=== PATIENT | female | born 1945 | race Caucasian/White ===

== ENCOUNTER 2016-08-24 10:34 | Emergency (ER) | payer OTHER, MEDICAID ==
[2016-08-24] MEDS ORDERED: NITROGLYCERIN 0.4 MG 25 EA TAB SL ONE (10:53)
[2016-08-24] MEDS: NITROGLYCERIN 0.4 MG 25 EA TAB SL PRN ×2 (10:55→11:15)
[2016-08-24] MEDS ORDERED: ASPIRIN (CHEWABLE) 81 MG TAB PO ONE (10:57)
[2016-08-24 11:07] VITALS: TEMP 97
--- NOTE | 2016-08-24 11:25 | RAD ---
EXAM DESCRIPTION: XR CHEST 1 VIEW 08/24/2016 11:17 AM CLINICAL HISTORY: 70 y/o , F, sob COMPARISON: PA and lateral views the chest April 20, 2012 FINDINGS: There is moderate peribronchial thickening throughout the lungs bilaterally. There is patchy right basilar airspace disease. The heart is mildly enlarged. The mediastinal contours are normal in appearance. The thoracic spine is age appropriate. The shoulders are unremarkable. Limited evaluation of the upper abdomen demonstrates no gross abnormalities. IMPRESSION: 1. Cardiomegaly with mild interstitial pulmonary edema. 2. Right basilar airspace disease, likely atelectasis of secondary to edema. Electronically signed by: Maryan Medley MD 08/24/2016 11:23
[2016-08-24] MEDS ORDERED: NITROGLYCERIN/D5W IV 250 ML IVS SCH (11:30)
[2016-08-24] MEDS ORDERED: METOPROLOL TARTRATE INJ 5 MG/5 ML VIAL IV ONE (11:52)
[2016-08-24] MEDS ORDERED: ENOXAPARIN SODIUM 100 MG/ML SYG SUBCU ONE (11:55)
[2016-08-24] MEDS ORDERED: CLOPIDOGREL 75 MG TAB PO ONE (11:55)
[2016-08-24] MEDS ORDERED: ENOXAPARIN SODIUM 30 MG/0.3 ML SYG SUBCU ONE (12:15)
[2016-08-24] MEDS ORDERED: TENECTEPLASE 50 MG VIAL IV ONE (12:18)
--- NOTE | 2016-08-24 12:24 | ED.PDOC ---
History of Present Illness - General Chief Complaint: Respiratory Problem Stated Complaint: shortness of breath Time Seen by Provider: 08/24/16 10:48 Source: patient Exam Limitations: no limitations - History of Present Illness Initial Comments: the patientit is a 70-year-old female presenting to the emergency room secondary to fairly abrupt onset shortness of breath at around 8:30 this morning. Mild chest discomfort to the right upper chest. She reports having had a small cardiac event 4-[address] Braswell at that time. She is only taking a baby aspirin and a blood pressure medication currently. She reports having developed the flu a few days ago. No syncope or near syncope. Just shortness of breath primarily. Systolic blood pressure upon arrival was in the 250s. This was confirmed. The patient was also in atrial fibrillation with a right bundle branch block which was new. We do not have previous EKGs to compare to. There is also some concern for possible ST segment elevation in 2, 3 and aVF. Timing/Duration: 1-3 hours Severity: moderate Improving Factors: nothing Worsening Factors: nothing Allergies/Adverse Reactions: Allergies NO KNOWN ALLERGY Allergy (Verified 08/24/16 11:07) Review of Systems - Review of Systems Constitutional: States: malaise EENTM: States: no symptoms reported Respiratory: States: orthopnea, short of breath Cardiology: States: chest pain - sydnee mild and in the right upper side Gastrointestinal/Abdominal: States: no symptoms reported Genitourinary: States: no symptoms reported Musculoskeletal: States: no symptoms reported Skin: States: no symptoms reported Neurological: States: no symptoms reported All other Systems: No Change from Baseline Past Medical History (General) - Patient Medical History Hx Cardiac Disorders: Yes - PR Hx Congestive Heart Failure: No Hx Hypertension: Yes Surgical History: no surgical history - Vaccination History Hx Influenza Vaccination: No Hx Pneumococcal Vaccination: No - Social History Hx Tobacco Use: No Family Medical History - Family History Mother Family History: Unknown Living Status: Unknown Physical Exam - Physical Exam General Appearance: Alert, Obvious distress, Ill Appearing Eye Exam: bilateral normal Ears, Nose, Throat: normal ENT inspection, normal pharynx Neck: full range of motion, supple, normal inspection Respiratory: other - mild bibasilar rales. Mild increased work of breathing. No significant accessory muscle use. Cardiovascular/Chest: normal peripheral pulses, no edema, other - irregular rhythm Peripheral Pulses: radial,right: 2+, radial,left: 2+ Gastrointestinal/Abdominal: non tender, soft Rectal Exam: deferred Back Exam: normal inspection, no CVA tenderness Extremity: normal range of motion, non-tender, normal inspection, no pedal edema , normal capillary refill Neurologic: alert, normal mood/affect, oriented x 3 Skin Exam: normal color Comments: Vital Signs - 24 hr 08/24/16 08/24/16 08/24/16 11:04 11:13 11:16 Temperature 97 F L Pulse Rate [ 89 89 Left Brachial] Respiratory 24 24 Rate Blood Pressure 200/122 173/117 [Left Arm] O2 Sat by Pulse 96 97 97 Oximetry 08/24/16 08/24/16 08/24/16 11:25 11:40 11:49 Temperature Pulse Rate [ 98 H 98 H 84 Left Brachial] Respiratory 22 26 H 24 Rate Blood Pressure 160/112 173/94 [Left Arm] O2 Sat by Pulse 97 98 Oximetry Progress - Progress Progress: 08/24/16 12:26 the patient is a 70-year-old female presenting with shortness of breath and pulmonary edema related to what appears to be an inferior myocardial infarction. This does appear to be a ST elevation myocardial infarction. I have discussed this patient with cardiology on-call and they do agree that lytics appear warranted based on the EKG and the patient presentation. The patient is being given Lovenox, Plavix, IV nitroglycerin, IV Lopressor, and TNKase along with a dose of aspirin. She is also receiving oxygen. She has not received morphine at this time. Blood pressures have improved significantly with the nitroglycerin and Lopressor. The patient will be continued on the nitroglycerin drip and titrated to an improved systolic blood pressure. Systolic blood pressure was under 180 prior to dosage of the TNKase. Check list was performed prior. Consent was performed prior. The patient will be transferred for higher level of care and likely catheterization. shortness of breath has improved significantly with reduction in blood pressure and the nitroglycerin. 50 minutes of critical care time used in treatment and medical decision making excluding other potentially billable procedures and services. - Results/Orders Results/Orders: Laboratory Tests 08/24/16 10:56 WBC 11.1 H RBC 4.53 Hgb 14.1 Hct 42.4 MCV 93.5 MCH 31.2 H MCHC 33.4 RDW 13.5 Plt Count 272 MPV 9.1 Absolute Neuts (auto) 9.20 H Absolute Lymphs (auto) 1.20 Absolute Monos (auto) 0.50 Absolute Eos (auto) 0.10 Absolute Basos (auto) 0.10 Neutrophils % 82.9 H Lymphocytes % 10.9 L Monocytes % 4.4 Eosinophils % 0.7 L Basophils % 1.1 PT 11.4 INR 1.010 PTT (SP) 29.0 D-Dimer, Quantitative 332 H* Sodium 138 Potassium 3.3 L Chloride 100 L Carbon Dioxide 25 Anion Gap 16.3 BUN 20 H Creatinine 0.90 BUN/Creatinine Ratio 22.2 H Random Glucose 195 H Serum Osmolality 283.7 Calcium 10.0 Magnesium 1.6 L Total Bilirubin 0.5 AST 38 ALT 22 Alkaline Phosphatase 65 Creatine Kinase 151 H CK-MB (CK-2) 21.5 H* CK-MB (CK-2) % 14.24 H Troponin I 2.51 H* B-Natriuretic Peptide 357.0 H* Serum Total Protein 9.1 H Albumin 3.7 Globulin 5.4 H Albumin/Globulin Ratio 0.7 L chest x-ray shows cardiomegaly and some pulmonary edema. Multiple repeat EKG repeat EKGs show atrial fibrillation with good rate control with frequent PVCs. One EKG appears to be a sinus rhythm. The patient does have [address] segment elevation in 2, 3 and aVF consistently. She also has a right bundle branch block. There are T-wave inversions in anterior leads but these are less specific. 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
[2016-08-24 12:52] VITALS: BP 172/126; O2SAT 96
== END 2016-08-24 12:52 | disposition short-term general hospital (02) ==
LOC: ER 10:34
DX: I21.3 ST elevation (STEMI) myocardial infarction of unspecified site (principal); I45.10 Unspecified right bundle-branch block; Z79.82 Long term (current) use of aspirin; Z79.899 Other long term (current) drug therapy; I48.91 Unspecified atrial fibrillation; I25.2 Old myocardial infarction; I10 Essential (primary) hypertension

== ENCOUNTER 2016-09-05 13:25 | Observation (INO) | payer OTHER, MEDICAID ==
--- NOTE | 2016-09-05 13:58 | RAD ---
Study: Single Frontal View of the Chest. Indication:SOB Comparison: August 24, 2016. Impression: Cardiomegaly with slightly improved minimal interstitial edema. Improved aeration right lung base with minimal opacity versus atelectasis persisting. There is however slightly progressed small left pleural effusion. Short-term followup recommended. No pneumothorax. Electronically signed by: Alexander Carrillo MD 09/05/2016 13:56
--- NOTE | 2016-09-05 14:06 | ED.PDOC ---
History of Present Illness - General Chief Complaint: Respiratory Problem Stated Complaint: shortness of breath Time Seen by Provider: 09/05/16 13:39 Source: patient, RN notes reviewed, Vital Signs reviewed, family, old records Exam Limitations: no limitations - History of Present Illness Initial Comments: Patient is a 70 y/o female who recently suffered an MD on 08/24/2016. She was sent to [facility] and underwent a catheterization which showed a completely occluded LAD. This was stented. Patient reports minor SOB over the past week, with increasing SOB the past two days. Today she called her daughter to bring her to the ED because she couldln't breathe. She denies any chest pain. Timing/Duration: getting worse, other - 1 week, increased past 2 days Severity: severe Improving Factors: nothing Worsening Factors: nothing Associated Symptoms: shortness of breath Allergies/Adverse Reactions: Allergies NO KNOWN ALLERGY Allergy (Verified 09/05/16 13:36) Home Medications: Ambulatory Orders Apixaban [Eliquis] 5 mg PO BID 09/05/16 Aspirin [Aspirin Adult Low Dose] 81 mg PO DAILY 09/05/16 Atorvastatin Calcium [Lipitor] 40 mg PO BEDTIME 09/05/16 Calcium Carbonate 600 mg PO BID 09/05/16 Lisinopril 20 mg PO DAILY 09/05/16 Metoprolol Succinate [Metoprolol Succinate ER] 50 mg PO DAILY 09/05/16 Nitroglycerin 0.4 mg SL PRN 09/05/16 Review of Systems - Review of Systems Constitutional: States: no symptoms reported EENTM: States: no symptoms reported Respiratory: States: short of breath Cardiology: States: no symptoms reported. Denies: chest pain, edema, palpitations Gastrointestinal/Abdominal: States: no symptoms reported Genitourinary: States: no symptoms reported Musculoskeletal: States: no symptoms reported Skin: States: no symptoms reported Neurological: States: no symptoms reported Endocrine: States: no symptoms reported Hematologic/Lymphatic: States: no symptoms reported All other Systems: Reviewed and Negative Past Medical History (General) - Patient Medical History Hx Cardiac Disorders: Yes - MD, stent Hx Congestive Heart Failure: No Hx Hypertension: Yes - Vaccination History Hx Influenza Vaccination: No Hx Pneumococcal Vaccination: No - Social History Hx Tobacco Use: No - Activities of Daily Living Hospice Agency (if applicable):: None - Female History Patient is a Female of Child Bearing Age (10 -59 yrs old): No Patient : No Family Medical History - Family History Mother Family History: Unknown Living Status: Unknown Physical Exam - Physical Exam General Appearance: Alert, Anxious, Obvious distress Eye Exam: bilateral normal Ears, Nose, Throat: hearing grossly normal, normal ENT inspection Respiratory: lungs clear, respiratory distress, decreased breath sounds, accessory muscle use, other Cardiovascular/Chest: normal peripheral pulses, no JVD, no murmur, irregularly irregular Gastrointestinal/Abdominal: normal bowel sounds, non tender, soft, no organomegaly Extremity: non-tender, swelling - trace LE edema Neurologic: alert, normal mood/affect, oriented x 3 Skin Exam: normal color, warm/dry Progress - Progress Progress: 09/05/16 15:05 This 70 y/o female had an STEMI on 08/24/2016 which was stented. According to Dr. Braswell, she has diagnonal and side branch LAD, circumflex, and RCA partial to total occlusions. On Echo, she has severe Mitral Valve regurgitation and lower apical akenesis. Since he will be here tomorrow, and because this is clearly a CHF exacerbation, he recommends admitting her here and he will come to see her. - Results/Orders Results/Orders: 09/05/16 09/05/16 09/05/16 13:25 13:42 13:47 Temperature 98.4 F Pulse Rate [ 97 H 79 pulse ox] Respiratory 30 H 32 H 28 H Rate Blood Pressure 157/122 156/76 [Right Arm] O2 Sat by Pulse 94 L 93 L Oximetry 09/05/16 14:24 Temperature Pulse Rate [ 86 pulse ox] Respiratory 24 Rate Blood Pressure 145/98 [Right Arm] O2 Sat by Pulse 95 Oximetry 09/05/16 14:00 EKG STAT Laboratory Results WBC 12.1 K/mm3 (4.8-10.8) H 09/05/16 13:40 RBC 3.52 M/mm3 (4.20-5.40) L 09/05/16 13:40 Hgb 11.33 gm/dL (12.0-16.0) L 09/05/16 13:40 Hct 33.2 % (36.0-47.0) L 09/05/16 13:40 MCV 94.2 fl (81.0-99.0) 09/05/16 13:40 MCH 32.1 pg (27.0-31.0) H 09/05/16 13:40 MCHC 34.0 g/dL (33.0-37.0) 09/05/16 13:40 RDW 13.4 % (11.5-14.5) 09/05/16 13:40 Plt Count 276 K/mm3 (130-400) 09/05/16 13:40 MPV 8.3 fl (7.40-10.4) 09/05/16 13:40 Absolute Neuts (auto) 11.70 K/uL (1.8-6.8) H 09/05/16 13:40 Absolute Lymphs (auto) 1.80 K/uL (1.0-3.4) 09/05/16 13:40 Absolute Monos (auto) 0.90 K/uL (0.2-0.8) H 09/05/16 13:40 Absolute Eos (auto) 0.20 K/uL (0.0-0.4) 09/05/16 13:40 Absolute Basos (auto) 0.10 K/uL (0.0-0.1) 09/05/16 13:40 Neutrophils % 79.5 % (42.0-78.0) H 09/05/16 13:40 Lymphocytes % 12.2 % (20.0-50.0) L 09/05/16 13:40 Monocytes % 5.9 % (2.0-9.0) 09/05/16 13:40 Eosinophils % 1.4 % (1.0-5.0) 09/05/16 13:40 Basophils % 1.4 % (0.0-2.0) 09/05/16 13:40 PT 26.9 SECONDS (9.4-12.5) H* 09/05/16 13:40 INR 2.460 09/05/16 13:40 PTT (SP) 36.9 SECONDS (25.1-36.5) H 09/05/16 13:40 D-Dimer, Quantitative 995 ng/mL (0-230) H* 09/05/16 13:40 Sodium 138 mmol/L (135-145) 09/05/16 13:40 Potassium 3.9 mmol/L (3.6-5.0) 09/05/16 13:40 Chloride 105 mmol/L (101-111) 09/05/16 13:40 Carbon Dioxide 26 mmol/L (21-31) 09/05/16 13:40 Anion Gap 10.9 (12-18) L 09/05/16 13:40 BUN 20 mg/dL (7-18) H 09/05/16 13:40 Creatinine 0.83 mg/dL (0.6-1.3) 09/05/16 13:40 BUN/Creatinine Ratio 24.1 (10-20) H 09/05/16 13:40 Random Glucose 157 mg/dL (70-105) H 09/05/16 13:40 Serum Osmolality 281.5 mOsm/L (275-295) 09/05/16 13:40 Calcium 9.1 mg/dL (8.4-10.2) 09/05/16 13:40 Magnesium 2.0 mg/dL (1.8-2.5) 09/05/16 13:40 Creatine Kinase 33 IU/L (26-140) 09/05/16 13:40 CK-MB (CK-2) 2.5 ng/mL (0.0-4.4) 09/05/16 13:40 CK-MB (CK-2) % Not Reportable 09/05/16 13:40 Troponin I 0.45 ng/mL (0.01-0.05) H* 09/05/16 13:40 B-Natriuretic Peptide 2140.0 pg/ml (0-100) H* 09/05/16 13:40 - EKG/XRAY/CT EKG: RBBB, nonspecific ST T wave Chg - T-wave inversion II, III, aVF, V1, V3, Changed from - No ST elevation - EKGs from 08/24/2016 reviewed Comments: Undetermined rhythm, 86 BPM, INT: RBBB, Lateral infarct (Hx) XRAY: chest Xray Comments: small left pleural effusion, cardiomegaly - Consult/PCP Time Called: 14:30 Consult/PCP: Dr. Braswell Consult Reason/Comments: CHF - admit, diurese and he will see tomorrow. - Additional EKG/XRAY/Consults EKG #2: Atrial, Fibrillation - 88 BPM, RBBB, nonspecific ST T wave Chg - T-wave inversion III, aVF, V3, V4, V5 and V6 Comments: Right-sided, No comparison, Interpretation: Inferior ischemia Departure - Departure Clinical Impression: Acute exacerbation of congestive heart failure Time of Disposition: 15:25 Disposition: Admit Patient Condition: Poor Departure Forms: ED Discharge - Pt. Copy, Patient Portal Self Enrollment Home Medications: Ambulatory Orders Apixaban [Eliquis] 5 mg PO BID 09/05/16 Aspirin [Aspirin Adult Low Dose] 81 mg PO DAILY 09/05/16 Atorvastatin Calcium [Lipitor] 40 mg PO BEDTIME 09/05/16 Calcium Carbonate 600 mg PO BID 09/05/16 Lisinopril 20 mg PO DAILY 09/05/16 Metoprolol Succinate [Metoprolol Succinate ER] 50 mg PO DAILY 09/05/16 Nitroglycerin 0.4 mg SL PRN 09/05/16 Decision To Admit - Decistion To Admit Decision to Admit Reason: Admit from ER Decision to Admit Date: 09/05/16 Decision to Admit Time: 14:58 - Elkin Williamson., accepted
[2016-09-05] MEDS ORDERED: FUROSEMIDE INJ 100 MG/10 ML VIAL IV ONE (14:17)
--- NOTE | 2016-09-05 15:41 | HP ---
SUPERVISING PHYSICIAN: Reynold Groves MD CHIEF COMPLAINT: Shortness of breath. HISTORY OF PRESENT ILLNESS: This is a 70 year-old female patient who presented to the Emergency Room this afternoon having shortness of breath. She is a patient of Siomara Lozano at [facility]. On August 24, she was in the Emergency Room and was transferred to [facility] due to an acute myocardial infarction. She underwent a catheterization at the time of admission at [facility] and which showed a completely occluded left anterior descending that was stented. Dr. Braswell was the rd lab technician. An echocardiogram was done. She was discharged on the . She was to have a followup appointment with Dr. Braswell today and her daughters were taking her to [place]. When she was trying to get her into the car she became very short of breath and stated she could not breathe. The patient states this has been going on for the last 2 to 3 days and progressively worsened so much today that she had difficulty even getting into the car. She presented to the Emergency Room and her oxygen saturations were fairly stable in the low 90s but she was extremely tachypneic with a respiratory rate of 38 breaths per minute. In the Emergency Room, her WBC was 12.1, RBC 3.52, hemoglobin 11.3, hematocrit 33.2. She had a left shift. Her sodium was 138, potassium 3.9, BUN 20, creatinine 0.83. Troponin was slightly elevated at 0.45 and her BNP was 2,140. The Emergency Room physician called Dr. Braswell and he recommended she be admitted to the hospital for congestive heart failure and diuresis and he would see her tomorrow when he came to [place] for his clinic day. I was called for hospital admission. She was given 80 mg of Lasix in the Emergency Room. PAST MEDICAL HISTORY: 1. Coronary artery disease. 2. Hyperlipidemia. 3. Elevated fasting glucose. 4. Hypertension. 5. Gastroesophageal reflux disease. 6. Acute [place] in August 2016. PAST SURGICAL HISTORY: 1. Coronary artery stent placement in 2008. 2. Stent placement in August 2016. CURRENT MEDICATIONS: Per the EMR awaiting verification. ALLERGIES: NO KNOWN DRUG ALLERGIES. SOCIAL HISTORY: She is retired. She has 3 children. She denies any tobacco, ETOH or illicit drug use. REVIEW OF SYSTEMS: GENERAL: She complains of a slight weight gain but she does not know the exact weight increase. She also complains of fatigue. Denies any chills or fever. HEENT: Denies sinus symptoms, vision changes, ear pain or sore throat. RESPIRATORY: As per the history of present illness. CARDIAC: Denies chest pain, palpitations or tachycardia. GI: Denies nausea, vomiting, diarrhea or constipation. NEUROLOGICAL: Denies headaches, dizziness or seizures. EXTREMITIES: Denies any edema to the lower extremities. PHYSICAL EXAMINATION: VITAL SIGNS: She is afebrile. Heart rate 78, blood pressure 154/95, respiratory rate has varied from 38 on admission to the low 30s and down to the low 20s, most of the time is around 28 breaths per minute. 02 saturation is 94 % on 2 liters nasal cannula. GENERAL: This is a 70 year-old obese female who is lying in her hospital bed. She is in mild respiratory distress. HEENT: Normocephalic and atraumatic. Pupils are equal and reactive. Oropharynx is clear. NECK: Supple without masses. There is a slightly discernible jugular venous distention. CHEST: There are a few fine scattered crackles throughout the apices, otherwise , somewhat diminished breath sounds. CARDIOVASCULAR: Regular rate and rhythm. ABDOMEN: Rounded, obese, nondistended, non-tender. Bowel sounds are positive. EXTREMITIES: There is a +1 pedal edema to bilateral lower extremities. Her pedal pulses are +1 bilaterally. NEUROLOGIC: She is awake, alert, and oriented x3. LABORATORY: As per history of present illness. RADIOLOGY: Chest x-ray shows cardiomegaly with slightly improved minimal interstitial edema with a minimal opacity versus atelectasis in the right lung base. There is a small left pleural effusion. All other labs and films have been reviewed via the EMR. ASSESSMENT: 1. Congestive heart failure of unknown etiology, new onset with BNP of greater than 2000. 2. Recent acute [place] with stent placement at [facility] on 08/24/16. 3. Coronary artery disease. 4. Hyperlipidemia. 5. Elevated glucose without diagnosis of diabetes mellitus. 6. Hyperlipidemia. 7. Acid reflux. PLAN: We will admit the patient under the congestive heart failure guidelines. Dr. Braswell will see the patient tomorrow when he is in [place]. I have ordered some Lasix. I will recheck her potassium and magnesium later this evening. I will also put her on Accu-Cheks as her blood sugars are slightly elevated. We will order Protonix for ulcer prophylaxis as well as Lovenox for DVT prophylaxis. I will restart her home medications. Will do routine labs and chest x-ray in the morning. She will need close followup with Siomara Rosado at [facility] as well as Dr. Braswell. We will continue to monitor the patient closely and followup as needed. Dr. Groves is the collaborating physician available for consultation. #[id number] [facility]
[2016-09-05] MEDS ORDERED: NITROGLYCERIN 0.4 MG 25 EA TAB SL PRN ×2 (18:10→18:11)
[2016-09-05] MEDS ORDERED: SODIUM CHLORIDE 0.9% (FLUSH) 10 ML SYG IV PRN (18:11)
[2016-09-05] MEDS ORDERED: IV SET AND CAP CHANGE INJ INJ SCH ×2 (18:30)
[2016-09-05] MEDS ORDERED: FUROSEMIDE INJ 40 MG/4 ML VIAL IV ONE (20:00)
[2016-09-05] MEDS: SODIUM CHLORIDE 0.9% (FLUSH) 10 ML SYG IV PRN (20:21)
[2016-09-05] MEDS ORDERED: HYDROcodone 10MG/APAP 325MG 1 EA TAB ONE (22:31)
[2016-09-05] MEDS ORDERED: ENOXAPARIN SODIUM 40 MG/0.4 ML SYG SUBCU SCH (23:45)
[2016-09-05] MEDS ORDERED: GLUCAGON INJ 1 MG VIAL SUBCU PRN (23:56)
[2016-09-05] MEDS ORDERED: DEXTROSE 50% 25 GM/50 ML SYG IV PRN (23:56)
--- NOTE | 2016-09-06 00:14 | PCM.CORE ---
Physician DVT/VTE - Prophylaxis Currently: Patient already on anticoagulation therapy - Nurse DVT Assessment & Total Each Risk Factor Represents 3 Points: Medical PT with Hx of VT, CHF, Severe infection/sepsis Each Risk Factor is 1 Point: Obesity (BMI >25) DVT Assessment Score: 4 - 3-4 High Risk Treatments: Early Ambulation *, Sequential Compression Device
[2016-09-06] MEDS ORDERED: POTASSIUM CHLORIDE 20 MEQ TAB PO ONE (00:15)
[2016-09-06] MEDS: PANTOPRAZOLE SODIUM IV 40 MG VIAL IV SCH ×2 (00:15→23:32)
--- NOTE | 2016-09-06 06:59 | RAD ---
EXAM: Two view chest. INDICATION: Chest pain. COMPARISON: Chest x-ray: 09/05/2016. FINDINGS: There is pulmonary vascular congestion with interstitial edema. Small pleural effusions are present. The heart is enlarged. There is no pneumothorax. The bones are unchanged. IMPRESSION: CHF exacerbation Electronically signed by: Keagan Wong MD 09/06/2016 6:58 AM [employer]
[2016-09-06] MEDS: INSULIN LISPRO 100 UNITS/ML PEN SUBCU SCH ×4 (07:22→21:58)
[2016-09-06] MEDS: LISINOPRIL 10 MG TAB PO SCH (08:40)
[2016-09-06] MEDS: ASPIRIN EC 81 MG TAB PO SCH (08:40)
[2016-09-06] MEDS: SODIUM CHLORIDE 0.9% (FLUSH) 10 ML SYG IV SCH ×2 (08:42→20:34)
[2016-09-06] MEDS: APIXABAN 2.5 MG TAB PO SCH ×2 (08:48→20:33)
[2016-09-06] MEDS: METOPROLOL SUCCINATE XL 50 MG TAB PO SCH (08:48)
[2016-09-06] MEDS ORDERED: NITROGLYCERIN 0.2 MG/HR PATCH TD SCH (09:00)
[2016-09-06] MEDS ORDERED: FUROSEMIDE INJ 40 MG/4 ML VIAL IV SCH (09:00)
[2016-09-06] MEDS: ACETAMINOPHEN 325 MG TAB PO PRN (10:52)
[2016-09-06] MEDS: NITROGLYCERIN 0.4 MG/HR PATCH TOP SCH (12:35)
[2016-09-06] MEDS: HYDROcodone 5MG/APAP 325MG 1 EA TAB PO PRN ×2 (16:06→20:33)
[2016-09-06] MEDS ORDERED: FUROSEMIDE INJ 20 MG/2 ML VIAL IV ONE ×2 (17:00)
--- NOTE | 2016-09-06 19:11 | PN ---
DATE: 09/06/16 SUPERVISING PHYSICIAN: Donny Spears M.D. SUBJECTIVE: The patient feels much better today. He did diurese off a good deal of fluids and feels much better today as far as breathing and respiratory effort. She remains afebrile. OBJECTIVE: T max 97.6, pulse 82, blood pressure 147/94, respirations 20, O2 sat showing 98% on nasal cannula at 1 liter at rest. I's and O's show 480 in, 2850 out with a total negative balance of 2370. Weight 117.0 kg. CHEST: Lungs are much improved today. There is no obvious rales or rhonchi but lungs do continue to be diminished towards the bases. HEART: regular rate and rhythm. ABDOMEN: Obese but soft, non-tender. Positive bowel sounds. EXTREMITIES: There is only a trace of edema this morning bilaterally. NEUROLOGIC: She is alert and oriented times three. LABORATORY: White count 14.2, hemoglobin 11.7, hematocrit 35.2, platelet count 83,000. Differential does continue to show a left shift. Chemistries today show normal electrolytes with potassium 3.6, BUN 21, creatinine 1.0, glucose 101 to 120, hemoglobin A1c 6.6, calcium 8.8. Liver functions show to be within normal limits. RADIOLOGY: Chest x-ray this morning per radiology interpretation showed acute congestive heart failure exacerbation with pulmonary vascular congestion and interstitial edema with small pleural effusions noted. ASSESSMENT: 1. Congestive heart failure of unknown etiology with new onset of congestive heart failure with a BNP of greater than 2,000 on admission having recently had an acute myocardial infarction. 2. Recent acute myocardial infarction with angioplasty at [facility] on 08/24/16. 3. Coronary artery disease. 4. Hyperlipidemia. 5. Elevated glucose with no previous history of diabetes mellitus with a current hemoglobin of 6.6. 6. Gastroesophageal reflux disease. 7. Hypertension. 8. Thrombocytopenia, unknown etiology. Will continue to monitor. 9. Leukocytosis with unknown etiology. At this point, close monitoring continued as the patient is afebrile. PLAN: Will continue to monitor the patient closely. She did see Dr. Braswell today. He recommended that we do continue with diuresis tonight. I did start her on a Nitro patch at 0.2 mcg per hour for the hypertension. Dr. Braswell recommended that we increase the Nitro to 0.4 during the day and to take off the patch at night. Dr. Braswell also recommended that at discharge we continue the patient on Lasix 20 mg daily with p.o. potassium replacement of 10 mEq. Will continue to monitor the patient closely. She is on Eliquis and the Lovenox has been stopped. Will monitor platelet count tomorrow with repeat laboratory studies. Anticipate probable discharge tomorrow. Once the patient is discharged she will need close clinical followup with the [facility] as well as a repeat followup that has already been scheduled throughout Dr. Braswell' office. Until then, will continue to monitor the patient closely and treat appropriately. #[id number] [facility]
[2016-09-06] MEDS ORDERED: ATORVASTATIN 20 MG TAB PO ONE (19:42)
[2016-09-06] MEDS: ATORVASTATIN 20 MG TAB PO SCH (20:33)
[2016-09-06] MEDS: REMOVE OLD PATCH TOP SCH (21:59)
[2016-09-06] MEDS ORDERED: MAGNESIUM HYDROXIDE 30 ML UD PO PRN (22:07)
[2016-09-06] MEDS: SODIUM CHLORIDE 0.9% (FLUSH) 10 ML SYG IV PRN (23:32)
[2016-09-07] MEDS: ACETAMINOPHEN 325 MG TAB PO PRN ×2 (06:31→15:28)
[2016-09-07] MEDS: INSULIN LISPRO 100 UNITS/ML PEN SUBCU SCH ×4 (07:26→21:00)
[2016-09-07] MEDS ORDERED: POTASSIUM CHLORIDE 10 MEQ TAB PO ONE (07:52)
[2016-09-07] MEDS: POTASSIUM CHLORIDE 10 MEQ TAB PO SCH (07:53)
[2016-09-07] MEDS: LISINOPRIL 10 MG TAB PO SCH (08:47)
[2016-09-07] MEDS: ASPIRIN EC 81 MG TAB PO SCH (08:47)
[2016-09-07] MEDS: SODIUM CHLORIDE 0.9% (FLUSH) 10 ML SYG IV SCH ×2 (08:47→20:31)
[2016-09-07] MEDS: NITROGLYCERIN 0.4 MG/HR PATCH TOP SCH (08:47)
[2016-09-07] MEDS: METOPROLOL SUCCINATE XL 50 MG TAB PO SCH (08:47)
[2016-09-07] MEDS: FUROSEMIDE 40 MG TAB PO SCH (08:50)
[2016-09-07] MEDS ORDERED: FUROSEMIDE 40 MG TAB ONE (08:50)
[2016-09-07] MEDS: APIXABAN 2.5 MG TAB PO SCH (08:51)
--- NOTE | 2016-09-07 09:31 | RAD ---
NAME: SHY DUBOISPROCEDURE: XR CHEST 2 VIEWSORDER DATE: 09/07/2016 7:00 AM CSTACCESSION NUMBER: [id number] CLINICAL HISTORY: CHF INDICATION: Same as above COMPARISON: 09/06/2016 TECHNIQUE: PA and and lateral chest radiographs were obtained. FINDINGS: Tiny left-sided pleural effusion remains unchanged. There is mild bilateral vascular congestion, unchanged There are no superimposed airspace infiltrates or pleural effusions The cardiomediastinal silhouette is stable. IMPRESSION: Tiny left-sided pleural effusion remains unchanged. There is mild bilateral vascular congestion, unchanged . Stable cardiomegaly. Place of interpretation: [facility]. Electronically signed by: Gurvinder Dale MD 09/07/2016 9:30 AM [facility] [employer] [facility]
--- NOTE | 2016-09-07 19:52 | PN ---
DATE: 09/07/16 SUPERVISING PHYSICIAN: Donny Spears M.D. SUBJECTIVE: The patient is doing well today. It was reported that she had a very large bowel movement with approximately 70 mL of bright red blood this morning. She does remain afebrile. She has had no chest pains or shortness of breath. OBJECTIVE: VITAL SIGNS: Blood pressure 143/90, respirations 20, O2 sat showing 96%, pulse 70, T max 98.1. I's and O's show a negative balance of 1608 with 1017 in, 2065 out. GENERAL: The patient appears in no acute distress. Very pleasant. CHEST: Lungs are clear today bilaterally without any notable rhonchi , wheezing or rales. Aeration is much improved. HEART: Regular rate and rhythm. ABDOMEN: Obese but soft, non-tender. Positive bowel sounds. EXTREMITIES: No clubbing, cyanosis or edema today. NEUROLOGIC: She is alert and oriented times three. LABORATORY: White count 12.7, hemoglobin stable at 11.7, hematocrit 34.3, platelet count has decreased to 43,000 today. Differential does show to be within normal limits without a left shift. Chemistries show normal electrolytes with potassium 4.0, BUN 21, creatinine 0.86, glucoses have been 117 to 173, calcium 8.9. RADIOLOGY: Chest x-ray per radiology interpretation shows a tiny left sided pleural effusion unchanged with mild bilateral vascular congestion unchanged. Stable cardiomegaly. ASSESSMENT: 1. Congestive heart failure of unknown etiology with new onset of congestive heart failure with a BNP of greater than 2,000 on admission having recently had an acute myocardial infarction. 2. Recent acute myocardial infarction with balloon angioplasty without any stent placement at [facility] on 08/24/16. 3. Thrombocytopenia with some noted rectal bleeding with the patient having been recently started on Eliquis. 4. Coronary artery disease. 5. Hyperlipidemia. 6. Elevated glucose with no previous history of diabetes mellitus with a current hemoglobin of 6.6. 7. Gastroesophageal reflux disease. 8. Hypertension. 9. Leukocytosis unknown etiology with the patient showing improvement and the patient remaining afebrile. PLAN: We were planning to discharge the patient today, however her platelet count dropped significantly overnight as well as she was showing some rectal bleeding. Given those new findings, the patient will need to stay an additional 24 hours for close observation. Plan to repeat an H&H and a platelet count at 1800 today and stop her Eliquis. She is already on aspirin. Will continue with this and closely monitor. She has been started on p.o. Lasix 20 mg as well as potassium 10 mEq. Will hopefully be able to discharge tomorrow with the patient remaining on aspirin with close followup required at [facility] this week for repeat laboratory studies. Should her H&H show decline as well as platelet count, certainly considerations for further treatment at a higher level of care will be warranted. However, the patient is stable at this point. Until discharge, will continue to monitor the patient closely and treat appropriately. #[id number] [facility]
[2016-09-07] MEDS: ATORVASTATIN 20 MG TAB PO SCH (20:31)
[2016-09-07] MEDS: REMOVE OLD PATCH TOP SCH (21:52)
[2016-09-07] MEDS: SODIUM CHLORIDE 0.9% (FLUSH) 10 ML SYG IV PRN (23:30)
[2016-09-07] MEDS: PANTOPRAZOLE SODIUM IV 40 MG VIAL IV SCH (23:30)
[2016-09-08] MEDS: INSULIN LISPRO 100 UNITS/ML PEN SUBCU SCH ×2 (07:06→11:41)
[2016-09-08] MEDS: POTASSIUM CHLORIDE 10 MEQ TAB PO SCH (07:59)
[2016-09-08] MEDS: ASPIRIN EC 81 MG TAB PO SCH (08:58)
[2016-09-08] MEDS: FUROSEMIDE 40 MG TAB PO SCH (08:58)
[2016-09-08] MEDS: NITROGLYCERIN 0.4 MG/HR PATCH TOP SCH (08:59)
[2016-09-08] MEDS: SODIUM CHLORIDE 0.9% (FLUSH) 10 ML SYG IV SCH (08:59)
[2016-09-08] MEDS: METOPROLOL SUCCINATE XL 50 MG TAB PO SCH (08:59)
[2016-09-08] MEDS: LISINOPRIL 10 MG TAB PO SCH (08:59)
[2016-09-08] MEDS ORDERED: APIXABAN 2.5 MG TAB PO SCH (09:00)
[2016-09-08 10:23] VITALS: BP 126/84; TEMP 97.7; O2SAT 95
--- NOTE | 2016-09-09 11:10 | DS ---
SUPERVISING PHYSICIAN: Reynold Groves MD DISCHARGE DIAGNOSIS: 1. Congestive heart failure of unknown etiology, new onset with BNP of greater than 2000 on admission having recently had an acute myocardial infarction. 2. Recent acute myocardial infarction with balloon angioplasty without stent placement at [facility] on 08/24/16. 3. Thrombocytopenia with some noted rectal bleeding with the patient having recently been started on Eliquis, however, after repeat of platelet count using calcium citrate anticoagulation, platelet count was shown to be normal as the patient appears to have an EDTA antibody resulting in platelet clumping. 4. Coronary artery disease. 5. Hyperlipidemia. 6. Elevated glucose with no previous history of diabetes mellitus with current hemoglobin A1c of 6.6. 7. Gastroesophageal reflux disease. 8. Hypertension. 9. Leukocytosis on admission, unknown etiology, with the patient being afebrile , showing improvement. HISTORY OF PRESENT ILLNESS: Ms. Rivera is a 70 year-old female patient who presented to the Emergency department on the afternoon of admission with shortness of breath. She is a patient of Siomara Lozano at [facility]. On August 24, she was in the Emergency Room and was transferred to [facility] due to an acute myocardial infarction. She underwent a catheterization at the time of admission at [facility] and which showed some blockage that was ballooned as per Dr. Braswell' report, but apparently no stents were placed. An echocardiogram was done. She was discharged on August 28. She was to have a followup appointment with Dr. Braswell on date of admission and her daughters were taking her to [place]. When she was trying to get her into the car, she became very short of breath and stated she could not breathe. The patient states the shortness of breath had been going on for 2 to 3 days and progressively worsened to the point that she had difficulty even getting into the car and could not breathe, so she presented to the Emergency Room. Her oxygen saturations were fairly stable in the low 90s, but she was extremely tachypneic with a respiratory rate of 38 breaths per minute. In the Emergency Room, her white count was 12.1, hemoglobin 11.3, hematocrit 33.2. She had a left shift. Electrolytes were within normal limits. Troponin was only slightly elevated at 0.45 and her BNP was 2,140. The Emergency Room physician called Dr. Braswell and he recommended she be admitted to [facility] for congestive heart failure and diuresis and to be seen the day after admission in [place] in specialty clinic. She was admitted in stable condition after being given 80 mg of Lasix in the Emergency Department. LABORATORY: Initial white count on admission was 12.1, maxed out at 14.2, however, normalized by discharge to 10.7. Initial hemoglobin and hematocrit were 11.3 and 33.2 and remained stable. At time, were 11.7 and 35.3. Platelet count initially was 276. However, she showed a decrease on 09/06/16 to 83 and again on 09/07/16 down to 43,000, which was repeated later in the afternoon and was 101,000 and again on discharge shows 260,000. It was reported she had multiple platelet clumping secondary to a likely antibody to EDTA and after repeat platelet count on calcium citrate, there was no platelet clumping noted. Differential did show a left shift on admission, however, this normalized by discharge. Coagulations on admission showed PT 26.9 with an INR of 2.4 and PT- T 36.9 with D-dimer 995. Chemistries on admission showed normal electrolytes with potassium 3.9, BUN 20, creatinine 0.83. Glucose was 157 initially. Liver functions were within normal limits. Magnesium 2.0. Troponin was 0.45, but the patient had a recent myocardial infarction the first part of the month. BNP was elevated at 2140. Repeat laboratory studies throughout her stay showed stable electrolytes and at time of discharge, calcium 4.0, BUN 20, creatinine 0.89, glucose ranged from 101 to 173. Hemoglobin A1c was just above normal at 6.6%. She had one occult blood that was negative. MICROBIOLOGY: No specimens submitted for review. RADIOLOGY: She had three chest x-rays. Initial chest x-ray in the Emergency Department prior to admission showed no pneumothorax. Compared to 08/24/16, there was improved aeration of the right lung base and minimal opacity versus atelectasis persisting with a slightly progressed small left pleural effusion. Followup x-rays on 09/06/15 per radiology interpretation showed pulmonary vascular congestion with interstitial edema and small pleural effusions with heart enlarged consistent with congestive heart failure exacerbation. Final x- ray was performed on 09/07/16 the day prior to discharge and per radiology interpretation showed tiny left sided pleural effusion, unchanged with mild bilateral vascular congestion noted to be unchanged. HOSPITAL COURSE: Ms. Rivera was admitted from the Emergency Department as noted in the history of present illness for exacerbation of congestive heart failure and worsening shortness of breath. She was given Lasix 80 mg in the Emergency Department. Initial vital signs on admission showed her to be hypertensive with blood pressure 157/122. She was short of breath with 94% saturation with respirations being anywhere from 28 to 32. She was afebrile through the entire hospitalization. After diuresis throughout the hospitalization stay, her blood pressure showed improvement. She was started on a nitroglycerin patch and at time of discharge, her blood pressure was 126/ 84. Saturation 95% with normal respirations at 18. Heart rate ranged through hospitalization from 55 to 93. Echo report was reviewed and showed severe mitral valve regurgitation with some lower apical akinesis. EKG showed a right bundle branch block with nonspecific ST wave changes with T-wave inversions in II, III, AVF, V1, V3 change from non-ST elevation EKGs on 08/24/16 as reviewed. She does have a history of myocardial infarction on 08/24/16. Another EKG performed in the Emergency Department on review showed the patient had atrial fibrillation with a right bundle branch block. The patient was already on Eliquis started just prior to admission to the Floor. The patient was seen in followup clinic during hospitalization by Dr. Braswell. He did recommend that we continue with nitro patch 0.4 per hour to be changed out at night and continue with Lasix 20 mg at discharge along with potassium. She did show good diuresis through admission with well over 4.5 liters diuresed. Weight was fairly stable. On initial attempts to discharge on 09/07/16, it was noted the patient was having some mynor blood in her stools and along with a platelet count of 40, 000, it was felt the patient would benefit from at least stopping Eliquis and observation overnight to further evaluate for any rectal bleeding or complications secondary to Eliquis given her platelet count. During that time frame overnight, she had no more rectal bleeding and her platelet count showed to be normal, possibly secondary to EDTA antibody that caused clumping. Her hemoglobin and hematocrit remained stable and the patient was stable and felt well enough to be discharged to have clinical followup with [facility] as well as Dr. Braswell. PLAN: The patient was discharged on 09/08/16 to have close clinical followup with Dr. Braswell and [facility]. She was to followup with Dr. Braswell as previously scheduled and to call [facility] on Friday to set up an appointment. She was to resume her home medications as previously instructed and to start new medications as directed. Diet was to be cardiac , low soduim and fluid restrictions of less than 1800 mL per 24 hours.She was to wear the nitro patch, which is a new prescription, through the day, place in the morning and take off at night prior to bedtime. She was also instructed to watch her weight, weigh herself daily and should she have fluctuation greater than 3 pounds or shortness of breath, she was notify the clinic or come back to the hospital. She was to hold her Eliquis on discharge and resume the morning after discharge as well as have a repeat hemoglobin and hematocrit and a platelet count on 09/10/16, with results being sent to [facility] as well as to myself. She was to told to the Emergency Room should she have any worsening or failure of improvement of her symptoms or any recurrence rectal bleeding and any worsening shortness of breath. At time of discharge, she was stable. New prescriptions provided included: 1. Lasix 20 mg daily, #30. 2. Potassium chloride 10 mEq at breakfast, #30. 3. Nitroglycerin patch 0.4 mg per hour, place in the morning and remove at hour of sleep, #30. Other home medications included aspirin, lisinopril, metoprolol, calcium carbonate, Lipitor, and Eliquis. She was discharged in stable condition. #[id number] [facility]
--- NOTE | 2016-10-06 23:46 | RAD ---
NAME: SHY DUBOISPROCEDURE: XR CHEST 2 VIEWSORDER DATE: 09/07/2016 7:00 AM CSTACCESSION NUMBER: [id number] CLINICAL HISTORY: CHF INDICATION: Same as above COMPARISON: 09/06/2016 TECHNIQUE: PA and and lateral chest radiographs were obtained. FINDINGS: Tiny left-sided pleural effusion remains unchanged. There is mild bilateral vascular congestion, unchanged There are no superimposed airspace infiltrates or pleural effusions The cardiomediastinal silhouette is stable. IMPRESSION: Tiny left-sided pleural effusion remains unchanged. There is mild bilateral vascular congestion, unchanged . Stable cardiomegaly. Place of interpretation: Teleradiology. Electronically signed by: Gurvinder Dale MD 09/07/2016 9:30 AM RIVER GUIDE
--- NOTE | 2016-10-06 23:46 | RAD ---
EXAM: Two view chest. INDICATION: Chest pain. COMPARISON: Chest x-ray: 09/05/2016. FINDINGS: There is pulmonary vascular congestion with interstitial edema. Small pleural effusions are present. The heart is enlarged. There is no pneumothorax. The bones are unchanged. IMPRESSION: CHF exacerbation Electronically signed by: Keagan Wong MD 09/06/2016 6:58 AM BENDER MACHINE OPERATOR
--- NOTE | 2016-10-07 00:11 | RAD ---
EXAM: Two view chest. INDICATION: Chest pain. COMPARISON: Chest x-ray: 09/05/2016. FINDINGS: There is pulmonary vascular congestion with interstitial edema. Small pleural effusions are present. The heart is enlarged. There is no pneumothorax. The bones are unchanged. IMPRESSION: CHF exacerbation Electronically signed by: Keagan Wong MD 09/06/2016 6:58 AM JAVA MOBILE DEVELOPER
--- NOTE | 2016-10-07 00:18 | RAD ---
EXAM: Two view chest. INDICATION: Chest pain. COMPARISON: Chest x-ray: 09/05/2016. FINDINGS: There is pulmonary vascular congestion with interstitial edema. Small pleural effusions are present. The heart is enlarged. There is no pneumothorax. The bones are unchanged. IMPRESSION: CHF exacerbation Electronically signed by: Keagan Wong MD 09/06/2016 6:58 AM HOSPITAL MEDICINE DIRECTOR
--- NOTE | 2016-10-07 00:35 | RAD ---
EXAM: Two view chest. INDICATION: Chest pain. COMPARISON: Chest x-ray: 09/05/2016. FINDINGS: There is pulmonary vascular congestion with interstitial edema. Small pleural effusions are present. The heart is enlarged. There is no pneumothorax. The bones are unchanged. IMPRESSION: CHF exacerbation Electronically signed by: Keagan Wong MD 09/06/2016 6:58 AM HEAD WELL PULLER
--- NOTE | 2016-10-07 01:20 | RAD ---
NAME: SHY DUBOISPROCEDURE: XR CHEST 2 VIEWSORDER DATE: 09/07/2016 7:00 AM CSTACCESSION NUMBER: [id number] CLINICAL HISTORY: CHF INDICATION: Same as above COMPARISON: 09/06/2016 TECHNIQUE: PA and and lateral chest radiographs were obtained. FINDINGS: Tiny left-sided pleural effusion remains unchanged. There is mild bilateral vascular congestion, unchanged There are no superimposed airspace infiltrates or pleural effusions The cardiomediastinal silhouette is stable. IMPRESSION: Tiny left-sided pleural effusion remains unchanged. There is mild bilateral vascular congestion, unchanged . Stable cardiomegaly. Place of interpretation: Teleradiology. Electronically signed by: Gurvinder Dale MD 09/07/2016 9:30 AM TOOLING SUPERVISOR
--- NOTE | 2016-10-07 02:12 | RAD ---
NAME: SHY DUBOISPROCEDURE: XR CHEST 2 VIEWSORDER DATE: 09/07/2016 7:00 AM CSTACCESSION NUMBER: [id number] CLINICAL HISTORY: CHF INDICATION: Same as above COMPARISON: 09/06/2016 TECHNIQUE: PA and and lateral chest radiographs were obtained. FINDINGS: Tiny left-sided pleural effusion remains unchanged. There is mild bilateral vascular congestion, unchanged There are no superimposed airspace infiltrates or pleural effusions The cardiomediastinal silhouette is stable. IMPRESSION: Tiny left-sided pleural effusion remains unchanged. There is mild bilateral vascular congestion, unchanged . Stable cardiomegaly. Place of interpretation: Teleradiology. Electronically signed by: Gurvinder Dale MD 09/07/2016 9:30 AM CLOTHES DESIGNER
--- NOTE | 2016-10-07 04:24 | RAD ---
NAME: SHY DUBOISPROCEDURE: XR CHEST 2 VIEWSORDER DATE: 09/07/2016 7:00 AM CSTACCESSION NUMBER: [id number] CLINICAL HISTORY: CHF INDICATION: Same as above COMPARISON: 09/06/2016 TECHNIQUE: PA and and lateral chest radiographs were obtained. FINDINGS: Tiny left-sided pleural effusion remains unchanged. There is mild bilateral vascular congestion, unchanged There are no superimposed airspace infiltrates or pleural effusions The cardiomediastinal silhouette is stable. IMPRESSION: Tiny left-sided pleural effusion remains unchanged. There is mild bilateral vascular congestion, unchanged . Stable cardiomegaly. Place of interpretation: Teleradiology. Electronically signed by: Gurvinder Dale MD 09/07/2016 9:30 AM RESIDENT MEDICAL OFFICER
--- NOTE | 2016-10-07 05:34 | RAD ---
NAME: SHY DUBOISPROCEDURE: XR CHEST 2 VIEWSORDER DATE: 09/07/2016 7:00 AM CSTACCESSION NUMBER: [id number] CLINICAL HISTORY: CHF INDICATION: Same as above COMPARISON: 09/06/2016 TECHNIQUE: PA and and lateral chest radiographs were obtained. FINDINGS: Tiny left-sided pleural effusion remains unchanged. There is mild bilateral vascular congestion, unchanged There are no superimposed airspace infiltrates or pleural effusions The cardiomediastinal silhouette is stable. IMPRESSION: Tiny left-sided pleural effusion remains unchanged. There is mild bilateral vascular congestion, unchanged . Stable cardiomegaly. Place of interpretation: [facility]. Electronically signed by: Gurvinder Dale MD 09/07/2016 9:30 AM RESPIRATORY CARE PRACTITIONER
== END 2016-09-08 14:25 | disposition home health service (06) ==
LOC: ER 13:25 → INTOOBSV 15:41 → MS 15:41
PROVIDERS: ADMIT Family Medicine; ATTEND Nurse Practitioner Family
DX: I50.9 Heart failure, unspecified (principal); R06.02 Shortness of breath; I25.2 Old myocardial infarction; D69.6 Thrombocytopenia, unspecified; K62.5 Hemorrhage of anus and rectum; I25.10 Atherosclerotic heart disease of native coronary artery without angina pectoris; E78.5 Hyperlipidemia, unspecified; R73.09 Other abnormal glucose; K21.9 Gastro-esophageal reflux disease without esophagitis; I10 Essential (primary) hypertension; D72.829 Elevated white blood cell count, unspecified; I45.10 Unspecified right bundle-branch block; I48.91 Unspecified atrial fibrillation; J90 Pleural effusion, not elsewhere classified; Z79.01 Long term (current) use of anticoagulants; Z79.82 Long term (current) use of aspirin; Z79.899 Other long term (current) drug therapy; Z95.5 Presence of coronary angioplasty implant and graft

== ENCOUNTER 2016-09-10 08:22 | Inpatient (IN) | payer OTHER, MEDICAID ==
--- NOTE | 2016-09-10 10:53 | RAD ---
EXAM DESCRIPTION: XR CHEST 2 VIEWS CLINICAL HISTORY: sob COMPARISON: September 07, 2016 FINDINGS: The heart is enlarged, stable the prior study. Mediastinal contours are otherwise unremarkable. There is a probable small left-sided pleural effusion. Subsegmental atelectasis or scarring is noted in the lung bases, but no airspace consolidation or definite right-sided pleural effusion is identified. The central bronchovascular markings are indistinct. There is no pneumothorax or acute fracture. IMPRESSION: Mild CHF including a tiny left-sided pleural effusion. Overall, findings are stable from 3 days prior. Electronically signed by: Prem Ramos DO 09/10/2016 10:50
--- NOTE | 2016-09-10 13:21 | ED.PDOC ---
History of Present Illness - General Chief Complaint: Respiratory Problem Stated Complaint: shortness of breath Time Seen by Provider: 09/10/16 08:29 Source: patient Exam Limitations: no limitations - History of Present Illness Initial Comments: the patient is a 70-year-old female presenting to the emergency room secondary to episode of shortness of breath. The patient had a ST elevation myocardial infarction approximately 2 weeks ago and underwent catheterization. Since that time she has spent approximately 10 days in the hospital. The patient did have a significant CHF exacerbation related to the heart attack. The patient was largely immobilized during that time. She is severely deconditioned. The patient went home 2 days ago and has barely been active. She is very weak and having a hard time getting around. She came to the hospital this morning to have some blood drawn and with the ambulation of approximately 20 yards she developed severe shortness of breath. No chest pain. No palpitations. Just shortness of breath. She also developed anxiety with the development of shortness of breath. She is obviously severely deconditioned. She does have some mild edema. This is apparently significantly better than it was last week. No fevers. Timing/Duration: 4-6 hours Severity: moderate Improving Factors: rest Worsening Factors: movement Associated Symptoms: cough, loss of appetite, malaise, shortness of breath, weakness Allergies/Adverse Reactions: Allergies NO KNOWN ALLERGY Allergy (Verified 09/05/16 13:36) Home Medications: Ambulatory Orders Apixaban [Eliquis] 5 mg PO BID 09/05/16 Apixaban [Eliquis] 5 mg PO BID 09/05/16 Aspirin [Aspirin Adult Low Dose] 81 mg PO DAILY 09/05/16 Aspirin [Baby Aspirin] 81 mg PO DAILY 09/05/16 Atorvastatin Calcium [Lipitor] 40 mg PO BEDTIME 09/05/16 Atorvastatin Calcium [Lipitor] 40 mg PO BEDTIME 09/05/16 Calcium Carbonate 600 mg PO BID 09/05/16 Calcium Carbonate 600 mg PO BID 09/05/16 Lisinopril 09/05/16 Lisinopril 20 mg PO DAILY 09/05/16 Metoprolol Succinate ER 09/05/16 Metoprolol Succinate [Metoprolol Succinate ER] 50 mg PO DAILY 09/05/16 Metoprolol Succinate [Metoprolol Succinate ER] 50 mg PO DAILY 09/05/16 Nitroglycerin 0.4 mg SL PRN 09/05/16 Furosemide [Lasix Tab] 20 mg PO DAILY #30 tab 09/08/16 Nitroglycerin Patch 0.4 mg/Hr [Nitro-Dur PATCH 0.4 mg/hour] 0.4 mg TOP QD #30 patch 09/08/16 Potassium Chloride Tab [Micro-K] 10 meq PO DAILYBK #30 tab 09/08/16 Review of Systems - Review of Systems Constitutional: States: malaise, weakness EENTM: States: no symptoms reported Respiratory: States: cough, short of breath Cardiology: States: edema Gastrointestinal/Abdominal: States: no symptoms reported Genitourinary: States: no symptoms reported Musculoskeletal: States: no symptoms reported Skin: States: no symptoms reported Neurological: States: anxiety, weakness Endocrine: States: no symptoms reported All other Systems: No Change from Baseline Past Medical History (General) - Patient Medical History Hx Cardiac Disorders: Yes - recent ID,CAD Hx Congestive Heart Failure: Yes Hx Hypertension: Yes Hx Gastroesophageal Reflux: Yes Hx MRSA: No - Vaccination History Hx Influenza Vaccination: Yes - 2016 Hx Pneumococcal Vaccination: Yes - 2016 - Social History Hx Tobacco Use: No - Female History Patient : No Family Medical History - Family History Mother Family History: Unknown Living Status: Hx Family Cancer: Yes Physical Exam - Physical Exam General Appearance: Alert, Anxious, Obvious distress Eye Exam: bilateral normal Ears, Nose, Throat: normal ENT inspection, normal pharynx Neck: full range of motion, supple, normal inspection Respiratory: chest non-tender, lungs clear - with the exception of mild bibasilar rales, respiratory distress - mildmild, accessory muscle use Cardiovascular/Chest: normal peripheral pulses, no edema, other - atrial fibrillation Peripheral Pulses: radial,right: 2+, radial,left: 2+, dorsalis pedis,right: 2+, dorsalis pedis,left: 2+ Gastrointestinal/Abdominal: non tender, soft Rectal Exam: deferred Back Exam: normal inspection, no CVA tenderness, no vertebral tenderness Extremity: normal range of motion, non-tender, no calf tenderness, normal capillary refill, pedal edema Neurologic: alert, oriented x 3 Skin Exam: normal color Comments: Vital Signs - 24 hr 09/10/16 09/10/16 09/10/16 08:31 10:27 11:12 Temperature 97.9 F Pulse Rate [ 91 H 81 Left Ulnar] Respiratory 20 22 22 Rate Blood Pressure 154/76 157/106 [Left Arm] O2 Sat by Pulse 95 94 L Oximetry Progress - Progress Progress: 09/10/16 13:25 the patient is a 70-year-old female presenting to the emergency room secondary to shortness of breath. The patient is significantly deconditioned and does still have some congestive heart failure that needs to be dealt with. The patient needs to undergo cardiopulmonary rehabilitation due to her recent myocardial infarction and hospitalization. The patient has agreed to this. Low -flow oxygen may be recommended with activity even with a normal oxygen saturation to improve cardiac function in the short-term. The patient does additionally have some significant anxiety complicating the issue. This will need to be dealt with as well. We will plan on admitting the patient to swing bed for continued care of these problems. - Results/Orders Results/Orders: 09/10/16 08:45 Telemetry .CONTINUOUS 09/10/16 09:00 EKG STAT shows atrial fibrillation with good rate control. There is a right bundle branch block. There are T-wave inversions in leads 3, aVF and V3. This EKG is consistent with the EKG from September 05 of this year. It is significantly different from her EKG prior to the heart attack. Chest x-ray shows significant cardiomegaly with possible small pleural effusions. Laboratory Results - last 24 hr 09/10/16 09/10/16 09/10/16 09:10 10:06 12:05 WBC 8.1 RBC 3.80 L Hgb 11.8 L Hct 35.8 L MCV 94.3 MCH 31.0 MCHC 32.8 L RDW 13.8 Plt Count 159 MPV 9.2 Absolute Neuts (auto) 6.20 Absolute Lymphs (auto) 1.10 Absolute Monos (auto) 0.40 Absolute Eos (auto) 0.30 Absolute Basos (auto) 0.10 Neutrophils % 76.8 Lymphocytes % 13.6 L Monocytes % 4.8 Eosinophils % 3.5 Basophils % 1.3 PT 17.0 H INR 1.530 PTT (SP) 34.6 Sodium 138 Potassium 4.0 Chloride 107 Carbon Dioxide 27 Anion Gap 8.0 L BUN 14 Creatinine 0.86 BUN/Creatinine Ratio 16.3 Random Glucose 155 H D Serum Osmolality 279.3 Calcium 8.8 Magnesium 2.1 Total Bilirubin 0.5 AST 22 ALT 19 Alkaline Phosphatase 68 Creatine Kinase 51 51 CK-MB (CK-2) 2.5 2.2 CK-MB (CK-2) % Not Reportable Not Reportable Troponin I 0.16 H* 0.15 H* B-Natriuretic Peptide 618.0 H* Serum Total Protein 8.2 Albumin 3.2 Globulin 5.0 H Albumin/Globulin Ratio 0.6 L Urine Color Yellow Urine Appearance Sl cloudy Urine pH 7.0 Ur Specific White 1.010 Urine Protein Trace Urine Glucose (UA) Negative Urine Ketones Negative Urine Blood Large H Urine Nitrite Negative Urine Bilirubin Negative Urine Urobilinogen 0.2 Ur Leukocyte Esterase Negative Urine RBC 5-10 H Urine WBC 0 Ur Epithelial Cells 1-3 Urine Bacteria 0 Departure - Departure Clinical Impression: Physical deconditioning, Anxiety about health Congestive heart failure Qualifiers: Congestive heart failure chronicity: acute on chronic Disposition: Admit Patient Departure Forms: ED Discharge - Pt. Copy, Patient Portal Self Enrollment Home Medications: Ambulatory Orders Apixaban [Eliquis] 5 mg PO BID 09/05/16 Apixaban [Eliquis] 5 mg PO BID 09/05/16 Aspirin [Aspirin Adult Low Dose] 81 mg PO DAILY 09/05/16 Aspirin [Baby Aspirin] 81 mg PO DAILY 09/05/16 Atorvastatin Calcium [Lipitor] 40 mg PO BEDTIME 09/05/16 Atorvastatin Calcium [Lipitor] 40 mg PO BEDTIME 09/05/16 Calcium Carbonate 600 mg PO BID 09/05/16 Calcium Carbonate 600 mg PO BID 09/05/16 Lisinopril 09/05/16 Lisinopril 20 mg PO DAILY 09/05/16 Metoprolol Succinate ER 09/05/16 Metoprolol Succinate [Metoprolol Succinate ER] 50 mg PO DAILY 09/05/16 Metoprolol Succinate [Metoprolol Succinate ER] 50 mg PO DAILY 09/05/16 Nitroglycerin 0.4 mg SL PRN 09/05/16 Furosemide [Lasix Tab] 20 mg PO DAILY #30 tab 09/08/16 Nitroglycerin Patch 0.4 mg/Hr [Nitro-Dur PATCH 0.4 mg/hour] 0.4 mg TOP QD #30 patch 09/08/16 Potassium Chloride Tab [Micro-K] 10 meq PO DAILYBK #30 tab 09/08/16 Decision To Admit - Decistion To Admit Decision to Admit Reason: Medical Nature Decision to Admit Date: 09/10/16 Decision to Admit Time: 13:27
[2016-09-10] MEDS ORDERED: SODIUM PHOS/BIPHOS ENEMA ADULT 133 ML BTTL PR PRN (16:02)
[2016-09-10] MEDS ORDERED: MAGNESIUM HYDROXIDE 30 ML UD PO PRN (16:02)
[2016-09-10] MEDS ORDERED: NITROGLYCERIN 0.4 MG 25 EA TAB SL PRN (17:30)
--- NOTE | 2016-09-10 18:08 | PCM.CORE ---
Physician DVT/VTE - Prophylaxis Currently: Patient already on anticoagulation therapy - [facility] - Nurse DVT Assessment & Total Each Risk Factor Represents 3 Points: Medical PT with Hx of [place], CHF, Severe infection/sepsis Each Risk Factor Represents 2 Points: Age 60-74 Each Risk Factor is 1 Point: Obesity (BMI >25) DVT Assessment Score: 6 - 5 or more Very High Risk Treatments: Early Ambulation *, Sequential Compression Device
[2016-09-10] MEDS: LISINOPRIL 10 MG TAB PO SCH (18:38)
[2016-09-10] MEDS: FUROSEMIDE 40 MG TAB PO SCH (18:39)
[2016-09-10] MEDS: ASPIRIN EC 81 MG TAB PO SCH (18:39)
[2016-09-10] MEDS: METOPROLOL SUCCINATE XL 50 MG TAB PO SCH (18:40)
[2016-09-10] MEDS ORDERED: CALCIUM CARBONATE-VITAMIN D 500 MG TAB ONE (19:48)
[2016-09-10] MEDS ORDERED: APIXABAN 2.5 MG TAB PO ONE (19:48)
[2016-09-10] MEDS ORDERED: ATORVASTATIN 20 MG TAB PO ONE (19:48)
[2016-09-10] MEDS: NYSTATIN POWDER 15GM BTTL TOP SCH (21:29)
[2016-09-10] MEDS: APIXABAN 2.5 MG TAB PO SCH (21:29)
[2016-09-10] MEDS: CALCIUM CARBONATE-VITAMIN D 500 MG TAB PO SCH (21:29)
[2016-09-10] MEDS: ATORVASTATIN 20 MG TAB PO SCH (21:29)
[2016-09-10] MEDS: ACETAMINOPHEN 500 MG TAB PO PRN (23:39)
[2016-09-11] MEDS ORDERED: DOCUSATE SODIUM 100 MG CAP ONE (07:32)
[2016-09-11] MEDS: CALCIUM CARBONATE-VITAMIN D 500 MG TAB PO SCH ×2 (07:45→17:32)
[2016-09-11] MEDS: POTASSIUM CHLORIDE 10 MEQ TAB PO SCH (07:45)
--- NOTE | 2016-09-11 08:11 | HP ---
SUPERVISING PHYSICIAN: Aakash Spears MD CHIEF COMPLAINT: Shortness of breath. HISTORY OF PRESENT ILLNESS: Ms. Rivera is a 70-year-old, female patient who presented to the Emergency Department complaining of shortness of breath. The patient has a history of a recent ST elevation myocardial infarction within the last month at which time she underwent catheterization. She spent a lengthy time in the hospital and at discharge she had gone home after which time she had a significant congestive heart failure exacerbation that was related to the heart attack. She was admitted to [facility] on 09/05/16 for exacerbation of congestive heart failure. She was then discharged on 09/08/16. She was to have some followup laboratory studies today on date of admission when she started having severe shortness of breath trying to ambulate from her car to the laboratory to have her blood drawn. She denied any chest pains or palpitations, just worsening shortness of breath. It was also noted that she had some anxiety that was associated with the shortness of breath. Laboratory studies were completed in the Emergency Department and white count was noted to be normal at 8.1, hemoglobin and hematocrit were stable at 11.8 and 35.8 compared to past discharge as well as platelet count was normal at 159. BNP was 618, which was significantly decreased from when she was admitted previously on 09/05/16 when it was 2,140. Her other chemistries were within normal limits. Troponin was 0.015, which was much improved from initial on 09/05/16 of 0.45 prior to discharge from hospitalization on 09/05/16. Radiographic studies of the chest were completed as well and per radiology interpretation, there was note of mild congestive heart failure with a tiny left sided pleural effusion which was noted to be stable from previous three days comparison on 09/07/16. EKG showed that she was in atrial fibrillation with rate control and with no significant change from previous admission. The patient was significantly noted to be deconditioned with continued congestive heart failure, although improving, but secondary to lengthy hospitalization within the last 20 days, it was felt the patient would benefit from rehabilitation and reconditioning through Swing Bed admission. It was noted by the family members that the patient had gone home after the last discharge and basically did nothing in regards to increasing her activity. At this point, the patient will be admitted to Swing Bed for physical therapy to assist in reconditioning and increasing her strength to ensure that when she goes home, she will be able to function at a level as prior to previous admission. She was admitted to Swing Bed in stable condition. PAST MEDICAL HISTORY: 1. Coronary artery disease. 2. Hyperlipidemia. 3. Elevated fasting glucose. 4. Hypertension. 5. Gastroesophageal reflux disease. 6. Acute myocardial infarction in August 2016. 7. New onset congestive heart failure secondary to acute myocardial infarction with echocardiogram showing mitral valve regurgitation with the patient having recent hospitalization with an elevated BNP. PAST SURGICAL HISTORY: 1. Coronary artery stent placement in 2008. 2. Angioplasty in August 2016. HOME MEDICATIONS: 1. Potassium chloride 10 mEq daily. 2. Nitroglycerin patch 0.4 mg per hour daily to be taken off at bedtime. 3. Sublingual nitroglycerin for chest pain 0.4 mg. 4. Metoprolol succinate Extended Release 50 mg daily. 5. Lisinopril 20 mg daily. 6. Lasix 20 mg daily. 7. Calcium carbonate 600 mg twice daily. 8. Lipitor 40 mg daily. 9. Aspirin 81 mg daily. 10. Eliquis 5 mg twice daily. ALLERGIES: NO KNOWN DRUG ALLERGIES. SOCIAL HISTORY: She is retired. She has 3 children. She denies any tobacco, alcohol or illicit drug use. FAMILY HISTORY: Unremarkable. REVIEW OF SYSTEMS: CONSTITUTIONAL: The patient denies any significant weight loss or weight changes. She has general weakness as noted in history of present illness. HEENT: Denies sinus symptoms, visual change, ear pain or sore throat. RESPIRATORY: As noted in history of present illness. CARDIOVASCULAR: As noted in history of present illness, recent myocardial infarction, but denies any current chest pains, palpitations or tachycardia. GASTROINTESTINAL: Denies nausea or vomiting. Denies diarrhea or constipation. GENITOURINARY: Denies dysuria, nocturia or increased frequency. NEUROLOGIC: Denies headaches, dizziness or seizures. EXTREMITIES: Notes some bilateral lower extremity edema. PHYSICAL EXAMINATION: VITAL SIGNS: Temperature 98.3. Pulse 78. Blood pressure 166/92. Respirations 20. O2 saturation 96% on room air. Admission weight 115.8 kg. GENERAL: The patient is seen in the Emergency Room and appears to be in no acute distress. She is very pleasant, well-nourished, well-hydrated and alert. HEENT: Tympanic membranes clear bilaterally. Oropharynx is pink, moist without any lesions. NECK: No jugular venous distention noted. CHEST: Lungs are diminished towards the bases, but rales, rhonchi or wheezing are heard. CARDIOVASCULAR: Slightly irregular with atrial fibrillation with well controlled ventricular rate noted on bedside monitor. ABDOMEN: Obese, but soft, nontender. Positive bowel sounds. EXTREMITIES: There is no cyanosis or clubbing. There is trace pedal edema bilaterally. NEUROLOGIC: The patient is alert and oriented times three. Facial features are symmetrical. Extraocular movements are within normal limits. There is no nystagmus. There are no notable focalizing neuromotor deficits. LABORATORY: White count 8.1, hemoglobin 11.8, hematocrit 35.8, platelet count 159,000, differential with no left shift. Coagulation studies show PT 17.0, INR 1.5, PT-T 34.6. Chemistries show normal electrolytes with potassium 4.0, BUN 14, creatinine 0.86, glucose 155. Liver function within normal limits. Troponin initially 0.16 and at discharge to Swing Bed from the Emergency Room was 0.15. BNP 618, which is improved from previous admission of well over 2, 000. Urinalysis showed just a large amount of blood on dipstick with trace protein. Microscopic exam revealed only 5 to 10 RBCs, no bacteria, no WBCs. RADIOLOGY: Chest x-ray per radiology interpretation showed mild congestive heart failure including a tiny pleural effusion which appears to be stable from previous x-rays on 09/07/16. ASSESSMENT: 1. Recent exacerbation of congestive heart failure requiring three day hospitalization after an acute myocardial infarction requiring balloon angioplasty in [place] the first part of the the month with the patient now having significant deconditioning requiring admission to Swing Bed for strengthening, physical therapy and reconditioning to ensure the patient's safety and ability performed her activities of daily living once discharged. 2. Congestive heart failure, acute, secondary to recent myocardial infarction with mitral valve regurgitation per report without any current echocardiogram reports to review with unknown ejection fraction. 3. Acute myocardial infarction in August 2016 with angioplasty without stent placement with the patient showing improvement physiologically and clinically, only notable for some deconditioning and weakness secondary to #1 and #2. 4. Hypertension. 5. Morbid obesity. 6. Gastroesophageal reflux disease. PLAN: The patient will be placed in Swing Bed for strengthening and reconditioning. Physical therapy will be consulted for evaluation and treatment plan. She will be started on DVT prophylaxis per protocol. She is already on Eliquis. We will monitor her weight and repeat laboratory in 7 days if the patient is not discharged or earlier if needed if clinical condition warrants. We will start her medications back once they have been updated and verified. Anticipate length of stay to be anywhere from 3 to 5 days. Until then, we will work on discharge planning with the patient being followed up with her primary care provider at [facility] as well as her block press operator, Dr. Braswell, in the near future. Until then, we will continue to monitor the patient closely and treat appropriately. #[id number] [facility]
[2016-09-11] MEDS: NITROGLYCERIN 0.4 MG/HR PATCH TOP SCH ×2 (08:49)
[2016-09-11] MEDS: DOCUSATE SODIUM 100 MG CAP PO SCH (08:50)
[2016-09-11] MEDS: APIXABAN 2.5 MG TAB PO SCH ×2 (08:50→21:07)
[2016-09-11] MEDS: FUROSEMIDE 40 MG TAB PO SCH (08:50)
[2016-09-11] MEDS: LISINOPRIL 10 MG TAB PO SCH (08:51)
[2016-09-11] MEDS: ASPIRIN EC 81 MG TAB PO SCH (08:51)
[2016-09-11] MEDS: NYSTATIN POWDER 15GM BTTL TOP SCH ×4 (08:52→21:07)
[2016-09-11] MEDS: METOPROLOL SUCCINATE XL 50 MG TAB PO SCH (08:52)
[2016-09-11] MEDS: ACETAMINOPHEN 500 MG TAB PO PRN ×2 (14:56→22:30)
--- NOTE | 2016-09-11 21:00 | PN ---
DATE: 09/11/16 SUBJECTIVE: The patient is up ambulating quite well today and appears to be more alert and more active today as rehabilitation continues. OBJECTIVE: Room air saturation 94%, blood pressure 143/83 and afebrile. No laboratory studies today. ASSESSMENT: 1. Chronic congestive heart failure with a recent exacerbation requiring hospitalization in [place]. 2. History of acute myocardial infarction requiring balloon angioplasty a few weeks ago with significant deconditioning and weakness requiring Swing Bed for rehabilitation, strengthening and therapy at this time. 3. History of hypertension. 4. History of obesity. 5. History of gastroesophageal reflux disease. PLAN: Continue with rehabilitation under Physical Therapy supervision. Observe closely for blood pressure changes or evidence of hypoxia or desaturation. Ambulation study ordered for in the morning. Close followup suggested. #[id number] [facility]
[2016-09-11] MEDS: ATORVASTATIN 20 MG TAB PO SCH (21:07)
[2016-09-12] MEDS: CALCIUM CARBONATE-VITAMIN D 500 MG TAB PO SCH ×2 (07:51→17:06)
[2016-09-12] MEDS: POTASSIUM CHLORIDE 10 MEQ TAB PO SCH (07:51)
[2016-09-12] MEDS: FUROSEMIDE 40 MG TAB PO SCH (08:45)
[2016-09-12] MEDS: APIXABAN 2.5 MG TAB PO SCH ×2 (08:47→20:42)
[2016-09-12] MEDS: LISINOPRIL 10 MG TAB PO SCH (08:47)
[2016-09-12] MEDS: ASPIRIN EC 81 MG TAB PO SCH (08:48)
[2016-09-12] MEDS: METOPROLOL SUCCINATE XL 50 MG TAB PO SCH (08:48)
[2016-09-12] MEDS: DOCUSATE SODIUM 100 MG CAP PO SCH (08:48)
[2016-09-12] MEDS: NITROGLYCERIN 0.4 MG/HR PATCH TOP SCH (08:48)
[2016-09-12] MEDS: NYSTATIN POWDER 15GM BTTL TOP SCH ×4 (08:52→20:42)
[2016-09-12] MEDS: ACETAMINOPHEN 500 MG TAB PO PRN ×2 (12:14→23:17)
--- NOTE | 2016-09-12 18:24 | PN ---
DATE: 09/12/16 SUBJECTIVE: The patient is now entering her third day of Swing Bed rehabilitation under Physical Therapy supervision. She seems to have more confidence. Discussed with the therapists and they feel that hopefully she will be able to continue with ongoing rehab with some of it self directed over this weekend and then reevaluate the first of next week and get her home after that. Hopefully the reconditioning will also assist with her post myocardial infarction rehabilitation. OBJECTIVE: Exam is unchanged. #[id number] [facility]
[2016-09-12] MEDS: ATORVASTATIN 20 MG TAB PO SCH (20:42)
[2016-09-12] MEDS: TEMAZEPAM 15 MG CAP PO PRN (23:21)
[2016-09-13] MEDS: CALCIUM CARBONATE-VITAMIN D 500 MG TAB PO SCH ×2 (07:32→16:41)
[2016-09-13] MEDS: POTASSIUM CHLORIDE 10 MEQ TAB PO SCH (07:32)
[2016-09-13] MEDS: ASPIRIN EC 81 MG TAB PO SCH (08:33)
[2016-09-13] MEDS: LISINOPRIL 10 MG TAB PO SCH (08:33)
[2016-09-13] MEDS: FUROSEMIDE 40 MG TAB PO SCH (08:33)
[2016-09-13] MEDS: DOCUSATE SODIUM 100 MG CAP PO SCH (08:34)
[2016-09-13] MEDS: APIXABAN 2.5 MG TAB PO SCH ×2 (08:34→20:49)
[2016-09-13] MEDS: NITROGLYCERIN 0.4 MG/HR PATCH TOP SCH (08:35)
[2016-09-13] MEDS: NYSTATIN POWDER 15GM BTTL TOP SCH ×5 (08:35→20:50)
[2016-09-13] MEDS: METOPROLOL SUCCINATE XL 50 MG TAB PO SCH (08:35)
[2016-09-13] MEDS: ACETAMINOPHEN 500 MG TAB PO PRN (10:49)
--- NOTE | 2016-09-13 17:28 | PN ---
DATE: 09/13/16 SUPERVISING PHYSICIAN: Reynold Groves M.D. SUBJECTIVE: The patient is on her fourth day of Swing Bed admission for rehabilitation and physical therapy. She does show good progression. She been able to ambulate through the hallways. She has had no complaints of worsening shortness of breath or any chest pains. OBJECTIVE: VITAL SIGNS: Stable with temperature 97.4, pulse 60, blood pressure 132/91, respirations 18, O2 96% on room air. CHEST: Clear to auscultation. HEART: Regular rate and rhythm. ABDOMEN: Obese but soft, non-tender. Positive bowel sounds. EXTREMITIES: No clubbing, cyanosis or edema. NEUROLOGIC: She is alert and oriented times three. LABORATORY AND RADIOLOGY: There are no laboratory or radiology studies for review. ASSESSMENT: 1. Swing Bed admission for rehabilitation and strengthening secondary to extensive hospitalizations within the last 30 days. 2. History of congestive heart failure with a recent exacerbation secondary to myocardial infarction being followed by Dr. Braswell. No echocardiogram is available for review currently. 3. History of acute myocardial infarction in August 2016 with angioplasty without stent placement with the patient having some notable deconditioning and weakness secondary to acute injury and a lengthy hospitalization. 4. Hypertension. 5. Morbid obesity. 6. Gastroesophageal reflux disease. PLAN: The patient will continue in Swing Bed with her physical therapy. Anticipate her discharge either Friday or Friday. Until then, will continue to monitor the patient closely and treat appropriately. She will need a 2 wheeled rolling walked at time of discharge and then close followup with her primary care provider at [facility]. #[id number] [facility]
[2016-09-13] MEDS: ATORVASTATIN 20 MG TAB PO SCH (20:49)
[2016-09-13] MEDS: TEMAZEPAM 15 MG CAP PO PRN (22:21)
[2016-09-14] MEDS: ACETAMINOPHEN 500 MG TAB PO PRN ×2 (00:56→10:56)
[2016-09-14] MEDS: CALCIUM CARBONATE-VITAMIN D 500 MG TAB PO SCH ×2 (07:10→16:54)
[2016-09-14] MEDS: POTASSIUM CHLORIDE 10 MEQ TAB PO SCH (07:10)
[2016-09-14] MEDS: FUROSEMIDE 40 MG TAB PO SCH (08:33)
[2016-09-14] MEDS: APIXABAN 2.5 MG TAB PO SCH ×2 (08:33→20:31)
[2016-09-14] MEDS: METOPROLOL SUCCINATE XL 50 MG TAB PO SCH (08:33)
[2016-09-14] MEDS: LISINOPRIL 10 MG TAB PO SCH (08:33)
[2016-09-14] MEDS: DOCUSATE SODIUM 100 MG CAP PO SCH ×2 (08:33→20:31)
[2016-09-14] MEDS: NITROGLYCERIN 0.4 MG/HR PATCH TOP SCH (08:34)
[2016-09-14] MEDS: NYSTATIN POWDER 15GM BTTL TOP SCH ×4 (08:34→20:31)
[2016-09-14] MEDS: ASPIRIN EC 81 MG TAB PO SCH (08:34)
--- NOTE | 2016-09-14 12:36 | PN ---
DATE: 09/14/16 SUPERVISING PHYSICIAN: Reynold Groves M.D. SUBJECTIVE: The patient continues to do well with physical therapy. She was sitting in the bedside chair. She has had no complaints. OBJECTIVE: Physical examination is unchanged. PLAN: Will continue with physical therapy and monitor closely. Anticipate discharge possibly on Friday or Friday at the discretion of Physical Therapy. Until discharge, will continue to monitor the patient closely and treat appropriately. #[id number] [facility]
[2016-09-14] MEDS: ATORVASTATIN 20 MG TAB PO SCH (20:31)
[2016-09-14] MEDS: TEMAZEPAM 15 MG CAP PO PRN (22:55)
[2016-09-14] MEDS: SODIUM CHLORIDE 0.65% NASAL SPRAY 45 ML BTTL BNAS PRN (23:10)
[2016-09-15] MEDS: ACETAMINOPHEN 500 MG TAB PO PRN ×2 (02:59→11:05)
[2016-09-15] MEDS: POTASSIUM CHLORIDE 10 MEQ TAB PO SCH (07:55)
[2016-09-15] MEDS: CALCIUM CARBONATE-VITAMIN D 500 MG TAB PO SCH ×2 (07:55→17:10)
[2016-09-15] MEDS: ASPIRIN EC 81 MG TAB PO SCH (09:06)
[2016-09-15] MEDS: LISINOPRIL 10 MG TAB PO SCH (09:06)
[2016-09-15] MEDS: FUROSEMIDE 40 MG TAB PO SCH (09:06)
[2016-09-15] MEDS: DOCUSATE SODIUM 100 MG CAP PO SCH (09:06)
[2016-09-15] MEDS: METOPROLOL SUCCINATE XL 50 MG TAB PO SCH (09:06)
[2016-09-15] MEDS: APIXABAN 2.5 MG TAB PO SCH ×2 (09:07→20:53)
[2016-09-15] MEDS: NITROGLYCERIN 0.4 MG/HR PATCH TOP SCH (09:07)
[2016-09-15] MEDS: NYSTATIN POWDER 15GM BTTL TOP SCH (09:11)
[2016-09-15] MEDS: ATORVASTATIN 20 MG TAB PO SCH (20:53)
[2016-09-15] MEDS ORDERED: REMOVE OLD PATCH TOP SCH (21:00)
[2016-09-15] MEDS: SODIUM CHLORIDE 0.65% NASAL SPRAY 45 ML BTTL BNAS PRN ×2 (22:42→23:50)
[2016-09-15] MEDS: TEMAZEPAM 15 MG CAP PO PRN (22:42)
[2016-09-16 06:52] VITALS: BP 141/61; TEMP 97.5
[2016-09-16] MEDS: CALCIUM CARBONATE-VITAMIN D 500 MG TAB PO SCH (07:36)
[2016-09-16] MEDS: POTASSIUM CHLORIDE 10 MEQ TAB PO SCH (07:36)
[2016-09-16 07:38] VITALS: O2SAT 95
[2016-09-16] MEDS: ASPIRIN EC 81 MG TAB PO SCH (08:31)
[2016-09-16] MEDS: APIXABAN 2.5 MG TAB PO SCH (08:32)
[2016-09-16] MEDS: FUROSEMIDE 40 MG TAB PO SCH (08:32)
[2016-09-16] MEDS: DOCUSATE SODIUM 100 MG CAP PO SCH (08:32)
[2016-09-16] MEDS: LISINOPRIL 10 MG TAB PO SCH (08:33)
[2016-09-16] MEDS: NITROGLYCERIN 0.4 MG/HR PATCH TOP SCH (08:33)
[2016-09-16] MEDS: METOPROLOL SUCCINATE XL 50 MG TAB PO SCH (08:34)
[2016-09-16] MEDS: ACETAMINOPHEN 500 MG TAB PO PRN (09:27)
--- NOTE | 2016-09-16 13:25 | DS ---
SUPERVISING PHYSICIAN: Aakash Spears MD DISCHARGE DIAGNOSIS: 1. Exacerbation of congestive heart failure requiring admission to Swing bed, requiring a three day hospitalization in Acute Care after the patient had an acute myocardial infarction requiring balloon angioplasty in [place] the first part of August 2016. The patient had shown significant deconditioning after two previous hospital admissions and requiring Swing Bed admission for strengthening, physical therapy and reconditioning to ensure the patient's safety and ability performed her activities of daily living once discharged. 2. Congestive heart failure, acute, secondary to recent myocardial infarction with mitral valve regurgitation per report without any current echocardiogram reports at time of admission to review with unknown ejection fraction. 3. Acute myocardial infarction in August 2016 with angioplasty without stent placement with the patient showing improvement physiologically and clinically, only notable for some deconditioning and weakness secondary to #1 and #2. 4. Hypertension. 5. Morbid obesity. 6. Gastroesophageal reflux disease. 7. Chronic atrial fibrillation with a controlled ventricular rate with the patient being on Eliquis. 8. Mild chronic rash underneath the panniculus of the abdomen, stable and improving at time of discharge. HISTORY OF PRESENT ILLNESS: Ms. Rivera is a 70-year-old, female patient who presented to the Emergency Department complaining of shortness of breath. The patient has a history of a recent ST elevation myocardial infarction in August at which time she underwent catheterization. She spent a lengthy time in the hospital and at discharge she had gone home after which time she had a significant congestive heart failure exacerbation that was related to the heart attack. She was admitted to [facility] on 09/05/16 for exacerbation of congestive heart failure. She was then discharged on 09/08/16. She was to have some followup laboratory studies on the date of admission when she started having severe shortness of breath trying to ambulate from her car to the laboratory to have her blood drawn. She denied any chest pains or palpitations, just increasing shortness of breath with exertion. It was also noted that she had some anxiety that was associated with the shortness of breath. Laboratory studies were completed in the Emergency Department and white count was noted to be within normal limits, hemoglobin 11.8 and hematocrit 358 with BNP of 618, which was significantly decreased from previous admission on 09/05/16 when it was 2,140. Her other chemistries were within normal limits. Troponin had decreased to 0.15, which was improved from initial on 09/05/16 of 0.45 prior to discharge from hospitalization on . Radiographic studies of the chest were completed as well and per radiology interpretation, there was note of mild congestive heart failure with a tiny left sided pleural effusion which was noted to be stable from previous three days comparison on 09/07/16. EKG showed that she was in atrial fibrillation with rate control and with no significant change from previous admission. The patient was significantly noted to be deconditioned with continued congestive heart failure, although improving, but secondary to lengthy hospitalization within the last 30 days, it was felt the patient would benefit from rehabilitation and reconditioning through Swing Bed admission. It was noted by the family members that the patient had gone home after the last discharge and basically did nothing in regards to increasing her activity. The patient was admitted to Swing Bed for physical therapy to assist in reconditioning and increasing her strength to ensure that when she was discharged, she could safely perform her daily activities. She was admitted to Swing Bed in stable condition. LABORATORY: White count on admission to [facility] was 8.1, hemoglobin 11.8, hematocrit 35.8, platelet count 159,000, differential within normal limits. Coagulation studies showed PT 17.0, INR 1.5, PT-T 34.6. Chemistries showed normal electrolytes with potassium 4.0, BUN 14, creatinine 0.86, glucose 155. Liver function within normal limits. Troponin initially on admission to the Emergency Room of 0.16 and at time of admission the Medical/Surgical Floor was 0.15. BNP was 618, which was showing improvement from previous admission of well over 2,000. Urinalysis showed large amount of blood on dipstick with 5 to 10 RBCs on microscopic exam. No bacteria, no WBCs. RADIOLOGY: No radiographic studies were completed during Swing Bed admission. HOSPITAL COURSE: Ms. Rivera was a 70-year-old, female that was admitted from the Emergency Department with severe weakness secondary to extended hospitalization as noted in history of present illness. She was admitted in stable condition and started on physical therapy under the guidance of our physical therapy department. She did very well, showed daily improvement and at time of discharge was able to walk the entire of the hospital hallway between the nurses desk and the back door with the use of a walker with no significant dyspnea. She had no other complaints through hospitalization and was felt to be able to be discharged to continue with home health and physical therapy. PLAN: The patient is discharged to have close clinical followup at [facility] with Halina Rosado within the next 7 days or sooner. She is to have home health through [facility]. She was instructed to resume all her previous medications and was given Nystatin powder prescription for rash underneath her panniculus. She was instructed to resume her activities and increase as possible per physical therapy and continue with [facility] at home. She was to walk with a walker at all times and to use caution when changing position from sitting to standing to prevent any falls. Diet instructions were for low salt, low fat diet. She was instructed to return to the hospital should she not have any improvement. She was discharged with one prescription, Nystatin powder apply daily as needed for rash. Other other medications were continued as previous to admission. CONDITION AT TIME OF DISCHARGE: Good and stable. #[id number] [facility]
== END 2016-09-16 13:35 | disposition home health service (06) | DRG 948 ==
LOC: ER 08:22 → MS 14:31
PROVIDERS: ADMIT Nurse Practitioner Family; ATTEND Nurse Practitioner Family
DX: R53.1 Weakness (principal); I11.0 Hypertensive heart disease with heart failure; I50.9 Heart failure, unspecified; K21.9 Gastro-esophageal reflux disease without esophagitis; I48.2 Chronic atrial fibrillation; R21 Rash and other nonspecific skin eruption; I34.0 Nonrheumatic mitral (valve) insufficiency; I25.10 Atherosclerotic heart disease of native coronary artery without angina pectoris; E78.5 Hyperlipidemia, unspecified; E66.01 Morbid (severe) obesity due to excess calories; Z95.5 Presence of coronary angioplasty implant and graft; Z79.01 Long term (current) use of anticoagulants; Z79.82 Long term (current) use of aspirin; Z79.899 Other long term (current) drug therapy

== ENCOUNTER 2016-11-01 11:52 | Inpatient (IN) | payer OTHER, MEDICAID ==
[2016-11-01] MEDS ORDERED: SODIUM CHLORIDE 0.9% 1000ML 1,000 ML IVS ONE (12:04)
[2016-11-01] MEDS ORDERED: ONDANSETRON INJ 4 MG/2 ML VIAL IV ONE (12:04)
--- NOTE | 2016-11-01 12:07 | ED.PDOC ---
History of Present Illness - General Chief Complaint: GI Problem Stated Complaint: n/v Time Seen by Provider: 11/01/16 12:03 Information Source: patient, RN notes reviewed, Vital Signs reviewed, EMS Exam Limitations: no limitations - History of Present Illness Initial Comments: Patient started ~30 minutes ago with uncontrollable vomiting. She is also feeling very dizzy. Denies CRENSHAW, chest pain or abd pain. Did notice some lower extremity edema this morning. EMS gave Lazix 40mg, Zofran 4mg and Phenergan 25mg IV w/o significant improvement. Symptoms started after eating breakfast. She report that when she opens her eyes everything is swimming. Abdominal Pain Onset Location: other - No abd pain Pain Radiation: no radiation Timing/Duration: 1 hour Improving Factors: medication - Vomiting finally seems to be settling down. Worsening Factors: nothing Associated Symptoms: nausea/vomiting, other - Dizzy Review of Systems - Review of Systems Constitutional: States: no symptoms reported. Denies: chills, diaphoresis, fever, malaise, weakness EENTM: States: no symptoms reported Respiratory: States: no symptoms reported. Denies: cough, orthopnea, short of breath, stridor Cardiology: States: edema, syncope. Denies: chest pain, palpitations Gastrointestinal/Abdominal: States: nausea, vomiting. Denies: abdominal pain Genitourinary: States: no symptoms reported Musculoskeletal: States: no symptoms reported Skin: States: no symptoms reported Neurological: States: no symptoms reported. Denies: headache, numbness, paresthesia, tingling, tremors, weakness Endocrine: States: no symptoms reported Hematologic/Lymphatic: States: no symptoms reported Past Medical History (General) - Patient Medical History Hx Seizures: No Hx Stroke: No Hx Asthma: No Hx of COPD: No Hx Cardiac Disorders: Yes - recent NH,CAD Hx Congestive Heart Failure: Yes - Stents Hx Pacemaker: No Hx Hypertension: Yes Hx Diabetes: No Hx Gastroesophageal Reflux: Yes Hx MRSA: No - Vaccination History Hx Influenza Vaccination: Yes - 2017 Hx Pneumococcal Vaccination: Yes - 2017 - Social History Hx Tobacco Use: No Hx Alcohol Use: No Hx Substance Use: No Hx Physical Abuse: No Hx Emotional Abuse: No - Female History Patient : No Family Medical History - Family History Mother Family History: Unknown Living Status: Hx Family Cancer: Yes Physical Exam - Physical Exam General Appearance: Agitated, Ill Appearing, Unkempt, Well Developed, Well Nourished Eyes, Ears, Nose, Throat Exam: PERRL/EOMI, normal ENT inspection, pharynx normal Neck: non-tender, full range of motion, supple, normal inspection Respiratory: chest non-tender, lungs clear, normal breath sounds, no respiratory distress, no accessory muscle use Cardiovascular/Chest: normal peripheral pulses, regular rate, rhythm, no gallop , no JVD, no murmur, other - 2+ Pitting edema in feet/lower legs Peripheral Pulses: 2+ Gastrointestinal/Abdominal: normal bowel sounds, non tender, soft, no organomegaly, no pulsatile mass Extremity: normal range of motion, non-tender, pedal edema 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 Discussed admission to hospital. She is in agreement. Discussed with Dereje (Hospitalist) will admit patient to observation. - Results/Orders Results/Orders: Vital Signs - 24 hr 11/01/16 11/01/16 11/01/16 11:55 12:40 13:23 Temperature 97.4 F L Pulse Rate [ 81 90 70 LEFT ARM] Respiratory 16 20 16 Rate Blood Pressure 152/118 165/118 147/113 [LEFT BRACHIAL] O2 Sat by Pulse 95 96 88 L Oximetry Laboratory Tests 11/01/16 12:21 WBC 11.4 H RBC 4.01 L Hgb 11.6 L Hct 36.2 MCV 90.3 MCH 28.9 MCHC 32.1 L RDW 15.3 H Plt Count 289 MPV 8.6 Absolute Neuts (auto) 8.30 H Absolute Lymphs (auto) 1.50 Absolute Monos (auto) 1.10 H Absolute Eos (auto) 0.30 Absolute Basos (auto) 0.10 Neutrophils % 73.5 Lymphocytes % 12.8 L Monocytes % 9.8 H Eosinophils % 2.6 Basophils % 1.3 Sodium 137 Potassium 3.4 L Chloride 105 Carbon Dioxide 24 Anion Gap 11.4 L BUN 20 H Creatinine 0.98 BUN/Creatinine Ratio 20.4 H Random Glucose 134 H Serum Osmolality 278.4 Calcium 9.4 Total Bilirubin 0.6 AST 22 ALT 14 Alkaline Phosphatase 84 Creatine Kinase 32 CK-MB (CK-2) 2.2 Troponin I 0.03 B-Natriuretic Peptide 1480.0 H* Serum Total Protein 8.5 H Albumin 3.5 Globulin 5.0 H Albumin/Globulin Ratio 0.7 L Amylase 25 L Lipase 29 - EKG/XRAY/CT EKG: Atrial, Fibrillation, RBBB, nonspecific ST T wave Chg, Unchanged from - XRAY: chest - Caardiomegaly with mild interstitial edema CT Ordered: Yes - Head: no acute intracranial abnormalities. Departure - Departure Clinical Impression: Congestive heart failure Qualifiers: Congestive heart failure type: unspecified congestive heart failure type Congestive heart failure chronicity: acute on chronic Qualifier Code: (I50.9) Heart failure, unspecified Vomiting Qualifiers: Vomiting type: bilious vomiting Nausea presence: with nausea Qualifier Code: ( R11.14) Bilious vomiting Time of Disposition: 13:42 Disposition: Admit Patient Condition: Poor Departure Forms: ED Discharge - Pt. Copy, Patient Portal Self Enrollment Home Medications: Ambulatory Orders Apixaban [Eliquis] 5 mg PO BID 09/05/16 Aspirin [Aspirin Adult Low Dose] 81 mg PO DAILY 09/05/16 Atorvastatin Calcium [Lipitor] 40 mg PO BEDTIME 09/05/16 Calcium Carbonate 600 mg PO BID 09/05/16 Lisinopril 20 mg PO DAILY 09/05/16 Metoprolol Succinate [Metoprolol Succinate ER] 50 mg PO DAILY 09/05/16 Nitroglycerin 0.4 mg SL PRN 09/05/16 Furosemide [Lasix Tab] 20 mg PO DAILY #30 tab 09/08/16 Nitroglycerin Patch 0.4 mg/Hr [Nitro-Dur PATCH 0.4 mg/hour] 0.4 mg TOP QD #30 patch 09/08/16 Potassium Chloride Tab [Micro-K] 10 meq PO DAILYBK #30 tab 09/08/16 Nystatin (Topical) [Nystatin] 1 pow TOP DAILY PRN #1 pow 09/16/16 Decision To Admit - Decistion To Admit Decision to Admit Reason: Admit from ER
--- NOTE | 2016-11-01 13:27 | CT ---
Study: CT of the Head. Indication: New onset vertigo/vomiting Technique: Axial CT images of the head were acquired without intravenous contrast. Comparison: None. Findings: No CT evidence of acute ischemia, acute hemorrhage, mass, mass effect, midline shift, or extra-axial fluid collection. Ventricles are normal in configuration without hydrocephalus. Patchy hypoattenuation of the periventricular and subcortical white matter noted. This is nonspecific but most consistent with chronic microvascular ischemic change. Global parenchymal volume loss and intracranial atherosclerosis noted as well. Paranasal sinuses are adequately aerated. Mastoid air cells are adequately aerated. Osseous structures and soft tissues are unremarkable. Impression: 1. No CT evidence of acute intracranial abnormality. 2. Senescent changes. Electronically signed by: Alexander Carrillo MD 11/01/2016 1:26 PM CDT
--- NOTE | 2016-11-01 13:28 | RAD ---
Study: Single Frontal View of the Chest. Indication:CHF/edema Comparison: September 10, 2016. Impression: Cardiomegaly with minimal interstitial edema which does appear improved compared to the prior. No pleural effusion or pneumothorax. No acute osseous abnormality. Electronically signed by: Alexander Carrillo MD 11/01/2016 1:26 PM CDT
--- NOTE | 2016-11-01 14:15 | HP ---
SUPERVISING PHYSICIAN: Reynold Groves MD CHIEF COMPLAINT: Nausea and vomiting. HISTORY OF PRESENT ILLNESS: Ms. Rivera is a 70 year-old female who presented to the Emergency Room after she started having uncontrolled vomiting approximately 30 minutes prior to arrival. She noticed she had become very dizzy but denied any significant headache, chest pain or abdominal pains. EMS was notified to transport the patient to the hospital and on arrival noticed the patient had lower extremity edema which the patient said had started that morning. EMS gave the patient 40 mg of Lasix and Zofran. She also reported that her symptom onset was shortly after eating breakfast today. She also notes that when she opens her eyes, everything seems to be swimming. She was given Zofran and Phenergan without any significant improvement. Laboratory studies completed showed that she had a slightly elevated white count of 11.4 with no left shift with chemistries showing just a low potassium of 3.4. Liver function studies were within normal limits with an elevated BNP of 1480 with troponin of 0.03. It appears her pancreatic enzymes were all within normal limits. After some time in the Emergency Department, the patient's nausea had resolved but given the fact that she had a sudden onset of nausea with the elevated BNP and lower extremity edema, it was felt the patient was having some exacerbation of her congestive heart failure. She was admitted to the medical/ surgical floor for continued evaluation and treatment. Radiographic studies were completed and included a head CT and per radiology interpretation there was no noted evidence of acute intracranial abnormalities. PAST MEDICAL HISTORY: 1. Coronary artery disease. 2. Acute NV in August of 2016. 3. Hyperlipidemia. 4. Hypertension. 5. Gastroesophageal reflux disease. PAST SURGICAL HISTORY: 1. Coronary artery stent placement in 2008 and stent placement again in August 2016. CURRENT MEDICATIONS: Please see electronic medical record for an updated list of medications. ALLERGIES: NO KNOWN DRUG ALLERGIES. FAMILY HISTORY: Unremarkable. SOCIAL HISTORY: She is retired. She has 3 children. She denies any tobacco, alcohol or illicit drug use. REVIEW OF SYSTEMS: CONSTITUTIONAL: The patient denies any chills, fevers, malaise or weakness. HEENT: Denies any symptoms. RESPIRATORY: Denies cough or orthopnea. She does have some shortness of breath but this has been chronic since her acute cardiac event in August. GASTROINTESTINAL: As noted in the history of present illness, some nausea and vomiting. She denied any abdominal pain. GENITOURINARY: Denies dysuria, increased frequency. or urinary symptoms. NEUROLOGIC: Denies headaches, numbness, paresthesias, tingling, tremors or weakness. PHYSICAL EXAMINATION: VITAL SIGNS: GENERAL: The patient appears to be in no acute distress upon admission to the medical/surgical floor. She is no longer having any nausea. She appears to be well-developed, well-nourished. HEENT: Tympanic membranes clear bilaterally. Oropharynx is pink, moist without any lesions. NECK: No jugular venous distention noted. CHEST: Lungs are clear to auscultation without any rales, rhonchi or wheezing. . CARDIOVASCULAR: Regular rate and rhythm without appreciable murmurs, rubs, or gallops. GASTROINTESTINAL: Bowel sounds are present. She does have some mild tenderness to the epigastric right upper quadrant on deep palpation but no rebound tenderness. EXTREMITIES: 3+ pitting edema to bilateral lower extremities. NEUROLOGIC: Cranial nerves II through XII are grossly intact. Facial features are symmetrical. Extraocular movements are within normal limits. There is no nystagmus. There are no obvious focalizing or localizing neuromotor deficits. LABORATORY: CBC shows white count 11.4, hemoglobin 11.6, hematocrit 36.2, platelet count 299,000, differential shows to be without a left shift. Chemistries show a slightly low potassium of 3.4, BUN 20, creatinine 0.98. Glucose 134, liver function studies all within normal limits. Troponin 0.03 with a BNP elevated at 1480. Amylase and lipase show to be w normal. Urinalysis showed a dipstick that had a small amount of blood, otherwise within normal limits. MICROSCOPIC: Within normal limits. Urine culture pending. RADIOLOGY: Chest x-ray in the Emergency Department prior to admission showed cardiomegaly with minimal interstitial edema which did appear to be improved when compared to previous exams. There is no pleural effusion, no pneumothorax noted. CT of the head per radiology interpretation showed no acute intracranial abnormalities. Abdomen and pelvic CT with contrast after admission to the medical/surgical floor per radiology interpretation shows cholelithiasis with peristalsis compatible with acute cholecystitis. 12-lead EKG showed atrial fibrillation with a right bundle branch block with nonspecific ST-wave changes. ASSESSMENT: 1. Acute onset of nausea and vomiting after eating breakfast with some notable dizziness resolving with Phenergan and Zofran. 2. Acute cholecystitis as noted on CT scan with the patient having acute onset of nausea and vomiting but minimal abdominal pains. 3. Acute exacerbation of congestive heart failure likely diastolic, unknown etiology, no current ehrlichiosis available for viewing with elevated BNP on admission with significant lower extremity edema. 4. Leukocytosis possibly secondary to acute onset of nausea and vomiting and presence of acute cholecystitis. 5. Mild electrolyte imbalance. 6. Hyponatremia possibly secondary to nausea and vomiting. 7. History of myocardial infarction with stent placement in August of 2016. 8. History of coronary artery disease with multiple stent placements. 9. Hyperlipidemia. 10. Gastroesophageal reflux disease. 11. Hypertension. PLAN: The patient will be admitted to the medical/surgical floor for continued treatment and evaluation with concerns for both acute cholecystitis and acute exacerbation of congestive heart failure. She was given Lasix prior to admission in the Emergency Department. Will continue this with Lasix daily. Will replace her potassium with IV fluids slowly and watch her closely. Plan to get a consultation with Dr. Herbert in the morning in regards to further assessment of the underlying cholecystitis. I plan to get a Doppler lower extremity bilaterally to further rule out any underlying DVTs, however, the patient is on anticoagulant therapy to include Eliquis and denies any chest pain or significant shortness of breath. Plan to repeat laboratory studies to include serial cardiac enzymes to further rule out any concerns for underlying acute myocardial infarctions. History of atrial fibrillation with a right bundle branch block unchanged from EKG noted on August 2016. I will anticipate length of stay to be 2 to 3 days. Will also plan details on Friday as currently the modality is not available on the weekends at [facility]. We will await further consultation with Dr. Herbert and reevaluate clinically and patient clinically improved can be discharged, will monitory closely and treat appropriately. #[id number] [facility]
[2016-11-01] MEDS ORDERED: NITROGLYCERIN 0.4 MG 25 EA TAB SL PRN (15:58)
[2016-11-01] MEDS: IV SET AND CAP CHANGE INJ INJ SCH (16:16)
[2016-11-01] MEDS ORDERED: cefTRIAXone SODIUM 1 GM VIAL ONE (16:23)
[2016-11-01] MEDS ORDERED: SODIUM CHL 0.9% 50ML MIN-BAG+ 50 ML IVPB ONE (16:23)
[2016-11-01] MEDS: cefTRIAXone SODIUM 1 GM in SODIUM CHL 0.9% 50ML MIN-BAG+ 50 ML IVPB SCH (16:48)
--- NOTE | 2016-11-01 17:14 | CT ---
EXAM DESCRIPTION: Abdomen/Pelvis w/Contrast CLINICAL HISTORY: N/V ruq pain COMPARISON: None Available TECHNIQUE: Contiguous axial images of the abdomen and pelvis were obtained after the administration of intravenous contrast followed by reconstruction images. FINDINGS: Linear opacities within the lungs may represent scar versus subsegmental atelectasis. There is cardiomegaly. There are multiple gallstones within the gallbladder. There is small amount of pericholecystic fluid. Correlation with a sonogram is recommended for further evaluation. There is atherosclerosis. Calcifications within the pelvis compatible with phleboliths. There is no discrete pelvic mass. The liver, spleen, pancreas and kidneys are within normal limits. There is no hydronephrosis or renal stones. Adrenal glands are within normal limits. Aorta is of normal caliber and tapering. There is no free fluid in the abdomen or pelvis. There is no bowel obstruction. The appendix is within normal limits. There is no pericecal inflammation. IMPRESSION: Cholelithiasis and pericholecystic fluid compatible with acute cholecystitis. If indicated, correlation with a sonogram could be helpful. Electronically signed by: Sherman Lazo MD 11/01/2016 5:12 PM CDT
[2016-11-01] MEDS ORDERED: APIXABAN 2.5 MG TAB PO ONE (19:43)
[2016-11-01] MEDS ORDERED: CALCIUM CARBONATE (ANTACID) 500 MG CHEWABLE TAB PO ONE (19:45)
[2016-11-01] MEDS ORDERED: NON-FORMULARY MEDICATION 1 EA MIS (Apixaban [Eliquis] 5 MG) PO SCH (21:00)
[2016-11-01] MEDS ORDERED: CALCIUM CARBONATE 600 MG PO SCH (21:00)
[2016-11-01] MEDS: SODIUM CHLORIDE 0.9% (FLUSH) 10 ML SYG IV SCH (21:02)
[2016-11-01] MEDS: CALCIUM CARBONATE (ANTACID) 500 MG CHEWABLE TAB PO SCH (21:02)
--- NOTE | 2016-11-02 06:37 | RAD ---
EXAM: Two view chest. INDICATION: Chest pain. COMPARISON: Chest x-ray: 11/01/2016. FINDINGS: Cardiac silhouette: Enlarged Sofía: Unremarkable. Lobar consolidation: None. Pleural effusion: None. Pneumothorax: None. Other: None. Bones: Unremarkable. Other: None. IMPRESSION: 1. No acute cardiopulmonary process. Electronically signed by: Keagan Wong MD 11/02/2016 6:35 AM CDT
[2016-11-02] MEDS ORDERED: APIXABAN 2.5 MG TAB PO ONE (07:36)
[2016-11-02] MEDS ORDERED: LISINOPRIL 10 MG TAB ONE (07:36)
[2016-11-02] MEDS ORDERED: cefTRIAXone SODIUM 1 GM VIAL ONE (07:37)
[2016-11-02] MEDS ORDERED: SODIUM CHL 0.9% 50ML MIN-BAG+ 50 ML IVPB ONE (07:37)
[2016-11-02] MEDS: POTASSIUM CHLORIDE 10 MEQ TAB PO SCH (07:49)
[2016-11-02] MEDS: CALCIUM CARBONATE (ANTACID) 500 MG CHEWABLE TAB PO SCH (09:20)
[2016-11-02] MEDS: METOPROLOL SUCCINATE XL 50 MG TAB PO SCH (09:21)
[2016-11-02] MEDS: APIXABAN 2.5 MG TAB PO SCH ×2 (09:21→20:38)
[2016-11-02] MEDS: ASPIRIN EC 81 MG TAB PO SCH (09:21)
[2016-11-02] MEDS: LISINOPRIL 10 MG TAB PO SCH (09:22)
[2016-11-02] MEDS: NITROGLYCERIN 0.4 MG/HR PATCH TOP SCH ×2 (09:23)
[2016-11-02] MEDS: FUROSEMIDE INJ 40 MG/4 ML VIAL IV SCH (09:32)
[2016-11-02] MEDS: SODIUM CHLORIDE 0.9% (FLUSH) 10 ML SYG IV SCH ×2 (09:32→20:39)
[2016-11-02] MEDS ORDERED: metroNIDAZOLE IV PREMIX 500MG 100 ML IVPB ONE ×3 (11:09→18:43)
[2016-11-02] MEDS: metroNIDAZOLE IV PREMIX 500MG 500 MG in PREMIX BAG 1 BAG IVPB SCH ×2 (11:18→18:37)
[2016-11-02] MEDS ORDERED: POTASSIUM CHLORIDE 20 MEQ TAB ONE (11:38)
[2016-11-02] MEDS: MAGNESIUM HYDROXIDE 30 ML UD PO PRN (14:01)
[2016-11-02] MEDS: ACETAMINOPHEN 325 MG TAB PO PRN ×2 (14:01→20:19)
--- NOTE | 2016-11-02 15:04 | PN ---
DATE: 11/02/16 SUPERVISING PHYSICIAN: Reynold Groves M.D. SUBJECTIVE: The patient is doing much better this morning. She is actually working with Physical Therapy and ambulating through the hallways with only the assistance of a walker. She did note that she started having some blood in the urine and has done so in the past. She is on Eliquis and has noted that she has an underlying urinary tract infection. She remains afebrile. Has had no recurrence of her nausea or vomiting, or any significant abdominal pains through the night. OBJECTIVE: VITAL SIGNS: T max 98.5, pulse 96, blood pressure 160/86, respirations 18, O2 sat 96% on room air. Weight is 120.7 kg. I's and O's show a negative balance of 110 with 1490 in, 1600 out. GENERAL: The patient is doing well. She is actually ambulating and appears to be in no acute distress. CHEST: Lungs remain clear to auscultation bilaterally but diminished towards the bases. HEART: Slightly irregular rate and rhythm with no appreciable murmurs, gallops, or rubs. ABDOMEN: Obese but soft, non-tender. Positive bowel sounds. EXTREMITIES: Continues to be edema to bilateral lower extremities although improved from admission, it is now 2+. NEUROLOGIC: She is alert and oriented times three. LABORATORY: White count has now normalized at 10.5, hemoglobin 11.3, hematocrit 34.2, platelet count 244,000. Differential shows to be within normal limits. Chemistries show continued low sodium at 3.4, BUN 20, creatinine 0.97, glucose 106. Liver functions continue to show within normal limits. Second troponin was 0.03. MICROBIOLOGY: Preliminary culture on urine shows gram-negative rods. RADIOLOGY: Repeat chest x-ray today per radiology interpretation of two view chest shows no acute cardiopulmonary processes. ASSESSMENT: 1. Acute onset of nausea and vomiting shortly after eating breakfast with some notable dizziness having resolved with Phenergan and Zofran possibly secondary to previous ear infection versus cholecystitis. 2. Acute cholecystitis as noted on CT scan with the patient having an acute onset of nausea and vomiting with minimal abdominal pain, resolving upon admission to the hospital. 3. Acute exacerbation of congestive heart failure likely diastolic, unknown etiology though without a current echocardiogram available for review with elevated BNP on admission with significant lower extremity edema. 4. Leukocytosis possibly secondary to acute onset of nausea and vomiting and underlying acute cholecystitis, improved after starting IV therapy. 5. Mild electrolyte imbalance, hypokalemia, persistent. 6. Hyponatremia possibly secondary to nausea and vomiting, improved after IV therapy. 7. History of myocardial infarction with stent placement 08/2016. 8. History of coronary artery disease with multiple stent placements. 9. Hyperlipidemia. 10. Gastroesophageal reflux disease. 11. Hypertension. PLAN: The patient will continue on current plan of care. I did start her on Rocephin. Will plan to add Flagyl to her medication regimen with these findings of acute cholecystitis after consulting with Dr. Herbert. Dr. Herbert will see the patient in the morning in consultation in regards to the cholecystitis. The patient does remain asymptomatic in regards to the findings correlating the CT. Will order an ultrasound to be done on Friday as those services are not available over the weekend. I will also await a Doppler study of the lower extremities to further rule out any underlying problems related to possible deep venous thrombosis with the patient having some chest pains and shortness of breath on admission. The patient does remain on Eliquis for her atrial fibrillation and notes that she has not missed any dosing. Will anticipate discharge possibly Friday and plan to reevaluate in the morning clinically as well as repeat laboratory studies and await Dr. Herbert's consultation. Until then , will continue to monitor the patient closely and treat appropriately. #[id number] [facility]
[2016-11-02] MEDS: cefTRIAXone SODIUM 1 GM in SODIUM CHL 0.9% 50ML MIN-BAG+ 50 ML IVPB SCH (16:17)
[2016-11-02] MEDS: POTASSIUM CHLORIDE 20 MEQ TAB PO SCH (16:27)
[2016-11-02] MEDS: REMOVE OLD PATCH TOP SCH (20:40)
--- NOTE | 2016-11-02 22:39 | PCM.CORE ---
Physician DVT/VTE - Prophylaxis Currently: Patient already on anticoagulation therapy - mckinley - Nurse DVT Assessment & Total Each Risk Factor Represents 3 Points: Medical PT with Hx of RI, CHF, Severe infection/sepsis Each Risk Factor Represents 2 Points: Age 60-74 Each Risk Factor Represents 1 Point: Medical PT at Bed Rest Each Risk Factor is 1 Point: Varicose Veins/Edema Legs, Obesity (BMI >25) DVT Assessment Score: 8 - 5 or more Very High Risk Treatments: Early Ambulation *, Sequential Compression Device
[2016-11-03] MEDS: SODIUM CHLORIDE 0.9% (FLUSH) 10 ML SYG IV PRN (03:16)
[2016-11-03] MEDS: metroNIDAZOLE IV PREMIX 500MG 500 MG in PREMIX BAG 1 BAG IVPB SCH ×3 (03:17→20:33)
[2016-11-03] MEDS: POTASSIUM CHLORIDE 20 MEQ TAB PO SCH ×2 (08:06→16:21)
[2016-11-03] MEDS: ASPIRIN EC 81 MG TAB PO SCH (08:06)
[2016-11-03] MEDS: LISINOPRIL 10 MG TAB PO SCH (08:06)
[2016-11-03] MEDS: CALCIUM CARBONATE (ANTACID) 500 MG CHEWABLE TAB PO PRN ×2 (08:07→08:15)
[2016-11-03] MEDS: NITROGLYCERIN 0.4 MG/HR PATCH TOP SCH ×2 (08:07→23:09)
[2016-11-03] MEDS: METOPROLOL SUCCINATE XL 50 MG TAB PO SCH (08:07)
[2016-11-03] MEDS: APIXABAN 2.5 MG TAB PO SCH ×2 (08:12→20:33)
[2016-11-03] MEDS: FUROSEMIDE INJ 40 MG/4 ML VIAL IV SCH (09:45)
[2016-11-03] MEDS: POTASSIUM CHLORIDE 10 MEQ TAB PO SCH (09:51)
[2016-11-03] MEDS: SODIUM CHLORIDE 0.9% (FLUSH) 10 ML SYG IV SCH ×2 (09:54→20:33)
--- NOTE | 2016-11-03 11:27 | CONS ---
DATE OF CONSULTATION: 11/03/16 REFERRING PHYSICIAN: Reynold Groves M.D. HISTORY OF PRESENT ILLNESS: The patient is a 70 year-old female who I have previously seen for her gallbladder, who was admitted through the Emergency Room for nausea and vomiting, feeling of light-headedness. She has a history of congestive heart failure, hypertension, coronary artery disease and myocardial infarction. She was found to have edema in the lower extremities. She was admitted and made NPO. She was also found to have a urinary tract infection so she was admitted, made NPO and started on IV antibiotics. I have been asked to help with her treatment plan. PAST MEDICAL HISTORY: 1. Coronary artery disease. 2. Myocardial infarction in August of this year. 3. Hyperlipidemia. 4. Hypertension. 5. Gastroesophageal reflux disease. PAST SURGICAL HISTORY: 1. Coronary artery stent placement both in 2008 and 2016. CURRENT MEDICATIONS: List further on the record. ALLERGIES: NO KNOWN DRUG ALLERGIES. FAMILY HISTORY: Noncontributory. SOCIAL HISTORY: She is retired. Mother of three. Has no history of tobacco or alcohol use. REVIEW OF SYSTEMS: There has been no weight loss. No history of dark urine, light stools, hematemesis, hematochezia or melena. PHYSICAL EXAMINATION: GENERAL: The patient is awake, alert and in no acute distress currently. HEENT: Mucous membranes are moist. NECK: Without adenopathy. BACK: Will CVA tenderness. CHEST: She has equal breath sounds bilaterally. ABDOMEN: Monilia under her breasts. There are no scars in the upper abdomen. The abdomen is non-tender. PELVIC AND RECTAL: Examinations are deferred. EXTREMITIES: Pitting edema to the lower extremities. LABORATORY: White blood cell count 8.4 this morning, hemoglobin 10.8, platelet count 240. She has 66% neutrophils. Chemistries: Liver function tests have been normal times 2. Lipase and amylase are within normal limits. BNP on admission was 1480. Potassium 3.7, creatinine 1.06. Urine culture is positive for Escherichia coli that is essentially sensitive to everything. CT scan on admission revealed inflammation with a small amount of pericholecystic fluid and thickening of the gallbladder wall along with stones. IMPRESSION: 1. Cholelithiasis. 2. Nausea and vomiting which has resolved with normal liver functions and normal pancreatic enzymes. 3. Congestive heart failure on admission based on the edema history and elevated BNP. It is possible that the wall thickening and even pericholecystic fluid is secondary to congestive heart failure and the fact that she is non-tender and has no complaint of pain. PLAN: The plan will be to continue antibiotic therapy both for the urinary tract infection and to cover the gallbladder at the same time. Try to attempt to resolve her heart issues and then have her evaluated for the possibility of or recommendation of cholecystectomy, and whether or not this would need to be done at a facility with ICU care, cardiology, pulmonology, critical care on staff. Will follow the patient with you. #[id number] [facility]
[2016-11-03] MEDS ORDERED: metroNIDAZOLE IV PREMIX 500MG 100 ML IVPB ONE ×2 (11:38→20:25)
[2016-11-03] MEDS: ACETAMINOPHEN 325 MG TAB PO PRN ×2 (15:01→23:09)
[2016-11-03] MEDS: MAGNESIUM HYDROXIDE 30 ML UD PO PRN (15:58)
[2016-11-03] MEDS ORDERED: SODIUM CHL 0.9% 50ML MIN-BAG+ 50 ML IVPB ONE (16:10)
[2016-11-03] MEDS ORDERED: cefTRIAXone SODIUM 1 GM VIAL ONE (16:10)
[2016-11-03] MEDS: cefTRIAXone SODIUM 1 GM in SODIUM CHL 0.9% 50ML MIN-BAG+ 50 ML IVPB SCH (16:20)
--- NOTE | 2016-11-03 18:38 | PN ---
DATE: 11/03/16 SUPERVISING PHYSICIAN: Reynold Groves M.D. SUBJECTIVE: The patient is sitting in the bedside chair. She is encouraged when sitting in a chair to keep her legs elevated to prevent any worsening of her edema. She has had good results with her diuresis of well over 4 liters of fluid since admission. She says her shortness of breath has improved. She seems to have some blood in her urine but notes that her symptoms are improving as well. She denies any abdominal pain, nausea or vomiting in the last 24 hours. OBJECTIVE: VITAL SIGNS: Temperature 97.4, pulse 65, blood pressure 156/77, respirations 20, O2 sat 98% on room air. I's and O's show a negative balance of 1070 with 2330 in, 3400 out. She has had positive bowel movements. Weight is 121.0 kg. CHEST: Clear to auscultation, slightly diminished towards the bases. HEART: Slightly irregular rate and rhythm with no murmurs or gallops noted. ABDOMEN: Obese but soft, non-tender. Positive bowel sounds. EXTREMITIES: Continue to show 2+ edema. NEUROLOGIC: She is alert and oriented times three. LABORATORY: White count continues to normalize at 8.4, hemoglobin and hematocrit are stable at 10.8 and 34.0, platelet count 240,000. Differential is without a left shift. Chemistries show normal electrolytes with potassium 3.7 today, BUN 23, creatinine 1.0, glucose 122, calcium 8.8. MICROBIOLOGY: Final culture on urine shows Escherichia coli that is pansensitive with the patient currently being on Rocephin and Flagyl. RADIOLOGY: Additional radiographic studies are available for review. ASSESSMENT: 1. Cholelithiasis followed currently by Dr. Herbert consultation with nausea and vomiting on admission having resolved with normal liver functions and normal pancreatic enzymes. 2. Acute exacerbation of congestive heart failure likely diastolic, unknown etiology though without a current echocardiogram available for review with elevated BNP on admission and significant lower extremity edema showing improvement with loop diuretics. 3. Leukocytosis likely secondary to the previous onset of acute nausea and vomiting with some underlying acute cholecystitis, improved after IV therapy. 4. Mild electrolyte imbalance to include hypokalemia resolved after IV therapy and replacement. 5. Hyponatremia possibly secondary to nausea and vomiting, resolved after IV therapy. 6. History of myocardial infarction with last stents being placement 08/2016. 7. History of coronary artery disease with multiple stent placements. 8. Hyperlipidemia. 9. Gastroesophageal reflux disease. 10. Hypertension. PLAN: Dr. Herbert has seen the patient in consultation and will continue to follow the patient medically. Will continue with current plan of care to cover antibiotic coverage with Rocephin and Flagyl, both in regards to cholecystitis and underlying urinary tract infection with culture results showing Escherichia coli that was pansensitive. Will continue with Lasix in efforts to continue to establish a true dry weight. Will plan to get a complete ultrasound study of the lower extremities tomorrow to further rule out any underlying DVT, although the patient remains on Eliquis. Her urine is showing some improvement. Will go ahead and get occult blood to further rule out any stool occult blood given the patient is on Eliquis and has had some blood in urine/stool mix. Will await final decision in regards to further plans on treating cholecystitis with the assistance of Dr. Herbert. Should she proceed to surgery, I certainly wanted to consider removal of Eliquis for at least 2 days, but again will wait and discuss this matter with Dr. Herbert tomorrow. Until discharge, will continue to monitor the patient closely and treat appropriately. #[id number] [facility]
[2016-11-03] MEDS: REMOVE OLD PATCH TOP SCH (21:30)
[2016-11-04] MEDS: MAGNESIUM HYDROXIDE 30 ML UD PO PRN (02:15)
[2016-11-04] MEDS ORDERED: SODIUM CHLORIDE 0.9% 10 ML VIAL ONE (03:23)
[2016-11-04] MEDS ORDERED: metroNIDAZOLE IV PREMIX 500MG 100 ML IVPB ONE ×3 (03:24→19:25)
[2016-11-04] MEDS: SODIUM CHLORIDE 0.9% (FLUSH) 10 ML SYG IV PRN (03:48)
[2016-11-04] MEDS: ALPRAZolam 0.25 MG TAB PO PRN ×2 (03:48→10:54)
[2016-11-04] MEDS: MORPHINE SULFATE INJ 10 MG/ML VIAL IV PRN ×2 (03:49→16:18)
[2016-11-04] MEDS: metroNIDAZOLE IV PREMIX 500MG 500 MG in PREMIX BAG 1 BAG IVPB SCH ×3 (03:49→19:29)
--- NOTE | 2016-11-04 04:08 | CT ---
EXAM: CT abdomen and pelvis with contrast. INDICATION: Abdominal pain, acute. TECHNIQUE: Contiguous axial CT images of the abdomen and pelvis. Intravenous contrast: Present. Oral contrast: Absent. DLP 835 mGy-cm. COMPARISON: 11/01/2016. FINDINGS: Lower chest: Partially imaged. Lung bases: Unremarkable. Cardiac apex: Unremarkable. Solid abdominal viscera: Liver: Unremarkable. Gallbladder: Cholelithiasis Pancreas: Unremarkable. Spleen: Unremarkable. Adrenal glands: Unremarkable. Right kidney: No hydronephrosis. Left kidney: No hydronephrosis. Urinary bladder: Unremarkable. Abdominal aorta: Unremarkable. Peritoneal: Free fluid: None. Free air: None. Other: No pathologic sized lymph nodes in the upper abdomen. Bowel: Stomach: Unremarkable. Small bowel: Unremarkable. Appendix: Unremarkable. Colon: Unremarkable. Rectum: Unremarkable. Uterus: There is marked distention of the endometrial cavity, significantly increased in size compared to the prior which now measures 4.8 cm in diameter. Bones: Unremarkable. IMPRESSION: Marked distention of the endometrial cavity, increased from the prior. This may be due to an obstruction at the cervix. Further evaluation with direct visualization and tissue sampling may be useful. Cholelithiasis. Electronically signed by: Keagan Wong MD 11/04/2016 4:07 AM CDT
[2016-11-04] MEDS: POTASSIUM CHLORIDE 20 MEQ TAB PO SCH ×2 (08:01→16:43)
[2016-11-04] MEDS: NITROGLYCERIN 0.4 MG/HR PATCH TOP SCH (10:00)
[2016-11-04] MEDS: FUROSEMIDE INJ 40 MG/4 ML VIAL IV SCH (10:00)
[2016-11-04] MEDS: APIXABAN 2.5 MG TAB PO SCH ×2 (10:01→20:40)
[2016-11-04] MEDS: ASPIRIN EC 81 MG TAB PO SCH (10:01)
[2016-11-04] MEDS: LISINOPRIL 10 MG TAB PO SCH (10:01)
[2016-11-04] MEDS: METOPROLOL SUCCINATE XL 50 MG TAB PO SCH (10:01)
[2016-11-04] MEDS: SODIUM CHLORIDE 0.9% (FLUSH) 10 ML SYG IV SCH ×2 (10:02→20:40)
[2016-11-04] MEDS: CALCIUM CARBONATE (ANTACID) 500 MG CHEWABLE TAB PO PRN (10:54)
--- NOTE | 2016-11-04 12:46 | US ---
EXAM DESCRIPTION: Venous,Lower Extremity LT CLINICAL HISTORY: Left lower leg edema COMPARISON: None Available. TECHNIQUE: Left lower extremity venous grayscale, spectral, and color Doppler sonographic images. FINDINGS: There is no DVT identified. There is normal color flow observed with good flow augmentation. All deep veins compress normally. There is soft tissue edema in the left calf. IMPRESSION: Negative for DVT Electronically signed by: Varun Alamo MD 11/04/2016 12:45 PM CDT
--- NOTE | 2016-11-04 12:48 | US ---
EXAM DESCRIPTION: Venous,Lower Extremity RT CLINICAL HISTORY: right lower leg edema COMPARISON: None Available. TECHNIQUE: Right lower extremity venous grayscale, spectral, and color Doppler sonographic images. FINDINGS: There is no DVT identified. There is normal color flow observed with good flow augmentation. All deep veins compress normally. There is soft tissue edema in the right calf. IMPRESSION: Negative for DVT Electronically signed by: Varun Alamo MD 11/04/2016 12:47 PM CDT
[2016-11-04] MEDS ORDERED: SODIUM CHL 0.9% 50ML MIN-BAG+ 50 ML IVPB ONE (13:44)
[2016-11-04] MEDS ORDERED: cefTRIAXone SODIUM 1 GM VIAL ONE (13:45)
[2016-11-04] MEDS: ONDANSETRON INJ 4 MG/2 ML VIAL IV PRN (13:51)
--- NOTE | 2016-11-04 15:45 | US ---
Study: Pelvic ultrasound. Indication:uterine enlargement Technique: Multiplanar grayscale sonographic images of the pelvis obtained transabdominally as well as endovaginally Comparison: CT pelvis, same day Findings: Uterus measures 12.0 cm in length. Endometrium measures up to 2.5 cm. It is hyperechoic and abnormally thickened. Myometrium unremarkable. Ovaries not visualized. No free pelvic fluid. Impression: Abnormally thickened endometrium concerning for endometrial carcinoma, endometrial hyperplasia or polyp. Endometrial biopsy recommended. Nonvisualization ovaries due to atrophy or shadowing bowel gas. Electronically signed by: Alexander Carrillo MD 11/04/2016 3:44 PM CDT
[2016-11-04] MEDS: IV SET AND CAP CHANGE INJ INJ SCH (16:17)
[2016-11-04] MEDS: cefTRIAXone SODIUM 1 GM in SODIUM CHL 0.9% 50ML MIN-BAG+ 50 ML IVPB SCH (16:21)
--- NOTE | 2016-11-04 18:44 | PN ---
DATE: 11/04/16 SUBJECTIVE: The patient had significant lower left sided abdominal discomfort about 3:00 in the morning earlier today. CT scan was performed with IV contrast. It showed significant enlargement of the endometrial cavity and thickened ybarra of the uterine muscle itself with further investigation and followup with [facility] encouraged. She is still having some difficulty with her breathing but it shows improvement compared to a couple of days ago. Appetite has decreased. She has had some recurring nausea and vomiting as well during the day, and with her history of gallstones noted, this also may be contributing to some of her symptoms. OBJECTIVE: Afebrile, blood pressure was 167/87, pulse oximetry 96% on room air. Weight 118 kilos. Intake and output shows significant output with the help of diuresis but also significant p.o. intake as well with institution of fluid restrictions initiated. LUNGS: Have some diminished breath sounds but appear to be dry cleaner. HEART: Tones are somewhat distant. ABDOMEN: Obese and somewhat tender especially in the mid portion and down towards the left lower quadrant and pelvis. No organomegaly evident. Bowel tones are present though somewhat decreased. CT scan performed earlier today did reveal significant thickening of the uterine wall as well as marked distention of the endometrial cavity increasing from about 2 days ago. Diameter has increased up to 4.8 cm. Again noted the large stones in the gallbladder. Chest x-ray of 2 days ago showed improvement in the vascular congestion. ASSESSMENT: 1. Chronic cholelithiasis with an acute exacerbation being followed with Dr. Herbert in consultation currently on a low fat diet with fairly normal liver functions and pancreatic enzymes. 2. Chronic congestive heart failure with an acute exacerbation possibly diastolic in etiology with no recent echocardiogram available with lower extremity edema showing improvement with diuresis. Elevated BNP noted. 3. Leukocytosis possibly related to underlying abdominal pathology. 4. Mild electrolyte imbalance with hypokalemia improving with supplementation. 5. Hyponatremia. 6. History of myocardial infarction with stents placed in August of 2016. 7. History of hyperlipidemia. 8. History of gastroesophageal reflux disease. 9. History of hypertension with has prevented intervention in years past on the gallbladder. 10. Acute abdominal pain left lower quadrant and into the pelvis with abnormal dilatation of the uterine endometrial cavity and thickening of the uterine wall suggesting the possibility of a neoplastic process requiring further [facility] [facility] evaluation. 11. Acute urinary tract infection with Escherichia coli. PLAN: Dr. Herbert is going to be discussing the case with Dr. Geronimo. We are looking forward to an eventual endometrial biopsy and Dr. Geronimo's advice as to the unique pathology presenting in the uterus. If gallbladder surgery is to be performed at this time it is felt that she would best be managed in a facility where ICU capability and cardiac support is present. Reevaluate in the morning. Continue with clear liquids and final decision is necessary. The patient is placed on fluid restrictions to assist with the pulmonary edema state. Close followup necessary. DVT exam of both lower extremities revealed no DVTs. #[id number] [facility]
[2016-11-04] MEDS: KCL 20MEQ/D5 1/2NS 1,000 ML IVS PRN (19:28)
[2016-11-04] MEDS: REMOVE OLD PATCH TOP SCH (20:40)
[2016-11-05] MEDS: MAGNESIUM HYDROXIDE 30 ML UD PO PRN ×2 (00:07→20:54)
[2016-11-05] MEDS ORDERED: metroNIDAZOLE IV PREMIX 500MG 100 ML IVPB ONE ×3 (02:55→19:33)
[2016-11-05] MEDS: metroNIDAZOLE IV PREMIX 500MG 500 MG in PREMIX BAG 1 BAG IVPB SCH ×3 (03:08→19:40)
[2016-11-05] MEDS: ONDANSETRON INJ 4 MG/2 ML VIAL IV PRN ×2 (03:43→07:44)
[2016-11-05] MEDS: ALPRAZolam 0.25 MG TAB PO PRN ×2 (03:45→07:45)
[2016-11-05] MEDS: POTASSIUM CHLORIDE 20 MEQ TAB PO SCH ×2 (09:17→15:36)
[2016-11-05] MEDS: METOPROLOL SUCCINATE XL 50 MG TAB PO SCH (09:17)
[2016-11-05] MEDS: FUROSEMIDE INJ 40 MG/4 ML VIAL IV SCH (09:17)
[2016-11-05] MEDS: ASPIRIN EC 81 MG TAB PO SCH (09:17)
[2016-11-05] MEDS: NITROGLYCERIN 0.4 MG/HR PATCH TOP SCH (09:17)
[2016-11-05] MEDS: LISINOPRIL 10 MG TAB PO SCH (09:18)
[2016-11-05] MEDS: SODIUM CHLORIDE 0.9% (FLUSH) 10 ML SYG IV SCH ×2 (09:24→21:00)
--- NOTE | 2016-11-05 11:31 | RAD ---
EXAM DESCRIPTION: Abdomen Flat Upright CLINICAL HISTORY: abd pain with N V, fecal stasis? COMPARISON: None Available. TECHNIQUE: AP supine and upright views the abdomen FINDINGS: Numerous phleboliths are observed in the pelvis. The bowel gas pattern is unremarkable. No organomegaly is detected. Degenerative changes are observed in the lumbar spine. IMPRESSION: Unremarkable abdomen. Electronically signed by: Beau Peguero MD 11/05/2016 11:30 AM CDT
--- NOTE | 2016-11-05 13:57 | PN ---
DATE: 11/05/16 SUBJECTIVE: The patient have some nausea without emesis earlier today. Less abdominal pain noted today compared to yesterday morning. She is able to walk to the bathroom a little better today. Less shortness of breath, though still present. She has blood in her urine when it is collected in the at. Whether it is coming from the large uterus apparently filled with blood or from the bladder is to be determined. She is still on clear liquids, which is to be advanced. OBJECTIVE: VITAL SIGNS: Afebrile. Pulse 76. Blood pressure 126/60. Pulse oximetry 93% on room air. Weight is down to 116.3 kg. Output has been down a little bit. Whether this is missing some is to be determined. The weight is also down. LUNGS: Generally clear with diminished breath sounds. HEART: Tones are regular. ABDOMEN: Obese. Still with some tenderness in the lower aspects of the abdomen , but no organomegaly evident. Bowel tones are slightly decreased. No significant pain in the right upper quadrant upon palpation. LABORATORY: White count is up 15,900 with 88% neutrophils, hemoglobin down to 11.3. Chemistries show potassium up to 4, creatinine 1.04, glucose 182. Liver enzymes normal. Albumin 3.3. TSH elevated at 5.6. Will repeat a urine with an in and out straight cath to evaluate for hematuria. Stool Hemoccult was negative on one test. Urine culture did show E. coli with lang sensitivity. ASSESSMENT: 1. Chronic cholelithiasis with possible acute exacerbation with associated nausea and vomiting, being followed with Dr. Herbert in consultation and currently being advanced from clear liquids to a low fat diet with normal liver functions and pancreatic enzymes, yet with large stones. 2. Chronic congestive heart failure with an acute exacerbation, possibly diastolic in etiology, yet no recent echocardiogram available. The patient presents with significant lower extremity edema, improved with diuresis with an elevated BNP noted. 3. Leukocytosis, showing persistence. 4. Hypokalemia, improved with supplementation. 5. Hyponatremia, improved. 6. History of myocardial infarction with stents placed in August of 2016. 7. History of hyperlipidemia. 8. History of gastroesophageal reflux disease. 9. History of hypertension which has prevented surgical intervention in years past for the gallbladder disease. 10. Acute abdominal pain, left and right lower quadrants. 11. Abnormal uterus with dilation significantly noted of the endometrial cavity as well as thickening of the uterine wall, suggesting the possibility of a neoplastic process, requiring gynecological evaluation and endometrial biopsies. Discussed with Dr. Geronimo. 11. Acute urinary tract infection with Escherichia coli, treated with Rocephin. PLAN: Dr. Herbert has seen the patient in consultation again today. I discussed the case with Dr. Geronimo, who wishes an outpatient followup in the clinic for an endometrial biopsy after discharge. We will reevaluate CBC and laboratory studies in the morning. Consider gallbladder ultrasound in the morning since one has not been done on record. Further evaluation to continue with Dr. Braswell to see the patient at an appointment on 11/12/16. Continue with diuresis. Elevated TSH is noted and the patient will be started on Synthroid 50 mcg per day. Schedule for outpatient hepatobiliary scan with cholecystokinin on with x-ray to acquire the radionucleotide for that study as an outpatient with outpatient requisition given to the x-ray department. Reevaluate in the morning and consider discharge home on a low fat diet with close followup with surgery. If surgery on the gallbladder or the uterus is anticipated, suggest facility with ICU with cardiac intervention and support available. #[id number] [facility]
[2016-11-05] MEDS: KCL 20MEQ/D5 1/2NS 1,000 ML IVS PRN (14:37)
[2016-11-05] MEDS ORDERED: SODIUM CHL 0.9% 50ML MIN-BAG+ 50 ML IVPB ONE (15:30)
[2016-11-05] MEDS ORDERED: cefTRIAXone SODIUM 1 GM VIAL ONE (15:31)
[2016-11-05] MEDS: LEVOTHYROXINE SODIUM 0.025 MG TAB PO SCH (15:36)
[2016-11-05] MEDS: ACETAMINOPHEN 325 MG TAB PO PRN (15:36)
[2016-11-05] MEDS: cefTRIAXone SODIUM 1 GM in SODIUM CHL 0.9% 50ML MIN-BAG+ 50 ML IVPB SCH (15:37)
[2016-11-05] MEDS: APIXABAN 2.5 MG TAB PO SCH (20:54)
[2016-11-05] MEDS: REMOVE OLD PATCH TOP SCH (21:00)
[2016-11-05] MEDS: CALCIUM CARBONATE (ANTACID) 500 MG CHEWABLE TAB PO PRN (21:59)
[2016-11-06] MEDS ORDERED: metroNIDAZOLE IV PREMIX 500MG 0 ML IVPB ONE (02:44)
[2016-11-06] MEDS: metroNIDAZOLE IV PREMIX 500MG 500 MG in PREMIX BAG 1 BAG IVPB SCH ×2 (02:47→12:14)
[2016-11-06] MEDS: LEVOTHYROXINE SODIUM 0.025 MG TAB PO SCH (05:59)
[2016-11-06 06:25] VITALS: O2SAT 97
[2016-11-06] MEDS ORDERED: SODIUM CHL 0.9% 50ML MIN-BAG+ 0 ML IVPB ONE (07:08)
[2016-11-06] MEDS ORDERED: cefTRIAXone SODIUM 1 GM VIAL ONE (07:09)
[2016-11-06] MEDS ORDERED: metroNIDAZOLE IV PREMIX 500MG 100 ML IVPB ONE (07:09)
[2016-11-06] MEDS: POTASSIUM CHLORIDE 20 MEQ TAB PO SCH (07:40)
[2016-11-06] MEDS: APIXABAN 2.5 MG TAB PO SCH ×2 (07:56→08:53)
[2016-11-06] MEDS: NITROGLYCERIN 0.4 MG/HR PATCH TOP SCH (08:52)
[2016-11-06] MEDS: METOPROLOL SUCCINATE XL 50 MG TAB PO SCH (08:52)
[2016-11-06] MEDS: ASPIRIN EC 81 MG TAB PO SCH (08:53)
[2016-11-06] MEDS: FUROSEMIDE INJ 40 MG/4 ML VIAL IV SCH (08:53)
[2016-11-06] MEDS: SODIUM CHLORIDE 0.9% (FLUSH) 10 ML SYG IV SCH (08:53)
[2016-11-06] MEDS: LISINOPRIL 10 MG TAB PO SCH (08:53)
[2016-11-06] MEDS: KCL 20MEQ/D5 1/2NS 1,000 ML IVS PRN (09:31)
[2016-11-06 10:13] VITALS: BP 160/100; TEMP 97.4
--- NOTE | 2016-11-06 12:55 | US ---
EXAM DESCRIPTION: Gall Bladder. Right upper quadrant abdominal ultrasound. CLINICAL HISTORY: Cholelithiasis. COMPARISON: None. TECHNIQUE: Routine sonographic images of the right upper quadrant of the abdomen were acquired and submitted for review. FINDINGS: Liver: The liver is mildly enlarged up to 15.8 cm. It demonstrates increased echogenicity. Bile ducts- Intrahepatic and extrahepatic bile ducts not dilated with common bile duct measuring 5 mm. Gallbladder: The gallbladder contains numerous shadowing calculi which measure up to 38 mm in greatest dimension. The gallbladder wall is normal at 3 mm. No pericholecystic fluid. Pancreas: The pancreas is not well seen due to bowel gas, but visualized portions are unremarkable. Right kidney: Not well seen due to bowel gas. Aorta & Inferior vena cava: The IVC is unremarkable. The aorta is not well seen. Ascites: none IMPRESSION: 1. Cholelithiasis without sonographic evidence for cholecystitis. 2. Hepatomegaly with hepatic steatosis. Electronically signed by: Varun Alamo MD 11/06/2016 12:54 PM CDT
--- NOTE | 2016-11-06 20:56 | DS ---
SUPERVISING PHYSICIAN: Reynold Groves M.D. DISCHARGE DIAGNOSIS: 1. Chronic cholelithiasis with acute exacerbation with associated nausea and vomiting on admission with large stones with final ultrasound showing confirmed cholelithiasis without any evidence of cholecystitis at time of discharge. 2. Chronic congestive heart failure with an acute exacerbation, possibly diastolic in etiology, yet no recent echocardiogram available. The patient presented with significant lower extremity edema, improved with diuresis also with an elevated BNP on admission. 3. Leukocytosis, persistent but improving possibly secondary to demarginalization from active nausea and vomiting with no other obvious source of infection other than underlying urinary tract infection that was treated with parenteral antibiotics. 4. Hypokalemia, improved after supplementation. 5. Hyponatremia, improved after supplementation. 6. History of myocardial infarction with stents placed in August of 2016. 7. History of hyperlipidemia. 8. History of gastroesophageal reflux disease. 9. History of hypertension that has prevented surgical intervention in years past for gallbladder disease. 10. Acute abdominal pain, left and right lower quadrants likely secondary to abnormal uterus as noted in ultrasound with thickening of the uterine wall for possibly underlying neoplastic process. 11. Abnormal uterus with dilation significantly noted of the endometrial cavity as well as thickening of the uterine wall, suggesting the possibility of a neoplastic process, requiring gynecological evaluation and endometrial biopsies to be followed by Dr. Geronimo. 11. Acute urinary tract infection with final culture results showing Escherichia coli, treated with Rocephin and transitioned to oral antibiotics at time of discharge. HISTORY OF PRESENT ILLNESS: Ms. Rivera is a 70 year-old female patient who initially presented to the Emergency Room on 11/01/16 after she started having some uncontrolled vomiting approximately 30 minutes prior to arrival to the E. R. She noticed she had become very dizzy but denied any significant headache, chest pain or abdominal pains. EMS was notified to transport the patient to the Emergency Department and on arrival the patient was noted to have lower extremity edema which the patient said had started the morning prior to current admission. EMS initially gave the patient 40 mg of Lasix and Zofran. She was also reported to have symptom onset shortly after eating breakfast the same morning of admission. She also notes that she was significantly dizzy with eyes swimming anytime she opened her eyes. She initially was given Zofran and Phenergan in the E. R. without any significant improvement. Laboratory studies completed showed that she had a slightly elevated white count of 11.4 with no left shift and chemistries showing just a low potassium of 3.4. Liver enzymes and pancreatic enzymes were all within normal limits. After some time in the Emergency Department, the patient's nausea had resolved but given the fact that she had a sudden onset of nausea with the elevated BNP and lower extremity edema, it was felt the patient was having some exacerbation of her congestive heart failure plus possible gallbladder complications, and she was then admitted to the medical/surgical floor for continued evaluation and treatment. LABORATORY: Initial white count on admission was 11.4, at time of discharge it was still slightly elevated but had gone up to a maximum of 50.9, at discharge was 14.1. Hemoglobin and hematocrit were stable and at discharge was 11.0 and 35.1. Platelet count was 255,000. Differential showed to be with a left shift at time of discharge. Chemistries initially on admission showed potassium 3.4 with normal electrolytes with BUN 20, creatinine 9.8. Through the remainder of the hospitalization stay, electrolytes remained normal at discharge, potassium 4.5, BUN 16, creatinine 1.0. Liver functions on admission initially showed all to be within normal limits. Troponin was 0.03. BNP was elevated at 1480. Repeat BNP prior to discharge showed to decrease down to 976. Pancreatic enzymes remained within normal limits. She did have an elevated TSH of 5.66. Urinalysis on admission showed a small amount of blood on dipstick, otherwise was within normal limits. Microscopic just showed rare bacteria with 1+ amorphous, zero white cells, zero WBCs. She had an additional urinalysis completed after she started having some notable vaginal bleeding with that showing greater than 300 protein, large amount of blood, leukocyte esterase was negative. Microscopic showed just too numerous to count RBCs which obscured all other indices. She did have 1 occult blood that was negative. MICROBIOLOGY: She had an initial urine culture that showed Escherichia coli that was pansensitive. At time of discharge, she had a final culture that was pending. RADIOLOGY: She initially in the Emergency Department had a chest x-ray prior to admission and per radiology interpretation that showed cardiomegaly with minimal interstitial edema which appeared to be improved compared to prior. No pleural effusions or pneumothoraxes were noted. No acute osseous abnormalities were also noted. She had a CT of the head completed prior to admission to the Emergency Department and in the Emergency Department that radiologist's interpretation showed no acute CT evidence of intracranial abnormalities. She had an additional CT of the abdomen and pelvis initially prior to admission and per radiology interpretation there was note of cholelithiasis and pericholecystic fluid that was compatible with acute cholecystitis. She had an ultrasound of the lower extremities that were both negative for DVTs. She did experience significant increase in pain in the abdomen area, therefore additional CT of the abdomen was completed on 11/04/16 and per radiology interpretation there is indication that there is marked distention of the endometrial cavity which was increased from prior exams with concerns that this may be due to obstruction of the cervix and cholelithiasis was once again noted. This was followed-up with a transvaginal ultrasound and per radiology interpretation there was an abnormally thickened endometrium concerning for endometrial carcinoma with endometrial hyperplasia or polyps. Endometrial biopsy was recommended. Nonvisualization of the ovaries due to atrophy or scattered bowel gas was noted. She had 1 abdominal x-ray after that on the day before discharge which showed to be unremarkable per radiology interpretation. She had a gallbladder ultrasound on the morning of discharge and per radiology interpretation indicated cholelithiasis without any sonographic evidence of cholecystitis. There was note of hepatomegaly with hepatic steatosis. HOSPITAL COURSE: Ms. Rivera was admitted on 11/01/16 as noted in the History of Present Illness. She was given Lasix initially for an exacerbation of her chronic obstructive pulmonary disease which she did show good results with diuresis well over 4 liters through the entire hospitalization. She did develop some abdominal pain and also a consultation was secured with Dr. Herbert with regards to the findings on the CT of the gallbladder noted for cholecystitis possible. She progressed well. Was started on antibiotics for the underlying urinary tract infection and clinically improved, however on on the morning of, she developed significant abdominal pains with some hypertension which after an abdominal CT was once again repeated showing the findings of the increased endometrial cavity with some noted vaginal bleeding, although her H&H remained stable. She was on Eliquis for the underlying atrial fibrillation, but remained stable in regards to her H&H and continued to progress clinically after she was changed to a low fat diet. It was felt on the date of discharge that she was well enough to be discharged to have close clinical followup in the outpatient setting both in regards to the possible cholecystectomy in the near future as well as followup with Dr. Geronimo in regards to the findings on CT in regards to the endometrial size, and concerns for an underlying neoplasm. She remained hemodynamically stable and at time of discharge she was afebrile as well with temperature 97.4, pulse 70, blood pressure was slightly elevated with blood pressure of 160/100 with respirations 18 and satting 97% on room air. The patient's blood pressure was noted to be fairly stable except towards the morning hours she would become somewhat hypertensive until after her morning medications were started, so possibly that she was in need of further adjustment of her hypertensive medications. She had no further complaints and was discharged in stable condition. PLAN: Ms. Rivera was discharged on 11/06/16 to have close clinical followup with both Dr. Geronimo, Dr. Herbert and [facility] as scheduled. She was instructed to resume her home medications and keep close monitoring of her blood pressure, and keep a log and take it with her to her followup appointments. She also was scheduled for a HIDA scan on 11/24/16 at 9:00 AM and instructed per radiology not to eat or drink starting midnight prior before the procedure. She was to pay close attention to her fluid intake, keep well below 1800 mL in a 24 hour period, and if worsening leg edema or congestive heart failure, note her primary care providers. She was to follow a no fat or low fat gallbladder diet as instructed for any worsening of her nausea. She was given Zofran for any nausea and instructed to take Tylenol for pain. She was to return to the hospital should she show no improvement of her symptoms or any worsening, or other concerning symptoms. At time of discharge, new prescriptions included: 1. Ceftin 500 mg twice daily, #8. 2. Zofran 4 mg every 6 hours as needed, #9. All other medications were resumed as previous to admission. She was discharged in stable condition. #[id number] [facility]
== END 2016-11-06 12:45 | disposition home health service (06) | DRG 444 ==
LOC: ER 11:52 → MS 14:13 → OBSVTOIN 14:13 → MS 11-04 07:00
PROVIDERS: ADMIT Nurse Practitioner Family; ATTEND Nurse Practitioner Family
PROC: BW21YZZ Computerized Tomography (CT Scan) of Abdomen and Pelvis using Other Contrast (ICD-10-PCS; 2016-11-01)
PROC: BW21YZZ Computerized Tomography (CT Scan) of Abdomen and Pelvis using Other Contrast (ICD-10-PCS; principal; 2016-11-04)
DX: K80.00 Calculus of gallbladder with acute cholecystitis without obstruction (principal); I50.33 Acute on chronic diastolic (congestive) heart failure; E87.1 Hypo-osmolality and hyponatremia; N39.0 Urinary tract infection, site not specified; Z68.42 Body mass index [BMI] 45.0-49.9, adult; I25.2 Old myocardial infarction; I25.10 Atherosclerotic heart disease of native coronary artery without angina pectoris; E78.5 Hyperlipidemia, unspecified; K21.9 Gastro-esophageal reflux disease without esophagitis; I11.0 Hypertensive heart disease with heart failure; B96.20 Unspecified Escherichia coli [E. coli] as the cause of diseases classified elsewhere; E87.6 Hypokalemia; E66.9 Obesity, unspecified; R93.8 Abnormal findings on diagnostic imaging of other specified body structures; Z95.5 Presence of coronary angioplasty implant and graft

== ENCOUNTER → 2016-11-14 | Outpatient (CLI) | payer OTHER, MEDICAID ==
--- NOTE | 2016-11-15 10:32 | NM ---
Procedure: NM HEPATOBILIARY WITH PHARM Exam Date: 11/14/2016 Ordering Provider: Halina Rosado Clinical Indication: GALLSTONES, NAUSEA VOMITING Comparison: 11/06/2016 gallbladder ultrasound Technique: Seven millicuries of technetium 99m Choletec were intravenously. Anterior imaging of the right upper quadrant was obtained. Once the gallbladder was visualized, a fatty meal was administered. The gallbladder ejection fraction was then calculated. Findings: There is normal uptake of radiotracer from the blood pool by the liver. There is excretion into the biliary tree at 10 minutes. There is excretion into the gallbladder at 22 minutes. There is excretion into the small bowel at 20 minutes. The gallbladder ejection fraction measures 80 % which is normal. Impression: 1. No evidence of acute cholecystitis. 2. Normal gallbladder ejection fraction. Electronically signed by: Abdi Rodas MD 11/15/2016 10:28 AM CDT
== END ==
LOC: NM 08:30
PROVIDERS: ATTEND Surgery
DX: R10.84 Generalized abdominal pain (principal); R11.2 Nausea with vomiting, unspecified

== ENCOUNTER → 2017-03-04 | Outpatient (CLI) | payer OTHER, MEDICAID | LOC: MAMMO 15:37 | PROVIDERS: ATTEND Nurse Practitioner Family | DX: Z12.31 Encounter for screening mammogram for malignant neoplasm of breast (principal) | CPT/HCPCS: G0202; G0279 ==

== ENCOUNTER → 2017-03-19 | Outpatient (CLI) | payer OTHER, MEDICAID ==
--- NOTE | 2017-03-19 15:12 | US ---
EXAM DESCRIPTION: Breast,Left CLINICAL HISTORY: 71 years Female, screening mammogram demonstrated possible abnormality left breast central portion COMPARISON: March 04, 2017 3-D mammogram FINDINGS: Real-time ultrasound left breast performed in my presence shows a small central lymph node with fatty hilum in the central aspect of the left breast corresponding to the mammographic abnormality. There is no worrisome solid or cystic finding. IMPRESSION: BIRAD CATEGORY: 2 BENIGN Electronically signed by: Grayson Tatum MD 03/19/2017 3:11 PM CDT Workstation: [id number]
--- NOTE | 2017-03-20 13:00 | RAD ---
EXAM DESCRIPTION: Chest,2 Views CLINICAL HISTORY: z01.811 preop COMPARISON: November 02, 2016 FINDINGS: Frontal and lateral views of the chest. Cardiac silhouette shows cardiomegaly without congestive failure. Calcific atherosclerosis noted of the aortic arch. Lungs are clear without focal consolidations. Bilateral costophrenic angles are sharp. No pneumothorax. No acute osseous abnormality. IMPRESSION: No radiographic evidence of acute cardiopulmonary disease. Electronically signed by: Beau Feldman MD 03/20/2017 12:59 PM CDT
== END ==
LOC: MAMMO 13:00
PROVIDERS: ATTEND Nurse Practitioner Family
DX: R92.8 Other abnormal and inconclusive findings on diagnostic imaging of breast (principal); Z01.818 Encounter for other preprocedural examination; C55 Malignant neoplasm of uterus, part unspecified

== ENCOUNTER → 2018-03-11 | Outpatient (CLI) | payer OTHER, MEDICAID | LOC: YCHH 09:55 → EDSTATUS 10:21 | PROVIDERS: ATTEND Family Medicine | DX: I10 Essential (primary) hypertension (principal); R73.01 Impaired fasting glucose; E78.2 Mixed hyperlipidemia; D64.9 Anemia, unspecified ==

== ENCOUNTER 2018-04-21 08:36 | Emergency (ER) | payer OTHER, MEDICAID ==
[2018-04-21 08:54] VITALS: TEMP 97.8
--- NOTE | 2018-04-21 09:15 | ED.PDOC ---
History of Present Illness - General Chief Complaint: Back Pain or Injury Stated Complaint: left sided low back pain Time Seen by Provider: 04/21/18 08:59 Source: patient Exam Limitations: no limitations - History of Present Illness Initial Comments: Viji Rivera 72 y/o female stated she had intermittent sharp left sided back pains radiating to back of her left thigh which started 3 days ago and got worse after coming from the bathroom this am as she walks to her bed.Stated aggravated mostly by movement and turning from side to side,denies numbness, bowel or bladder dysfunction,no fever,no dysuria,had good BM this am.No history of recent or remote trauma/fall to back .Has history of heart disease and PVD. Timing/Duration: other - 3 days Back Pain Location: lumbar spine Back Pain Radiation: other - left thigh Method of Injury/Prior Injury: other - none Improving Factors: rest Worsening Factors: movement Associated Symptoms: lower back pain Allergies/Adverse Reactions: Allergies NO KNOWN ALLERGY Allergy (Verified 09/05/16 13:36) Home Medications: Ambulatory Orders Apixaban [Eliquis] 2.5 mg PO BID 09/05/16 Lisinopril 20 mg PO DAILY 09/05/16 Metoprolol Succinate [Metoprolol Succinate ER] 50 mg PO DAILY 09/05/16 Nitroglycerin Patch 0.4 mg/Hr [Nitro-Dur PATCH 0.4 mg/hour] 0.4 mg TOP QD #30 patch 09/08/16 Potassium Chloride Tab [Micro-K] 10 meq PO DAILYBK #30 tab 09/08/16 Atorvastatin Calcium 40 mg PO BEDTIME 04/21/18 Furosemide Tab [Lasix Tab] 40 mg PO DAILY 04/21/18 Gabapentin 300 mg PO BEDTIME #30 cap 04/21/18 Prednisone 10 mg PO BID #14 tab 04/21/18 Spironolactone 50 mg PO BID 04/21/18 Tramadol HCl 50 mg PO Q6HRS PRN #30 tab 04/21/18 hydrALAZINE HCl [(None)] 50 mg PO TID 04/21/18 Review of Systems - Review of Systems Constitutional: States: no symptoms reported EENTM: States: no symptoms reported Respiratory: States: no symptoms reported Cardiology: States: no symptoms reported Gastrointestinal/Abdominal: States: no symptoms reported Genitourinary: States: no symptoms reported Musculoskeletal: States: see HPI Skin: States: no symptoms reported Neurological: States: no symptoms reported Past Medical History (General) - Patient Medical History Hx Seizures: No Hx Stroke: No Hx Asthma: No Hx of COPD: No Hx Cardiac Disorders: Yes - recent OH,CAD Hx Congestive Heart Failure: Yes Hx Pacemaker: No Hx Hypertension: Yes Hx Diabetes: No Hx Gastroesophageal Reflux: Yes Hx Cancer: Yes - Uterine-remission Hx MRSA: No Hx Other PMH: Yes - PVD Surgical History: other - hysterectomy;cardiac and femoral stents - Vaccination History Hx Influenza Vaccination: No Hx Pneumococcal Vaccination: Yes - Social History Hx Tobacco Use: No Hx Alcohol Use: No Hx Substance Use: No Hx Physical Abuse: No Hx Emotional Abuse: No - Activities of Daily Living Patient Lives Alone: No - son Grooming Ability: Independent Eating (Feeding) Ability: Independent Toileting Ability: Independent - Female History Patient : No Family Medical History - Family History Mother Family History: Unknown Living Status: Hx Family Cancer: Yes - lungs-mom Physical Exam - Physical Exam General Appearance: Alert, Comfortable, No apparent distress Eyes, Ears, Nose, Throat Exam: normal ENT inspection, TMs normal, pharynx normal Neck Exam: non-tender, full range of motion, normal alignment, normal inspection Cardiovascular/Respiratory: regular rate, rhythm, no M/R/G, normal peripheral pulses, no JVD, normal breath sounds Peripheral Pulses: radial,right: 2+, radial,left: 2+ Gastrointestinal/Abdominal: normal bowel sounds, non tender, soft, no organomegaly Back Exam: normal inspection, no CVA tenderness, no vertebral tenderness Extremity Exam: no evidence of injury, normal range of motion, non-tender, no pedal edema, pelvis stable, other - straight leg raising test negative bilaterally Neurologic: no motor/sensory deficits, alert, oriented x 3, other - DTR- patellar reflex 2 + bilaterally Skin Exam: normal color, warm/dry, other - no rashes noted torso Progress - Progress Progress: 04/21/18 10:39 Vital Signs - 8 hr 04/21/18 04/21/18 08:48 09:36 Temperature 97.8 F Pulse Rate [ 56 L 59 L Left Ulnar] Respiratory 20 16 Rate Blood Pressure 138/81 117/63 [Left Arm] O2 Sat by Pulse 99 98 Oximetry 04/21/18 11:34 explained test results to patient that she needs follow up with primary Md since limbar ct did not show either spinal stenosis or herniated disc needing mri -lumbar which is done out patient - Results/Orders Results/Orders: 04/21/18 10:50 Catheter:Straight .ONCE Laboratory Results - last 24 hr 04/21/18 04/21/18 06:25 10:45 WBC 7.2 RBC 3.32 L Hgb 11.0 L Hct 33.0 L MCV 99.3 H MCH 33.1 H MCHC 33.4 RDW 13.7 Plt Count 219 MPV 8.2 Absolute Neuts (auto) 5.80 Absolute Lymphs (auto) 0.70 L Absolute Monos (auto) 0.50 Absolute Eos (auto) 0.10 Absolute Basos (auto) 0.10 Neutrophils % 79.7 H Lymphocytes % 10.2 L Monocytes % 7.5 Eosinophils % 1.5 Basophils % 1.1 PT 11.2 H INR 1.12 PTT (SP) 24.0 Sodium 134 L Potassium 5.3 H Chloride 111 Carbon Dioxide 20 L Anion Gap 8.3 L BUN 50 H Creatinine 2.02 H BUN/Creatinine Ratio 24.8 H Random Glucose 102 Serum Osmolality 281.8 Calcium 9.7 Magnesium 1.8 Total Bilirubin 0.5 Direct Bilirubin < 0.1 Indirect Bilirubin 0.4 AST 14 ALT 12 Alkaline Phosphatase 70 Creatine Kinase 39 CK-MB (CK-2) 2.0 CK-MB (CK-2) % Not Reportable Troponin I 0.02 Serum Total Protein 9.2 H Albumin 3.5 Urine Color Yellow Urine Appearance Clear Urine pH 5.5 Ur Specific [place] 1.015 Urine Protein Negative Urine Glucose (UA) Negative Urine Ketones Negative Urine Blood Negative Urine Nitrite Negative Urine Bilirubin Negative Urine Urobilinogen 0.2 Ur Leukocyte Esterase Negative Urine RBC 0-1 Urine WBC 0-1 Ur Epithelial Cells 0-1 Amorphous Sediment Trace Urine Bacteria Rare Hyaline Casts 0-1 Urine Mucus Trace - EKG/XRAY/CT CT Ordered: Yes - cholelithiais,cardiomegay,atheroscerosis,degenerative changes spine Departure - Departure Clinical Impression: Low back pain potentially associated with radiculopathy, Renal insufficiency Time of Disposition: 11:29 Disposition: Discharge to Home or Self Care Departure Forms: ED Discharge - Pt. Copy, Patient Portal Self Enrollment Instructions: DI for Low Back Pain, DI for Back Pain With Sciatica Referrals: Halina Rosado, [facility]ER [Primary Care Provider] - 1-2 Weeks Prescriptions: Tramadol HCl 50 mg PO Q6HRS PRN #30 tab PRN Reason: Pain Gabapentin 300 mg PO BEDTIME #30 cap Prednisone 10 mg PO BID #14 tab Home Medications: Ambulatory Orders Apixaban [Eliquis] 2.5 mg PO BID 09/05/16 Lisinopril 20 mg PO DAILY 09/05/16 Metoprolol Succinate [Metoprolol Succinate ER] 50 mg PO DAILY 09/05/16 Nitroglycerin Patch 0.4 mg/Hr [Nitro-Dur PATCH 0.4 mg/hour] 0.4 mg TOP QD #30 patch 09/08/16 Potassium Chloride Tab [Micro-K] 10 meq PO DAILYBK #30 tab 09/08/16 Atorvastatin Calcium 40 mg PO BEDTIME 04/21/18 Furosemide Tab [Lasix Tab] 40 mg PO DAILY 04/21/18 Gabapentin 300 mg PO BEDTIME #30 cap 04/21/18 Prednisone 10 mg PO BID #14 tab 04/21/18 Spironolactone 50 mg PO BID 04/21/18 Tramadol HCl 50 mg PO Q6HRS PRN #30 tab 04/21/18 hydrALAZINE HCl [(None)] 50 mg PO TID 04/21/18 Additional Instructions: Follow up with your primary Md 22 April 2018;Return to ER as needed; continue with all home medications
[2018-04-21] MEDS ORDERED: ORPHENADRINE CITRATE 30 MG/ML AMP IV ONE (09:21)
[2018-04-21] MEDS ORDERED: DEXAMETHASONE INJ 10 MG/ML VIAL IV ONE (09:21)
[2018-04-21] MEDS ORDERED: MORPHINE SULFATE INJ 10 MG/ML VIAL IV ONE (09:21)
--- NOTE | 2018-04-21 10:35 | CT ---
Study: CT abdomen and pelvis. Indication: pain Technique: CT of the abdomen and pelvis obtained without intravenous contrast. This exam was performed according to our departmental dose-optimization program, which includes automated exposure control, adjustment of the mA and/or kV according to patient size and/or use of iterative reconstruction technique. Comparison: November 04, 2016. Findings: Visualized lung bases and liver demonstrate normal unenhanced CT appearance. Pronounced cardiomegaly with coronary artery atherosclerosis. Pronounced atherosclerosis aorta and its branches. Large peripherally calcified gallstones measuring up to 3.8 cm. Pancreas, spleen, adrenal glands, and bladder demonstrate normal unenhanced CT appearance. Bilateral adnexa unremarkable. Uterus likely surgically absent. Small right renal cyst noted inferiorly. Mild bilateral renal atrophy. Stomach, small bowel, colon, and appendix unremarkable. No free fluid. No free air. No pathologically enlarged lymphadenopathy. Degenerative changes of the spine noted. Impression: Cholelithiasis. Pronounced atherosclerosis. Cardiomegaly. Additional findings as above. Electronically signed by: Alexander Carrillo MD 04/21/2018 10:34 AM CDT
[2018-04-21 11:39] VITALS: BP 120/79; O2SAT 99
== END 2018-04-21 11:55 | disposition home or self-care (01) ==
LOC: ER 08:36
DX: M47.817 Spondylosis without myelopathy or radiculopathy, lumbosacral region (principal); N28.9 Disorder of kidney and ureter, unspecified; K80.20 Calculus of gallbladder without cholecystitis without obstruction; I50.9 Heart failure, unspecified; I25.2 Old myocardial infarction; I25.10 Atherosclerotic heart disease of native coronary artery without angina pectoris; I73.9 Peripheral vascular disease, unspecified; I11.0 Hypertensive heart disease with heart failure; K21.9 Gastro-esophageal reflux disease without esophagitis; Z85.42 Personal history of malignant neoplasm of other parts of uterus; Z79.899 Other long term (current) drug therapy
CPT/HCPCS: 36415; 74176; 80048; 80076; 81001; 82550; 82553; 84484; 85025; 85610; 85730; J1100; J2270; J2360

== ENCOUNTER → 2018-04-23 | Outpatient (CLI) | payer OTHER, MEDICAID ==
--- NOTE | 2018-04-23 12:05 | RAD ---
EXAM DESCRIPTION: Pelvis,2 or More Views CLINICAL HISTORY: PAIN IN LEFT HIP COMPARISON: Cannot compare to prior left hip radiographs 01/24/2012 due to poor technique on the prior study. TECHNIQUE: AP: neutral and abduction images. Left hip. AP bilateral hips and pelvis. FINDINGS: Minimal narrowing of the bilateral superior hip joints which is symmetric. Minimal hypertrophy of the superior lateral acetabular joint margins. No fracture or dislocation. No abnormal radiodense objects in the joint spaces or soft tissues. Vascular calcifications in the pelvis. Overall bone density is decreased. Possible arthrosis bilateral inferior SI joints. Spondylosis in the included lower lumbar spine. IMPRESSION: No acute bony or joint margin abnormality. Mild narrowing of the bilateral superior hip joint spaces. Overall bone density is decreased. Spondylosis lower lumbar spine. Consider osteoporosis screening, including DEXA examination. Previous bilateral screening digital breast tomosynthesis February 2017. Electronically signed by: Adriano St MD 04/23/2018 12:03 PM CDT
== END ==
LOC: RAD 11:29
PROVIDERS: ATTEND Nurse Practitioner Family
DX: M25.552 Pain in left hip (principal); M47.896 Other spondylosis, lumbar region

== ENCOUNTER → 2018-07-29 | Outpatient (CLI) | payer OTHER, MEDICAID | LOC: YCFC.O 16:45 | PROVIDERS: ATTEND Family Medicine | DX: R00.1 Bradycardia, unspecified (principal); I10 Essential (primary) hypertension; E78.2 Mixed hyperlipidemia; I50.9 Heart failure, unspecified ==

== ENCOUNTER → 2018-08-17 | Outpatient (CLI) | payer OTHER, MEDICAID | LOC: YCFC.O 10:36 | PROVIDERS: ATTEND Family Medicine | DX: D64.9 Anemia, unspecified (principal) ==

== ENCOUNTER → 2018-08-20 | Outpatient (CLI) | payer OTHER, MEDICAID | LOC: LAB.O 09:44 | PROVIDERS: ATTEND Nurse Practitioner Family | DX: D64.9 Anemia, unspecified (principal) ==

== ENCOUNTER → 2019-01-27 | Outpatient (CLI) | payer OTHER, MEDICAID | LOC: YCHH 09:25 | PROVIDERS: ATTEND Nurse Practitioner Family | DX: E78.2 Mixed hyperlipidemia (principal); I10 Essential (primary) hypertension; I25.83 Coronary atherosclerosis due to lipid rich plaque; D64.9 Anemia, unspecified ==

== ENCOUNTER 2019-02-01 07:18 | Emergency (ER) | payer MEDICARE, MEDICAID ==
[2019-02-01] MEDS ORDERED: LIDOCAINE 1% W/ EPINEPHRINE 20 ML VIAL INJ ONE ×2 (07:56→07:57)
[2019-02-01 08:06] VITALS: TEMP 97
[2019-02-01] MEDS ORDERED: ceFAZolin SODIUM 2 GRAMS PREMI 50 ML IVPB ONE (09:04)
--- NOTE | 2019-02-01 09:27 | ED.PDOC ---
History of Present Illness - General Chief Complaint: Trauma Stated Complaint: Pt fell this AM sitting on the toilet Time Seen by Provider: 02/01/19 09:19 Source: patient Exam Limitations: no limitations - History of Present Illness Initial Comments: Viji Rivera 73 y/o female brought by EMS to ER after patient fell in the bathroom hitting head on the side of tub.Stated her walker got bent then slipped and fell.Denies syncopal episode,lightheadedness,blurry vision remembers incident.Denies neck pains,mild headache,no N/V.Has large scalp laceration top of head.Son living with her called EMS and on their arrival was noted sitting in the commode.Patient has Afib taking NOAC.According to EMS fell 3x this week Occurred: this morning Severity: moderate Pain Location: head Method of Injury: fall Improving Factors: nothing Worsening Factors: nothing Loss of Consciousness: no loss of consciousness Associated Symptoms (Fall): other - see hpi Allergies/Adverse Reactions: Allergies NO KNOWN ALLERGY Allergy (Verified 09/05/16 13:36) Home Medications: Ambulatory Orders Apixaban [Eliquis] 2.5 mg PO BID 09/05/16 Lisinopril 20 mg PO DAILY 09/05/16 Metoprolol Succinate [Metoprolol Succinate ER] 50 mg PO DAILY 09/05/16 Potassium Chloride Tab [Micro-K] 10 meq PO DAILYBK #30 tab 09/08/16 Atorvastatin Calcium 40 mg PO BEDTIME 04/21/18 Furosemide Tab [Lasix Tab] 40 mg PO DAILY 04/21/18 Gabapentin 300 mg PO BEDTIME #30 cap 04/21/18 Spironolactone 50 mg PO BID 04/21/18 hydrALAZINE HCl [(None)] 50 mg PO TID 04/21/18 Cyanocobalamin [Vitamin B-12] 500 mcg SL DAILY 02/01/19 Nitroglycerin 0.4 mg Tab [Nitrostat] 0 ea SL PRN 02/01/19 Nitroglycerin Patch 0.4 mg/Hr [Nitro-Dur PATCH 0.4 mg/hour] 0.4 mg TOP QD 02/01/19 Review of Systems - Review of Systems Constitutional: States: no symptoms reported EENTM: States: no symptoms reported Respiratory: States: no symptoms reported Cardiology: States: see HPI Gastrointestinal/Abdominal: States: no symptoms reported Skin: States: see HPI, other - scalp laceration Neurological: States: no symptoms reported Hematologic/Lymphatic: States: no symptoms reported All other Systems: Reviewed and Negative, No Change from Baseline Past Medical History (General) - Patient Medical History Hx Seizures: No Hx Stroke: No Hx Asthma: No Hx of COPD: No Hx Cardiac Disorders: Yes - recent [place],CAD Hx Congestive Heart Failure: Yes Hx Pacemaker: No Hx Hypertension: Yes Hx Diabetes: No Hx Gastroesophageal Reflux: Yes Hx Cancer: Yes - Uterine-remission Hx MRSA: No Hx Other PMH: Yes - PAD Surgical History: other - hysterectomy,cardiac and femoral stent - Vaccination History Hx Tetanus, Diphtheria Vaccination: No Hx Influenza Vaccination: Yes Hx Pneumococcal Vaccination: Yes - Social History Hx Tobacco Use: No Hx Alcohol Use: No Hx Substance Use: No Hx Substance Use Treatment: No Hx Depression: No Hx Physical Abuse: No Hx Emotional Abuse: No - Female History Patient is a Female of Child Bearing Age (10 -59 yrs old): No Patient : No Family Medical History - Family History Mother Family History: Unknown Living Status: Hx Family Cancer: Yes - lungs-mom Physical Exam - Physical Exam General Appearance: Alert, Comfortable, No apparent distress Head Injury: flap - scalp extend to aponeurotic layer Eye Exam: bilateral normal ENT Exam: hearing grossly normal, no evidence of ENT injury, no dental injury Neck Exam: non-tender, full range of motion, normal alignment, normal inspection Cardiovascular/Respiratory: regular rate, rhythm, no M/R/G, normal peripheral pulses, no JVD, normal breath sounds Gastrointestinal/Abdominal: normal bowel sounds, non tender, soft, no organomegaly Extremity Exam: non-tender, no pedal edema, pelvis stable Neurologic: alert, oriented x 3 Skin Exam: normal color, warm/dry, other - multiple old bruising back - Lexy Coma Score Best Eye Response (Lexy): (4) open spontaneously Best Verbal Response ([place]): (5) oriented Best Motor Response (Lexy): (6) obeys commands Progress - Progress Progress: 02/01/19 09:30 Vital Signs 02/01/19 02/01/19 07:20 08:18 Temperature 97 F L Pulse Rate [R 69 91 H finger] Respiratory 20 20 Rate Blood Pressure 150/99 145/87 [L arm] O2 Sat by Pulse 100 95 Oximetry - Results/Orders Results/Orders: Laboratory Tests 02/01/19 02/01/19 02/01/19 09:40 09:40 09:40 WBC 20.3 H* RBC 3.36 L Hgb 11.2 L Hct 31.5 L MCV 93.9 MCH 33.4 H MCHC 35.6 RDW 13.4 Plt Count 296 MPV 8.1 Absolute Neuts (auto) Not Reportable Absolute Lymphs (auto) Not Reportable Absolute Monos (auto) Not Reportable Absolute Eos (auto) Not Reportable Neutrophils % Not Reportable Neutrophils % (Manual) 89.0 H Lymphocytes % Not Reportable Lymphocytes % (Manual) 5.0 Monocytes % Not Reportable Monocytes % (Manual) 2.0 Eosinophils % Not Reportable Basophils % Not Reportable Band Neutrophils 4.0 H Platelet Estimate Normal PT 11.2 H INR 1.12 PTT (SP) 24.9 Sodium 110 L* Potassium 4.2 Chloride 82 L Carbon Dioxide 17 L Anion Gap 15.2 BUN 33 H Creatinine 1.91 H BUN/Creatinine Ratio 17.3 Random Glucose 146 H Serum Osmolality 231.6 L* Lactic Acid Calcium 9.0 Magnesium 1.4 L Total Bilirubin 0.9 Direct Bilirubin 0.1 Indirect Bilirubin 0.8 AST 32 ALT 20 Alkaline Phosphatase 84 Creatine Kinase 214 H* CK-MB (CK-2) 10.7 H* CK-MB (CK-2) % 5.00 H Troponin I 0.03 Serum Total Protein 9.8 H Albumin 3.2 TSH 5.93 H Urine Color Urine Appearance Urine pH Ur Specific Swan Urine Protein Urine Glucose (UA) Urine Ketones Urine Blood Urine Nitrite Urine Bilirubin Urine Urobilinogen Ur Leukocyte Esterase Urine RBC Urine WBC Ur Epithelial Cells Urine Bacteria 02/01/19 02/01/19 11:14 11:20 WBC RBC Hgb Hct MCV MCH MCHC RDW Plt Count MPV Absolute Neuts (auto) Absolute Lymphs (auto) Absolute Monos (auto) Absolute Eos (auto) Neutrophils % Neutrophils % (Manual) Lymphocytes % Lymphocytes % (Manual) Monocytes % Monocytes % (Manual) Eosinophils % Basophils % Band Neutrophils Platelet Estimate PT INR PTT (SP) Sodium Potassium Chloride Carbon Dioxide Anion Gap BUN Creatinine BUN/Creatinine Ratio Random Glucose Serum Osmolality Lactic Acid 1.8 Calcium Magnesium Total Bilirubin Direct Bilirubin Indirect Bilirubin AST ALT Alkaline Phosphatase Creatine Kinase CK-MB (CK-2) CK-MB (CK-2) % Troponin I Serum Total Protein Albumin TSH Urine Color Yellow Urine Appearance Sl cloudy Urine pH 6.0 Ur Specific Swan 1.015 Urine Protein Negative Urine Glucose (UA) Negative Urine Ketones Negative Urine Blood Negative Urine Nitrite Negative Urine Bilirubin Negative Urine Urobilinogen 0.2 Ur Leukocyte Esterase Negative Urine RBC 0 Urine WBC 0 Ur Epithelial Cells 1-3 Urine Bacteria 0 Discuss test result with patient and daughter - EKG/XRAY/CT EKG: Atrial, Fibrillation Comments: HR-66 XRAY: pelvis - no fracture CT Ordered: Yes - no acute bleeding/or fracture Departure - Departure Clinical Impression: Hyponatremia, Atrial fibrillation with controlled ventricular rate, Current use of halfway anticoagulation Fall at home Qualifiers: Encounter type: initial encounter Qualified Code(s): W19.XXXA - Unspecified fall, initial encounter Disposition: Transfer to Hospital Condition: Fair Departure Forms: ED Discharge - Pt. Copy, Patient Portal Self Enrollment Referrals: Michael Dillon MD [Primary Care Provider] - 1-2 Weeks Home Medications: Ambulatory Orders Apixaban [Eliquis] 2.5 mg PO BID 09/05/16 Lisinopril 20 mg PO DAILY 09/05/16 Metoprolol Succinate [Metoprolol Succinate ER] 50 mg PO DAILY 09/05/16 Potassium Chloride Tab [Micro-K] 10 meq PO DAILYBK #30 tab 09/08/16 Atorvastatin Calcium 40 mg PO BEDTIME 04/21/18 Furosemide Tab [Lasix Tab] 40 mg PO DAILY 04/21/18 Gabapentin 300 mg PO BEDTIME #30 cap 04/21/18 Spironolactone 50 mg PO BID 04/21/18 hydrALAZINE HCl [(None)] 50 mg PO TID 04/21/18 Cyanocobalamin [Vitamin B-12] 500 mcg SL DAILY 02/01/19 Nitroglycerin 0.4 mg Tab [Nitrostat] 0 ea SL PRN 02/01/19 Nitroglycerin Patch 0.4 mg/Hr [Nitro-Dur PATCH 0.4 mg/hour] 0.4 mg TOP QD 02/01/19 Transfer to Outside Facility - Transfer Information Accepting Provider:: Dr. 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
[2019-02-01] MEDS: TETANUS,DIPHTHERIA,PERTUSSIS 1 EA SYG IM ONE (09:34)
[2019-02-01] MEDS: ceFAZolin SODIUM 2 GRAMS PREMI 2 GM in PREMIX BAG 1 BAG IVPB ONE (09:37)
--- NOTE | 2019-02-01 10:19 | CT ---
EXAM DESCRIPTION: Cervical Spine CLINICAL HISTORY: 73 years Female, fall COMPARISON: None. TECHNIQUE: Axial CT images were obtained through the cervical spine without contrast. Sagittal and coronal reformations were provided. Images are reviewed in bone and soft-tissue algorithms. This exam was performed according to our departmental dose-optimization program, which includes automated exposure control, adjustment of the mA and/or kV according to patient size and/or use of iterative reconstruction technique. FINDINGS: Vertebrae and facet joints: No acute fracture. No acute compression or 40. Mild straightening of the normal cervical lordosis which may be positional or due to muscle spasm. No abnormal scoliotic curvature or lateral translation. Multilevel facet arthropathy, greatest and severe at bilateral C2-C3, right C3-C4, left C4-C5. Central canal and foramina: Mild disc space narrowing at C3-C4 through C6-C7. Small disc osteophyte complexes at posterior C3-C4 and C4-C5 contributing up to moderate spinal canal stenosis at C3-C4 and C4-C5. Multilevel neural foraminal compromise, greatest and severe at right C3-C4 and moderate at left C3-C4, left C4-C5, bilateral C5-C6. Paraspinous soft-tissues: Paravertebral soft tissues unremarkable. There is a punctate calcification within the left thyroid gland with no suspicious hypodense thyroid nodule. IMPRESSION: 1. No acute fracture or subluxation. 2. Cervical spondylosis with up to moderate spinal canal stenosis at C3-C4 and C4-C5. 3. Multilevel neural foraminal compromise, greatest and severe at right C4 and moderate at left C4, left C5, bilateral C6. Electronically signed by: Lux Couch MD 02/01/2019 10:17 AM CDT
--- NOTE | 2019-02-01 10:19 | CT ---
Study: CT of the Head. Indication: fall Technique: Axial CT images of the head were acquired without intravenous contrast. This exam was performed according to our departmental dose-optimization program, which includes automated exposure control, adjustment of the mA and/or kV according to patient size and/or use of iterative reconstruction technique. Comparison: November 01, 2016. Findings: No acute ischemia, acute hemorrhage, midline shift, or extra-axial fluid collection identified by CT. On coronal image 16 there is a suspected tiny 15 mm high right frontal paramedian partially calcified meningioma without mass effect. Ventricles are normal in configuration without hydrocephalus. Patchy hypoattenuation of the periventricular and subcortical white matter noted. This is nonspecific but most consistent with chronic microvascular ischemic change. Global parenchymal volume loss and intracranial atherosclerosis noted as well. Paranasal sinuses are adequately aerated. Mastoid air cells are adequately aerated. At the calvarial vertex there is a laceration subcutaneous emphysema and associated scalp hematoma. No underlying fracture identified. There are several indeterminate low-density lesions throughout the calvarium. For reference on axial image 49 in the right parietal bone there is a 9 mm lesion. Within the right frontal bone on image 50 there is a 8 mm lesion. These are new compared to the prior. Impression: No acute intracranial hemorrhage Senescent changes. Indeterminate new low-density lesions of the calvarium. Metastatic disease and multiple myeloma should be excluded. Further characterization with whole-body bone scan recommended. High calvarial scalp injury as above. No underlying fracture identified. Suspect tiny calcified high right frontal meningioma. Electronically signed by: Alexander Carrillo MD 02/01/2019 10:17 AM CDT
--- NOTE | 2019-02-01 10:40 | RAD ---
EXAM DESCRIPTION: Chest,1 View CLINICAL HISTORY: 73 years Female, fall COMPARISON: Previous study February 01, 2019 TECHNIQUE: AP portable chest. FINDINGS: Heart size is large with normal pulmonary vascularity. Right hemidiaphragm is elevated. No consolidating infiltrate. No pulmonary mass or worrisome nodule. No pneumothorax or pleural effusion. Bones are unremarkable. IMPRESSION: Large heart without congestive failure. Electronically signed by: Gilberto Ugalde MD 02/01/2019 10:38 AM CDT
--- NOTE | 2019-02-01 10:41 | RAD ---
EXAM DESCRIPTION: Bilateral Ribs CLINICAL HISTORY: 73 years Female, fall COMPARISON: None. FINDINGS: Heart is enlarged without congestive failure. Right hemidiaphragm is elevated. Right ribs appear intact. No fracture or lytic lesion. Left ribs appear intact. No fracture or lytic lesion. Degenerative changes in the lower T-spine. Calcified splenic artery in the left upper abdomen. IMPRESSION: Negative for fracture. Electronically signed by: Gilberto Ugalde MD 02/01/2019 10:39 AM CDT
--- NOTE | 2019-02-01 10:47 | RAD ---
EXAM DESCRIPTION: Femur,Left CLINICAL HISTORY: fall COMPARISON: None FINDINGS: 4 views of the left femur. No acute fracture, dislocation or aggressive bone lesion is demonstrated. Mild vascular calcifications are present. There is a oval-shaped radiopaque 1.8 cm density projecting over the medial aspect of the soft tissues of the proximal thigh. This may be intrinsic or extrinsic to the patient and of doubtful clinical significance. IMPRESSION: No acute radiographic abnormality. Electronically signed by: Catrachito Orellana MD 02/01/2019 10:45 AM CDT
--- NOTE | 2019-02-01 11:10 | RAD ---
EXAM DESCRIPTION: Knee,Left 2 or More Views CLINICAL HISTORY: 73 years Female, fall TECHNIQUE: 3 views of the left knee were performed. COMPARISON: None available. FINDINGS: The visualized bones appear well mineralized. No acute fracture or dislocation. Moderate tricompartmental osteoarthritis is noted. There is tiny suprapatellar joint effusion. The soft tissues appear grossly unremarkable. IMPRESSION: Moderate tricompartmental osteoarthritis of the left knee. Tiny suprapatellar joint effusion. Electronically signed by: Chantale Matos MD 02/01/2019 11:08 AM CDT
--- NOTE | 2019-02-01 11:11 | RAD ---
EXAM DESCRIPTION: Pelvis,2 or More Views CLINICAL HISTORY: 73 years Female, fall COMPARISON: None. TECHNIQUE: 2 views of the pelvis were obtained. FINDINGS: Degenerative changes identified in the visualized lower lumbar spine, bilateral sacroiliac joints and hip joints. The pelvic ring is intact. No acute traumatic abnormality is identified. IMPRESSION: No acute traumatic abnormality is noted in the pelvis. Electronically signed by: Chantale Matos MD 02/01/2019 11:09 AM CDT
[2019-02-01] MEDS ORDERED: MAGNESIUM SULFATE PREMIX 2GM 50 ML IVPB ONE (11:37)
[2019-02-01] MEDS: MAGNESIUM SULFATE PREMIX 2GM 2 GM in PREMIX BAG 1 BAG IVPB ONE (11:41)
[2019-02-01 13:47] VITALS: BP 116/60; O2SAT 98
== END 2019-02-01 13:47 | disposition short-term general hospital (02) ==
LOC: ER 07:18
DX: S01.01XA Laceration without foreign body of scalp, initial encounter (principal); E87.1 Hypo-osmolality and hyponatremia; I48.91 Unspecified atrial fibrillation; M47.812 Spondylosis without myelopathy or radiculopathy, cervical region; M17.12 Unilateral primary osteoarthritis, left knee; M16.0 Bilateral primary osteoarthritis of hip; I25.2 Old myocardial infarction; I25.10 Atherosclerotic heart disease of native coronary artery without angina pectoris; I50.9 Heart failure, unspecified; I11.0 Hypertensive heart disease with heart failure; K21.9 Gastro-esophageal reflux disease without esophagitis; W01.198A Fall on same level from slipping, tripping and stumbling with subsequent striking against other object, initial encounter; Y92.002 Bathroom of unspecified non-institutional (private) residence as the place of occurrence of the external cause; Z85.42 Personal history of malignant neoplasm of other parts of uterus; Z95.5 Presence of coronary angioplasty implant and graft; Z79.01 Long term (current) use of anticoagulants; Z79.899 Other long term (current) drug therapy
CPT/HCPCS: 36415; 70450; 71045; 71111; 72125; 72190; 73551; 73560; 80048; 80076; 81001; 82550; 82553; 83605; 84443; 84484; 85025; 85610; 85730; 90471; 90715; 93005; J0690; J3475

== ENCOUNTER → 2019-02-15 | Outpatient (CLI) | payer MEDICARE, MEDICAID | LOC: LAB.O 15:41 | PROVIDERS: ATTEND Nurse Practitioner Family | DX: I50.9 Heart failure, unspecified (principal) ==

== ENCOUNTER 2019-03-04 15:06 | Inpatient (IN) | payer MEDICARE, MEDICAID ==
[2019-03-04] MEDS ORDERED: IPRATROPIUM/ALBUTEROL 3 ML VIAL NEB ONE (15:29)
--- NOTE | 2019-03-04 15:53 | RAD ---
PROVIDED CLINICAL HISTORY/REASON FOR EXAM: cough, mild hypoxia, sob Findings: Number of images: One Location: Frontal chest Cardiomegaly. Pulmonary vascular congestion. No large pleural effusion. No pneumothorax. Increased patchy airspace disease bilaterally. No acute osseous abnormality. Atherosclerotic plaque in the thoracic aorta. IMPRESSION: 1. Cardiomegaly with pulmonary vascular congestion. 2. Patchy bilateral airspace disease likely pulmonary edema and/or pneumonia. Electronically signed by: Brad Cody MD 03/04/2019 3:51 PM CDT
[2019-03-04] MEDS ORDERED: IBUPROFEN 200 MG TAB PO ONE (16:08)
[2019-03-04] MEDS ORDERED: CEFEPIME 1 GM in SODIUM CHLORIDE 0.9% 50ML 50 ML IVPB ONE (16:10)
[2019-03-04] MEDS ORDERED: AZITHROMYCIN IV 500 MG in SODIUM CHLORIDE 0.9% 250ML 250 ML IVPB ONE (16:10)
[2019-03-04] MEDS ORDERED: FUROSEMIDE INJ 40 MG/4 ML VIAL IV ONE (16:12)
[2019-03-04] MEDS ORDERED: SODIUM CHLORIDE 0.9% 50ML 50 ML ONE (16:17)
[2019-03-04] MEDS ORDERED: CEFEPIME 2 GM VIAL ONE (16:17)
[2019-03-04] MEDS ORDERED: SODIUM CHLORIDE 0.9% 250ML 250 ML ONE (16:49)
[2019-03-04] MEDS ORDERED: AZITHROMYCIN IV 500 MG VIAL IVPB ONE (16:49)
--- NOTE | 2019-03-04 17:00 | ED.PDOC ---
History of Present Illness - General Chief Complaint: General Time Seen by Provider: 03/04/19 15:23 Source: patient Exam Limitations: no limitations - History of Present Illness Initial Comments: the patient is a 73-year-old female presenting to emergency room secondary to cough, fever, body achesand increasing shortness of breath over the last 3-4 days. She has had multiple episodes of pneumonia in the past. She does have a significant history of CHF exacerbations. She is feeling weak. She has been in a fdc since her fall about a month ago secondary to weakness. She still has the sutures in her scalp from the fall about a month ago. They have been been intentionally left in placeaccording to her physician's instructions. The patient has been on oxygen in the past but has not been on it recently. She does require currently with oxygen saturations desaturating down to around 85% while on room air. There is some questionable history of reactive airway with previous pneumonia episodes. She does see Dr. Braswell for her CHF. She has known atrial fibrillation and is currently on a blood thinner. Timing/Duration: other - 3-4 days Severity: moderate Improving Factors: nothing Worsening Factors: nothing Associated Symptoms: cough, fever/chills, loss of appetite, malaise, shortness of breath, weakness Allergies/Adverse Reactions: Allergies NO KNOWN ALLERGY Allergy (Verified 09/05/16 13:36) Home Medications: Ambulatory Orders Apixaban [Eliquis] 2.5 mg PO BID 09/05/16 Lisinopril 20 mg PO DAILY 09/05/16 Metoprolol Succinate [Metoprolol Succinate ER] 50 mg PO DAILY 09/05/16 Potassium Chloride Tab [Micro-K] 10 meq PO DAILYBK #30 tab 09/08/16 Atorvastatin Calcium 40 mg PO BEDTIME 04/21/18 Furosemide Tab [Lasix Tab] 40 mg PO DAILY 04/21/18 Spironolactone 50 mg PO BID 04/21/18 hydrALAZINE HCl [(None)] 25 mg PO TID 04/21/18 Nitroglycerin Patch 0.4 mg/Hr [Nitro-Dur PATCH 0.4 mg/hour] 0.4 mg TOP QD 02/01/19 Acetaminophen [Tylenol] 1,000 mg PO BEDTIME 03/04/19 Aspirin [Aspirin Low Strength] 81 mg PO DAILY 03/04/19 Clonidine HCl 0.1 mg PO Q12HR 03/04/19 Cyanocobalamin [Vitamin B 12] 500 mcg PO DAILY 03/04/19 Gabapentin 300 mg PO TID 03/04/19 Review of Systems - Review of Systems Constitutional: States: fever, malaise, weakness EENTM: States: nose congestion, throat pain Respiratory: States: cough, short of breath, wheezing - occasional Cardiology: States: edema - chronic but not worse than normal Gastrointestinal/Abdominal: States: no symptoms reported Genitourinary: States: no symptoms reported Musculoskeletal: States: see HPI - hronic pain issues Skin: States: no symptoms reported Neurological: States: no symptoms reported Endocrine: States: no symptoms reported All other Systems: No Change from Baseline Past Medical History (General) - Patient Medical History Hx Seizures: No Hx Stroke: No Hx Asthma: No Hx of COPD: No Hx Cardiac Disorders: Yes - recent [place],CAD Hx Congestive Heart Failure: Yes Hx Pacemaker: No Hx Hypertension: Yes Hx Diabetes: No Hx Gastroesophageal Reflux: Yes Hx Cancer: Yes - Uterine-remission Hx MRSA: No Surgical History: no surgical history - Vaccination History Hx Tetanus, Diphtheria Vaccination: No Hx Influenza Vaccination: Yes Hx Pneumococcal Vaccination: Yes - Social History Hx Tobacco Use: No Hx Alcohol Use: No Hx Substance Use: No Hx Substance Use Treatment: No Hx Depression: No Hx Physical Abuse: No Hx Emotional Abuse: No - Activities of Daily Living Intermediate/Assisted Living (if applicable):: [facility] - Female History Patient : No Family Medical History - Family History Mother Family History: Unknown Living Status: Hx Family Cancer: Yes - lungs-mom Physical Exam - Physical Exam General Appearance: Alert, Ill Appearing Eye Exam: bilateral normal Ears, Nose, Throat: hearing grossly normal, normal ENT inspection - oor d entition Neck: full range of motion, supple Respiratory: no respiratory distress, no accessory muscle use, rales, wheezing - occasional scattered Cardiovascular/Chest: normal peripheral pulses, other - regular rate and irregular rhythm. Peripheral Pulses: radial,right: 2+, radial,left: 2+ Gastrointestinal/Abdominal: non tender - obese, soft Rectal Exam: deferred Back Exam: no CVA tenderness, no vertebral tenderness Extremity: normal range of motion, non-tender, no calf tenderness, normal capillary refill, pedal edema Neurologic: appraiser II-XII nml as tested, alert, normal mood/affect, oriented x 3 Skin Exam: pallor Comments: Vital Signs - 24 hr 03/04/19 03/04/19 03/04/19 15:14 15:49 15:58 Temperature 100.5 F H Pulse Rate 65 72 Pulse Rate [ 75 Left Apical] Respiratory 20 22 20 Rate Blood Pressure 141/94 [Left Arm] O2 Sat by Pulse 90 L 95 Oximetry 03/04/19 16:07 Temperature 101.0 F H Pulse Rate Pulse Rate [ 71 Left Apical] Respiratory 20 Rate Blood Pressure 120/86 [Left Arm] O2 Sat by Pulse 92 L Oximetry Progress - Progress Progress: 03/04/19 17:05 the patient is a 73-year-old female presenting to the emergency room secondary to fever, cough and shortness of breath. She appears to have a bilateral fdc acquired pneumonia that is triggering a CHF exacerbation additionally. She is receiving 40 mg of IV Lasix. She is also being placed on cefepime and azithromycin. Blood and sputum cultures are being done. Steroids are for the moment being avoided in order to allow for better diuresis. Supplemental oxygen is being used which is making the patient more comfortable. She also received 1 breathing treatment. She does require the oxygen to maintain oxygen saturations consistently above 90%. Additionally the patient has increasing globulin fraction over the past year or so. I discussed the patient with oncology from [facility], who recommended follow-up after the acute processes above are dealt with for evaluation for possible multiple myeloma-type processes. Admit for continued care. 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 - Results/Orders Results/Orders: 03/04/19 15:38 BLOOD CULTURE Stat 03/04/19 16:10 Azithromycin IV [Zithromax IV] 500 mg Sodium Chloride 0.9% 250Ml [NS 250ml] 250 ml IVPB ONCE SPUTUM CULTURE Stat 03/04/19 16:15 EKG STAT Laboratory Results - last 24 hr 03/04/19 03/04/19 03/04/19 15:38 15:38 15:38 WBC 14.7 H RBC 2.72 L Hgb 9.0 L Hct 27.3 L MCV 100.3 H MCH 32.9 H MCHC 32.8 L RDW 15.6 H Plt Count 290 MPV 7.6 Absolute Neuts (auto) 12.80 H Absolute Lymphs (auto) 0.50 L Absolute Monos (auto) 1.30 H Absolute Eos (auto) 0.00 Absolute Basos (auto) 0.10 Neutrophils % 86.9 H Lymphocytes % 3.4 L Monocytes % 8.9 Eosinophils % 0.0 L Basophils % 0.8 PT 14.4 H INR 1.45 H PTT (SP) 28.2 D-Dimer, Quantitative 1.91 H* Sodium 133 L Potassium 4.6 Chloride 103 Carbon Dioxide 20 L Anion Gap 14.6 BUN 30 H Creatinine 1.75 H BUN/Creatinine Ratio 17.1 Random Glucose 126 H Serum Osmolality 274.1 L Calcium 9.6 Magnesium 1.7 L Total Bilirubin 1.2 H AST 26 ALT 11 Alkaline Phosphatase 85 Creatine Kinase 55 CK-MB (CK-2) 1.2 CK-MB (CK-2) % Not Reportable Troponin I 0.06 H B-Natriuretic Peptide 4390.0 H* Serum Total Protein 10.2 H Albumin 2.9 L Globulin 7.3 H Albumin/Globulin Ratio 0.4 L TSH 4.08 chest x-ray is consistent with pneumonia and pulmonary edema. EKG shows atrial fibrillation with a controlled rate of 82 bpm. There is a right bundle branch block. Difficult to interpret otherwise. these changes are consistent with previous EKGs. Departure - Departure Clinical Impression: assisted-acquired pneumonia Acute exacerbation of CHF (congestive heart failure) Qualifiers: Heart failure type: unspecified Qualified Code(s): I50.9 - Heart failure, unspecified Disposition: Admit Patient Condition: Serious Departure Forms: ED Discharge - Pt. Copy, Patient Portal Self Enrollment Referrals: Michael Dillon MD [Family Provider] - 1-2 Weeks Home Medications: Ambulatory Orders Apixaban [Eliquis] 2.5 mg PO BID 09/05/16 Lisinopril 20 mg PO DAILY 09/05/16 Metoprolol Succinate [Metoprolol Succinate ER] 50 mg PO DAILY 09/05/16 Potassium Chloride Tab [Micro-K] 10 meq PO DAILYBK #30 tab 09/08/16 Atorvastatin Calcium 40 mg PO BEDTIME 04/21/18 Furosemide Tab [Lasix Tab] 40 mg PO DAILY 04/21/18 Spironolactone 50 mg PO BID 04/21/18 hydrALAZINE HCl [(None)] 25 mg PO TID 04/21/18 Nitroglycerin Patch 0.4 mg/Hr [Nitro-Dur PATCH 0.4 mg/hour] 0.4 mg TOP QD 02/01/19 Acetaminophen [Tylenol] 1,000 mg PO BEDTIME 03/04/19 Aspirin [Aspirin Low Strength] 81 mg PO DAILY 03/04/19 Clonidine HCl 0.1 mg PO Q12HR 03/04/19 Cyanocobalamin [Vitamin B 12] 500 mcg PO DAILY 03/04/19 Gabapentin 300 mg PO TID 03/04/19 Decision To Admit - Decistion To Admit Decision to Admit Reason: Medical Nature Decision to Admit Date: 03/04/19 Decision to Admit Time: 17:07
--- NOTE | 2019-03-04 17:08 | HP ---
SUPERVISING PHYSICIAN: Reynold Groves MD CHIEF COMPLAINT: Shortness of breath and generalized weakness. HISTORY OF PRESENT ILLNESS: This is a 73-year-old female patient who came to the Emergency Room secondary to cough, fever, body aches and increasing shortness of breath over the prior week. It has progressed over the last 24 hours to the point that she had to come to the Emergency Room. She has had multiple episodes of pneumonia in the past. She does have a significant history of congestive heart failure exacerbations. About a month ago, she actually fell at home and had a traumatic fall that resulted in a laceration to her scalp. She is presently at [facility] for some physical therapy and is there from week to week until she can return home. She does have home oxygen, but does not wear it all the time, but in the last several days, she has required it 24 hours a day and her oxygen saturations actually went down to the mid-80s if she was on room air. She also has a history of asthma. She also has a history of atrial fibrillation and currently on Eliquis therapy. In the Emergency Room, her initial vital signs were temperature 100.5, heart rate 75, blood pressure 141/94, respiratory rate 22, O2 saturation 90% on 3 liters nasal cannula. Lab was drawn and her WBCs were 14,700, hemoglobin 9, hematocrit 27.3. She has a left shift on her differential. D-dimer was elevated at 1.91. We were unable to do a CTA due to her kidney function. Her sodium was 133, potassium 4.6, chloride 103, carbon dioxide 20, BUN 30, creatinine 1.75. Her baseline creatinine is about 1.8 to 2. She does see Dr. Granger, silverlight developer, in [place] and had actually seen him the day prior to her admission. Magnesium was 1.7, bilirubin 1.2, BNP 4,390. Serum total protein 10.2, albumin 2.9, globulin 7.3. Urinalysis was unremarkable with the exception of 2+ budding yeast. Her chest x-ray showed 1) Cardiomegaly with pulmonary vascular congestion. 2) Patchy bilateral airspace disease, likely pulmonary edema and/or pneumonia. Blood cultures were obtained. She was given some cefepime and azithromycin. She was given several breathing treatments as well as judicious fluids. I was called for hospital admission. PAST MEDICAL HISTORY: 1. Chronic renal insufficiency. 2. Coronary artery disease. 3. Acute myocardial infarction in 2012, 2014 and 2017. 4. Hyperlipidemia. 5. Hypertension. 6. Gastroesophageal reflux disease. 7. History of abdomen. PAST SURGICAL HISTORY: 1. Multiple stent placements in 2008 and 2016. CURRENT MEDICATIONS: 1. Eliquis. 2. Acetaminophen. 3. Cyanocobalamin. 4. Aspirin. 5. Atorvastatin. 6. Clonidine. 7. Furosemide. 8. Gabapentin. 9. Hydralazine. 10. Lisinopril. 11. Metoprolol. 12. Nitroglycerin patch. 13. Spironolactone. ALLERGIES: NO KNOWN DRUG ALLERGIES. FAMILY HISTORY: Unremarkable. SOCIAL HISTORY: She is retired. She lives at [facility] temporarily for physical therapy. She has 3 children. There is no history of any tobacco, ETOH or illicit drug use. REVIEW OF SYSTEMS: GENERAL: Positive for chills and fever. Negative for weight changes. HEENT: Negative for sinus symptoms, ear pain, vision changes or sore throat. RESPIRATORY: As per history of present illness. CARDIAC: Negative for chest pain, palpitations or tachycardia. GASTROINTESTINAL: Negative for nausea, vomiting, diarrhea, constipation. GENITOURINARY: Negative for hematuria, dysuria or polyuria. SKIN: Negative for lesions or rashes. She is positive for that recent traumatic fall with stitches on the right side of her head. NEUROLOGIC: Negative for headache or seizures. Positive for weakness. PHYSICAL EXAMINATION: VITAL SIGNS: Temperature 97.8. Heart rate 59. Blood pressure 103/73. Respiratory rate 18. O2 saturation 97% on 2 liters nasal cannula. GENERAL: This is a 73-year-old female patient who is lying in her hospital bed. She is in no acute distress. HEENT: Normocephalic. There is some bruising to her right jaw. The ecchymosis appears to be old. She does have some stitches in the top of her head in her hairline from the previous traumatic fall. Pupils are equal and reactive. Oropharynx is clear. NECK: Supple without mass. No discernible jugular venous distention. RESPIRATORY: Diminished at the bases, but no wheezing noted. She does have a few scattered crackles and rales in the upper portions of her lung field. CHEST: There is equal rise and fall of the chest with inspiration and expiration. CARDIOVASCULAR: Regular rate, times slightly bradycardic, irregular rhythm. 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 GASTROINTESTINAL: Abdomen is soft, nondistended, nontender. Bowel sounds are positive. EXTREMITIES: Trace pedal edema bilaterally. Bilateral pedal pulses are palpable at +2. NEUROLOGIC: She is somewhat lethargic, but she awakens easily and answers questions appropriately. Cranial nerves II-XII are grossly intact. LABORATORY: Labs and films are as per history of present illness. IMPRESSION: 1. Sepsis related to bilateral pneumonia with a temperature of 101, respiratory rate 22, O2 saturation 85%, WBC 14,700 in the Emergency Room. 2. Congestive heart failure with acute exacerbation. She has pulmonary congestion on her chest x-ray and she has a BNP greater than 4400. 3. Recent traumatic fall approximately one month ago. She was hospitalized and is now in [facility] for physical therapy. 4. Chronic renal insufficiency with a baseline creatinine of 1.8 to 2. 5. History of severe electrolyte imbalance secondary to her chronic renal problems, significantly hyponatremia. 6. Coronary artery disease. She is followed by Dr. Braswell. 7. Gastroesophageal reflux disease. 8. History of myocardial infarction times 3 with stent placements. PLAN: We will admit the patient to the hospital. I have initiated the pneumonia guidelines. She will have p.r.n. and scheduled breathing treatments with aggressive pulmonary hygiene. I will continue with the cefepime and Zithromax. I will speak to Dr. Granger tomorrow and give him an update on her case for any recommendations. She has also received some IV Lasix and hopefully she will diurese overnight. I will repeat her lab in the morning. I have also ordered a consult with physical therapy. I will repeat her chest x-ray as well. She will continue on her Eliquis which should be sufficient for her DVT prophylaxis. I have put her on Protonix for ulcer prophylaxis. We will continue to monitor the patient closely and follow as needed. #[id number] [facility] [place]
[2019-03-04] MEDS ORDERED: LEVALBUTEROL NEBS 1.25 MG/3 ML VIAL INH PRN (19:48)
[2019-03-04] MEDS ORDERED: SODIUM CHLORIDE 0.9% (FLUSH) 10 ML SYG IV PRN (19:48)
[2019-03-04] MEDS ORDERED: ONDANSETRON INJ 4 MG/2 ML VIAL IV PRN (19:57)
[2019-03-04] MEDS: IV SET AND CAP CHANGE INJ INJ SCH (20:45)
[2019-03-04] MEDS ORDERED: NON-FORMULARY MEDICATION 1 EA MIS (Atorvastatin Calcium [Atorvastatin Calcium] 40 MG) PO SCH (21:00)
[2019-03-04] MEDS: LEVALBUTEROL NEBS 1.25 MG/3 ML VIAL INH SCH (21:06)
[2019-03-04] MEDS ORDERED: ATORVASTATIN 20 MG TAB PO ONE (22:02)
[2019-03-04] MEDS: cloNIDine HCL 0.1 MG TAB PO SCH (22:05)
[2019-03-04] MEDS: GABAPENTIN 300 MG CAP PO SCH (22:05)
[2019-03-04] MEDS: APIXABAN 2.5 MG TAB PO SCH (22:05)
[2019-03-04] MEDS: SODIUM CHLORIDE 0.9% (FLUSH) 10 ML SYG IV SCH (22:05)
[2019-03-04] MEDS: SPIRONOLACTONE 25 MG TAB PO SCH (22:05)
[2019-03-05] MEDS ORDERED: ceFAZolin SODIUM 1 GM VIAL ONE (04:17)
[2019-03-05] MEDS ORDERED: SODIUM CHL 0.9% 50ML MIN-BAG+ 50 ML IVPB ONE ×2 (04:18→19:44)
[2019-03-05] MEDS ORDERED: CEFEPIME IVPB SCH (06:00)
[2019-03-05] MEDS ORDERED: CEFEPIME 2 GM VIAL ONE ×2 (06:00→19:43)
[2019-03-05] MEDS ORDERED: SODIUM CHL 0.9% IVPB SCH (06:00)
[2019-03-05] MEDS: PANTOPRAZOLE SODIUM TAB 40 MG PO SCH (06:03)
[2019-03-05] MEDS ORDERED: PANTOPRAZOLE SODIUM IV 40 MG VIAL IV SCH (06:30)
--- NOTE | 2019-03-05 08:00 | RAD ---
EXAM DESCRIPTION: Chest,1 View CLINICAL HISTORY: 73 years Female Pneumonia COMPARISON: Portable chest dated 03/04/2019 TECHNIQUE: Portable AP view of the chest is obtained. FINDINGS IN THE CHEST: Heart: Allowing for magnification factors related to AP portable technique and body habitus, the heart is mildly enlarged. Vasculature: [There is mild tortuosity and atherosclerosis of the aorta. ] There is no evidence of aortic aneurysm or acute findings. The pulmonary vascularity is normal. Mediastinum: Unremarkable otherwise. No evidence of mass or adenopathy. Lungs: There has been improvement in aeration of the left lung with near complete resolution of previously demonstrated alveolar opacification in the left lower lung. Patchy alveolar opacification persists in the right lung primarily in the right upper and mid harper Pleura: There are no pleural effusions. There are no pneumothoraces. Osseous structures: No evidence of acute fracture or other significant osseous abnormalities. Tubes and catheters: None Chest wall: Unremarkable. Visualized Abdomen: Unremarkable. IMPRESSION: Persistent atelectasis and/or pneumonia in the right lung. Follow-up films to resolution are recommended to exclude underlying mass. Improved aeration in the left lung with near complete resolution of previously demonstrated alveolar opacification in the left lower lung. Remainder of findings as described above. Electronically signed by: Kim Su MD 03/05/2019 7:59 AM CDT
[2019-03-05] MEDS ORDERED: LISINOPRIL 10 MG TAB ONE (08:26)
[2019-03-05] MEDS ORDERED: METOPROLOL SUCCINATE XL 25 MG TAB PO ONE (08:27)
[2019-03-05] MEDS: LEVALBUTEROL NEBS 1.25 MG/3 ML VIAL INH SCH ×4 (08:29→19:42)
[2019-03-05] MEDS ORDERED: FUROSEMIDE 40 MG TAB PO SCH (09:00)
[2019-03-05] MEDS ORDERED: NON-FORMULARY MEDICATION 1 EA MIS (Lisinopril [Lisinopril] 20 MG) PO SCH (09:00)
[2019-03-05] MEDS ORDERED: FUROSEMIDE INJ 40 MG/4 ML VIAL IV ONE (09:46)
[2019-03-05] MEDS ORDERED: diphenhydrAMINE HCL 50 MG/ML VIAL IV ONE (09:46)
[2019-03-05] MEDS ORDERED: ACETAMINOPHEN 325 MG TAB PO ONE (09:46)
[2019-03-05] MEDS: APIXABAN 2.5 MG TAB PO SCH ×2 (09:54→20:14)
[2019-03-05] MEDS: cloNIDine HCL 0.1 MG TAB PO SCH ×2 (09:55→21:41)
[2019-03-05] MEDS: SPIRONOLACTONE 25 MG TAB PO SCH ×2 (09:55→20:13)
[2019-03-05] MEDS: ASPIRIN (CHEWABLE) 81 MG TAB PO SCH (09:55)
[2019-03-05] MEDS: GABAPENTIN 300 MG CAP PO SCH ×3 (09:55→20:15)
[2019-03-05] MEDS: FUROSEMIDE INJ 40 MG/4 ML VIAL IV SCH ×2 (09:56→16:55)
[2019-03-05] MEDS: SODIUM CHLORIDE 0.9% (FLUSH) 10 ML SYG IV SCH ×2 (09:56→20:45)
[2019-03-05] MEDS: NYSTATIN POWDER 15GM BTTL TOP SCH ×4 (09:56→20:15)
[2019-03-05] MEDS: METOPROLOL SUCCINATE XL 50 MG TAB PO SCH (09:57)
[2019-03-05] MEDS ORDERED: SODIUM CHLORIDE 0.9% 500ML 500 ML IVS SCH (10:00)
[2019-03-05] MEDS ORDERED: SODIUM CHLORIDE 0.9% 250ML 250 ML ONE (11:05)
[2019-03-05] MEDS ORDERED: AZITHROMYCIN IV 500 MG VIAL IVPB ONE (11:06)
[2019-03-05] MEDS: NITROGLYCERIN 0.4 MG/HR PATCH TOP SCH (11:35)
[2019-03-05] MEDS: AZITHROMYCIN IV 250 MG in SODIUM CHLORIDE 0.9% 250ML 250 ML IVPB SCH (11:35)
[2019-03-05] MEDS ORDERED: AZITHROMYCIN IV 500 MG in SODIUM CHLORIDE 0.9% 250ML 250 ML IVPB SCH (12:00)
[2019-03-05] MEDS: ATORVASTATIN 20 MG TAB PO SCH (20:14)
[2019-03-05] MEDS: guaiFENesin ER TAB 600 MG TAB PO SCH (20:15)
[2019-03-05] MEDS: SODIUM CHL 0.9% IVPB SCH (20:43)
[2019-03-05] MEDS: CEFEPIME IVPB SCH (20:43)
[2019-03-05] MEDS: REMOVE OLD PATCH TOP SCH (20:44)
--- NOTE | 2019-03-05 22:59 | PN ---
DATE: 03/05/19 SUPERVISING PHYSICIAN: Reynold Groves M.D. SUBJECTIVE: The patient is lying in bed asleep. She awakens easily. She said she is quite weak today and I discussed with her that she would get blood this morning. Otherwise no complaints of chest pain, nausea or vomiting. She does have some shortness of breath and she continues to cough quite frequently. OBJECTIVE: VITAL SIGNS: Temperature 97.7, heart rate 59, blood pressure 198/61, respiratory rate 16, O2 sat 96% on 2 liters nasal cannula. RESPIRATORY: Diminished breath sounds throughout with a few scattered rhonchi. CARDIAC: Regular rate, irregular rhythm. GASTROINTESTINAL: Abdomen is soft, nondistended, non-tender. Bowel sounds are positive. NEUROLOGIC: She is awake and alert. LABORATORY: WBCs 13,500 with hemoglobin 7.9, hematocrit 24.2, neutrophils 83.5%. Electrolytes are basically within normal limits. BUN 34, creatinine 1.69. Preliminary blood cultures show no growth after 24 hours. Chest x-ray shows persistent atelectasis and/or pneumonia of the right lung. Followup films to resolution are recommended to exclude underlying mass. Improved aeration in the left lung near complete resolution of previously demonstrated alveolar opacification in the left lower lung. Remainder of findings as described above. All other labs and films have been reviewed via the EMR. ASSESSMENT: 1. Sepsis related to bilateral pneumonia with a temperature of 101, respiratory rate 22, O2 saturation 85%, WBC 14,700 in the Emergency Room. 2. Congestive heart failure with acute exacerbation. She has pulmonary congestion on her chest x-ray and she has a BNP greater than 4400. 3. Recent traumatic fall approximately one month ago. She was hospitalized and is now in [facility] for physical therapy. 4. Chronic renal insufficiency with a baseline creatinine of 1.8 to 2. 5. History of severe electrolyte imbalance secondary to her chronic renal problems, significantly hyponatremia. 6. Coronary artery disease. She is followed by Dr. Braswell. 7. Gastroesophageal reflux disease. 8. History of myocardial infarction times 3 with stent placements. 9. Anemia requiring 2 units of packed red blood cells today. PLAN: We will continue present supportive care. She will continue with her antibiotics and we will monitor her cultures as they become available. I have ordered physical therapy as well as lab for in the morning. I will also order some Mucinex. I talked to Dr. Granger this morning and he was fine with her antibiotic regimen except he requested that her Zithromax be decreased to 250 mg daily. He would like to see her in followup after she is discharged. I will hold on chest x-ray for in the morning and repeat it on Friday. Otherwise will continue to monitor closely and follow as needed. #[id number] MTDD
[2019-03-06] MEDS: PANTOPRAZOLE SODIUM TAB 40 MG PO SCH (06:33)
[2019-03-06] MEDS ORDERED: MAGNESIUM SULFATE PREMIX 2GM 2 GM in PREMIX BAG 1 BAG IVPB ONE (08:28)
[2019-03-06] MEDS: LEVALBUTEROL NEBS 1.25 MG/3 ML VIAL INH SCH ×4 (08:37→20:03)
[2019-03-06] MEDS ORDERED: SODIUM CHL 0.9% 50ML MIN-BAG+ 50 ML IVPB ONE ×2 (08:40→19:23)
[2019-03-06] MEDS ORDERED: MAGNESIUM SULFATE PREMIX 2GM 50 ML IVPB ONE (08:41)
[2019-03-06] MEDS ORDERED: CEFEPIME 2 GM VIAL ONE ×2 (08:41→19:24)
[2019-03-06] MEDS: ASPIRIN (CHEWABLE) 81 MG TAB PO SCH (10:27)
[2019-03-06] MEDS: SPIRONOLACTONE 25 MG TAB PO SCH ×2 (10:27→21:08)
[2019-03-06] MEDS: GABAPENTIN 300 MG CAP PO SCH ×3 (10:28→21:07)
[2019-03-06] MEDS: guaiFENesin ER TAB 600 MG TAB PO SCH ×2 (10:28→21:08)
[2019-03-06] MEDS: NITROGLYCERIN 0.4 MG/HR PATCH TOP SCH (10:28)
[2019-03-06] MEDS: LISINOPRIL 10 MG TAB PO SCH (10:28)
[2019-03-06] MEDS: cloNIDine HCL 0.1 MG TAB PO SCH ×2 (10:28→21:08)
[2019-03-06] MEDS: APIXABAN 2.5 MG TAB PO SCH ×2 (10:28→21:09)
[2019-03-06] MEDS: METOPROLOL SUCCINATE XL 50 MG TAB PO SCH (10:28)
[2019-03-06] MEDS: CEFEPIME IVPB SCH ×2 (11:15→21:05)
[2019-03-06] MEDS: NYSTATIN POWDER 15GM BTTL TOP SCH ×4 (11:15→21:14)
[2019-03-06] MEDS: SODIUM CHL 0.9% IVPB SCH ×2 (11:15→21:05)
[2019-03-06] MEDS: SODIUM CHLORIDE 0.9% (FLUSH) 10 ML SYG IV SCH ×2 (11:15→21:12)
[2019-03-06] MEDS ORDERED: AZITHROMYCIN IV 500 MG VIAL IVPB ONE (11:32)
[2019-03-06] MEDS ORDERED: SODIUM CHLORIDE 0.9% 250ML 250 ML ONE (11:32)
[2019-03-06] MEDS: AZITHROMYCIN IV 250 MG in SODIUM CHLORIDE 0.9% 250ML 250 ML IVPB SCH (12:05)
--- NOTE | 2019-03-06 15:57 | PN ---
DATE: 03/06/19 SUPERVISING PHYSICIAN: Reynold Groves M.D. SUBJECTIVE: The patient is lying in bed. She feels much better today. She is more alert and with it. She has no complaints of shortness of breath, chest pain, nausea or vomiting. We did discuss that she has refused her physical therapy today and she just felt like she did not want to start that up if she got back to [facility]. OBJECTIVE: Temperature 98.4, heart rate 63, blood pressure 135/83. She did have a blood pressure that was as low as 99/64. Respiratory rate 20, it has gone as high as 24. O2 sat is 99% on 2 liters. RESPIRATORY: Slightly diminished at the bases but no rales, rhonchi or crackles. CARDIAC: Regular rate and rhythm. GASTROINTESTINAL: Abdomen is soft. It is rounded. It is nondistended. Bowel sounds are positive. NEUROLOGIC: She is awake, alert and oriented times 3. LABORATORY: WBCs have improved slightly to 12,100 with hemoglobin 9.3, hematocrit 28.2. She does have a left shift on her differential. Sodium 133, magnesium 1.7. Her other electrolytes are within normal limits. BUN 43, creatinine is slightly up at 2. Preliminary blood cultures show no growth after 24 hours. All other labs and films have been reviewed via the EMR. ASSESSMENT: 1. Sepsis related to bilateral pneumonia with a temperature of 101, respiratory rate 22, O2 saturation 85%, WBC 14,700 in the Emergency Room. 2. Congestive heart failure with acute exacerbation. She has pulmonary congestion on her chest x-ray and she has a BNP greater than 4400. 3. Recent traumatic fall approximately one month ago. She was hospitalized and is now in [facility] for physical therapy. 4. Chronic renal insufficiency with a baseline creatinine of 1.8 to 2. 5. History of severe electrolyte imbalance secondary to her chronic renal problems, significantly hyponatremia. 6. Coronary artery disease. She is followed by Dr. Braswell. 7. Gastroesophageal reflux disease. 8. History of myocardial infarction times 3 with stent placements. 9. Anemia requiring 2 units of packed red blood cells today. PLAN: We will continue present supportive care. Her creatinine is slightly worse today and I have stopped her Lasix. If it is worse tomorrow, I will call Dr. Granger, net mender in [place], to get his recommendations on her treatment. She has received some magnesium supplementation today. I have also repeated her lab and a chest x-ray in the morning and encouraged good pulmonary hygiene. I have also encouraged her to get up and do her physical therapy so she does not lose any of her treatment from previously. Will continue to monitor closely and follow as needed. #[id number] MTDD
[2019-03-06] MEDS: ATORVASTATIN 20 MG TAB PO SCH (21:05)
[2019-03-06] MEDS: REMOVE OLD PATCH TOP SCH (21:13)
[2019-03-07] MEDS: PANTOPRAZOLE SODIUM TAB 40 MG PO SCH (05:52)
--- NOTE | 2019-03-07 06:22 | RAD ---
CLINICAL HISTORY: pna COMPARISON: March 05, 2019. TECHNIQUE: XR CHEST 1 VIEW 03/07/2019 5:00 AM CDT FINDINGS: The heart is enlarged. There is extensive airspace disease in the right upper lobe and right perihilar region. There is no pleural effusion. There is no pneumothorax. There are no acute osseous findings. IMPRESSION: Worsening right-sided pneumonia. Electronically signed by: Davon Faustin MD 03/07/2019 6:18 AM CDT
[2019-03-07] MEDS ORDERED: SODIUM CHL 0.9% 50ML MIN-BAG+ 50 ML IVPB ONE ×2 (07:53→19:44)
[2019-03-07] MEDS ORDERED: CEFEPIME 2 GM VIAL ONE ×2 (07:54→19:44)
[2019-03-07] MEDS: SODIUM CHLORIDE 0.9% (FLUSH) 10 ML SYG IV SCH ×2 (08:36→20:11)
[2019-03-07] MEDS: SODIUM CHL 0.9% IVPB SCH ×2 (08:36→20:12)
[2019-03-07] MEDS: CEFEPIME IVPB SCH ×2 (08:36→20:12)
[2019-03-07] MEDS: SPIRONOLACTONE 25 MG TAB PO SCH ×2 (08:37→20:08)
[2019-03-07] MEDS: APIXABAN 2.5 MG TAB PO SCH ×2 (08:37→20:09)
[2019-03-07] MEDS: GABAPENTIN 300 MG CAP PO SCH ×3 (08:37→20:09)
[2019-03-07] MEDS: ASPIRIN (CHEWABLE) 81 MG TAB PO SCH (08:37)
[2019-03-07] MEDS: guaiFENesin ER TAB 600 MG TAB PO SCH ×2 (08:37→20:09)
[2019-03-07] MEDS: NITROGLYCERIN 0.4 MG/HR PATCH TOP SCH (08:37)
[2019-03-07] MEDS: cloNIDine HCL 0.1 MG TAB PO SCH ×2 (08:37→20:08)
[2019-03-07] MEDS: METOPROLOL SUCCINATE XL 50 MG TAB PO SCH (08:37)
[2019-03-07] MEDS: LISINOPRIL 10 MG TAB PO SCH (08:37)
[2019-03-07] MEDS: NYSTATIN POWDER 15GM BTTL TOP SCH ×4 (08:38→20:11)
[2019-03-07] MEDS: LEVALBUTEROL NEBS 1.25 MG/3 ML VIAL INH SCH ×4 (08:46→20:40)
[2019-03-07] MEDS ORDERED: AZITHROMYCIN IV 500 MG VIAL IVPB ONE ×2 (10:22→11:28)
[2019-03-07] MEDS ORDERED: SODIUM CHLORIDE 0.9% 250ML 250 ML ONE ×2 (10:22→11:27)
[2019-03-07] MEDS: AZITHROMYCIN IV 250 MG in SODIUM CHLORIDE 0.9% 250ML 250 ML IVPB SCH (11:38)
[2019-03-07] MEDS: ACETAMINOPHEN 325 MG TAB PO PRN (18:35)
[2019-03-07] MEDS: ATORVASTATIN 20 MG TAB PO SCH (20:08)
[2019-03-07] MEDS: IV SET AND CAP CHANGE INJ INJ SCH (20:10)
[2019-03-07] MEDS: REMOVE OLD PATCH TOP SCH (20:11)
[2019-03-08] MEDS: ACETAMINOPHEN 325 MG TAB PO PRN ×2 (01:26→18:21)
[2019-03-08] MEDS: PANTOPRAZOLE SODIUM TAB 40 MG PO SCH (05:55)
--- NOTE | 2019-03-08 07:23 | RAD ---
EXAM DESCRIPTION: Chest,1 View CLINICAL HISTORY: Pneumonia FINDINGS/ IMPRESSION: Comparison 03/07/2019 Cardiomegaly. Atherosclerotic aorta. Vascular congestion without edema. Rounded opacity in the medial right upper lobe again seen, not significantly changed, likely pneumonia. Recommend follow-up until clearing. Lung apices are clear of previous spine from 02/01/2019. Small focal opacity right upper lobe inferior lateral is a new finding also likely pneumonia/infection Left lung remains clear Electronically signed by: Donny Owens MD 03/08/2019 7:21 AM CDT
[2019-03-08] MEDS: LEVALBUTEROL NEBS 1.25 MG/3 ML VIAL INH SCH ×4 (07:46→20:09)
[2019-03-08] MEDS ORDERED: SODIUM CHL 0.9% 50ML MIN-BAG+ 50 ML IVPB ONE (07:51)
[2019-03-08] MEDS ORDERED: CEFEPIME 2 GM VIAL ONE ×2 (07:52→19:00)
--- NOTE | 2019-03-08 08:18 | PN ---
SUPERVISING PHYSICIAN: Reynold Groves MD DATE: 03/07/19 SUBJECTIVE: The patient is lying in bed. She continues to refuse to get up or be turned although nursing has been repositioning her quite frequently. She has also asked that the catheter be left in and that she would like to be discharged to [facility] with it. Her complaints are that she continues to be be weak, but she is feeling some better. There are no complaints of shortness of breath, nausea, vomiting, diarrhea or chest pain. OBJECTIVE: VITAL SIGNS: Temperature 98.1. Heart rate 52. Blood pressure 118/75. Respiratory rate 18. O2 saturation 96% on 2 liters nasal cannula. RESPIRATORY: Diminished at the bases. CARDIAC: Regular rate and rhythm. GASTROINTESTINAL: Abdomen is soft, obese, nontender. Bowel sounds are positive. EXTREMITIES: No cyanosis, clubbing or edema. NEUROLOGIC: She is awake, alert and oriented times 3. LABORATORY: WBCs 10.4, hemoglobin 9.6, hematocrit 28.8. Neutrophils 77.3. Sodium slightly low at 132. BUN 31, creatinine improved to 1.47. Preliminary blood cultures show no growth after 3 days. Her chest x-ray shows worsening right sided pneumonia. All other labs and films have been reviewed via the EMR. ASSESSMENT: 1. Sepsis related to bilateral pneumonia with a temperature of 101, respiratory rate 22, O2 saturation 85%, WBC 14,700 in the Emergency Room. 2. Congestive heart failure with acute exacerbation. She has pulmonary congestion on her chest x-ray and she has a BNP greater than 4400. 3. Recent traumatic fall approximately one month ago. She was hospitalized and is now in [facility] for physical therapy. 4. Chronic renal insufficiency with a baseline creatinine of 1.8 to 2. 5. History of severe electrolyte imbalance secondary to her chronic renal problems, significantly hyponatremia. 6. Coronary artery disease. She is followed by Dr. Brsawell. 7. Gastroesophageal reflux disease. 8. History of myocardial infarction times 3 with stent placements. 9. Anemia requiring 2 units of packed red blood cells during this admission. PLAN: We will continue present supportive care. Her creatinine has improved quite a bit since admission. Her Lasix was stopped today. I will restart her on a lower dose of Lasix. Her home Lasix is 40 mg daily and I will put her on 20 mg starting tomorrow. Hopefully, that will not worsen her kidney function. I am somewhat concerned with her worsening chest x-ray. She is on cefepime and azithromycin. Initially, we elected not to put her on vancomycin due to her poor kidney function, but we may need to add that if her chest x-ray does not improve. I have ordered a chest x-ray for in the morning as well as some lab. I will leave her catheter in for now at the patient's request. We will continue to monitor the patient closely and follow as needed. #[id number] MTDD
[2019-03-08] MEDS ORDERED: FUROSEMIDE 10 MG/ML PO SCH (09:00)
[2019-03-08] MEDS: SODIUM CHL 0.9% IVPB SCH ×2 (09:35→20:37)
[2019-03-08] MEDS: CEFEPIME IVPB SCH ×2 (09:35→20:37)
[2019-03-08] MEDS: LISINOPRIL 10 MG TAB PO SCH (09:36)
[2019-03-08] MEDS: guaiFENesin ER TAB 600 MG TAB PO SCH ×2 (09:36→20:37)
[2019-03-08] MEDS: cloNIDine HCL 0.1 MG TAB PO SCH ×2 (09:37→20:36)
[2019-03-08] MEDS: ASPIRIN (CHEWABLE) 81 MG TAB PO SCH (09:37)
[2019-03-08] MEDS: SPIRONOLACTONE 25 MG TAB PO SCH ×2 (09:37→20:36)
[2019-03-08] MEDS: APIXABAN 2.5 MG TAB PO SCH ×2 (09:37→20:37)
[2019-03-08] MEDS: METOPROLOL SUCCINATE XL 50 MG TAB PO SCH (09:37)
[2019-03-08] MEDS: NITROGLYCERIN 0.4 MG/HR PATCH TOP SCH (09:42)
[2019-03-08] MEDS: GABAPENTIN 300 MG CAP PO SCH ×3 (09:42→20:37)
[2019-03-08] MEDS: NYSTATIN POWDER 15GM BTTL TOP SCH ×4 (09:42→20:38)
[2019-03-08] MEDS: SODIUM CHLORIDE 0.9% (FLUSH) 10 ML SYG IV SCH ×2 (09:43→20:40)
[2019-03-08] MEDS ORDERED: SODIUM CHLORIDE 0.9% 250ML 250 ML ONE (11:39)
[2019-03-08] MEDS ORDERED: AZITHROMYCIN IV 500 MG VIAL IVPB ONE (11:39)
[2019-03-08] MEDS: FUROSEMIDE 40 MG TAB PO SCH ×2 (12:24→15:20)
[2019-03-08] MEDS: AZITHROMYCIN IV 250 MG in SODIUM CHLORIDE 0.9% 250ML 250 ML IVPB SCH (12:24)
--- NOTE | 2019-03-08 19:38 | PN ---
DATE: 03/08/19 SUPERVISING PHYSICIAN: Donny Spears M.D. SUBJECTIVE: The patient has no complaints of shortness of breath, nausea or vomiting, or any other symptoms today. She states she has gotten out of bed, however the nurses inform me that she has not only gotten out of bed on her own as she states, but also has been refusing physical therapy. OBJECTIVE: Blood pressure 120/76, heart rate 68, respiratory rate 18, temperature 98.5, oxygen saturation 96%. GENERAL: Ms. Rivera is a 73 year-old female who is in no active distress currently. NEUROLOGIC: She is alert and oriented. LUNGS: Diminished in the bases, but otherwise clear to auscultation bilaterally. CARDIOVASCULAR: Regular rate and rhythm. Normal S1 and S2. ABDOMEN: Obese, soft. Positive bowel sounds. No tenderness to palpation. EXTREMITIES: Lower extremities with no significant edema. LABORATORY: White count 9.6, hemoglobin 9.6, hematocrit 29.2, platelet count 221. Chemistry shows sodium 129, potassium 4.0, chloride 101, CO2 is 21, BUN 26, creatinine 1.30, glucose 115, calcium 10.0, magnesium 1.8. Chest x-ray done shows persistent round opacity in the medial right upper lobe again, however no significant change in that. ASSESSMENT: 1. Sepsis secondary to bilateral pneumonia which is improving. 2. Congestive heart failure with exacerbation, improving. 3. Recent traumatic fall. 4. Acute on chronic renal insufficiency which has improved. 5. Electrolyte imbalance, improved. 6. Coronary artery disease. 7. Gastroesophageal reflux disease. 8. History of myocardial infarction. 9. Anemia status post packed red blood cells. PLAN: Overall clinically the patient has improved, however she is still weak and pretty much refuses to do physical therapy. I will have Physical Therapy work with her today to see how she does, but if she continues to refuse care she will be discharged back to the assisted where she was. At this point, she has been started back on her Lasix. I will recheck labs and x-ray in the morning as well. #[id number] MTDD
[2019-03-08] MEDS: ATORVASTATIN 20 MG TAB PO SCH (20:36)
[2019-03-08] MEDS: REMOVE OLD PATCH TOP SCH (20:38)
[2019-03-09] MEDS: PANTOPRAZOLE SODIUM TAB 40 MG PO SCH (06:00)
--- NOTE | 2019-03-09 07:25 | RAD ---
EXAM: XR Chest, 1 View CLINICAL HISTORY: The patient is 73 years old and is Female; pneumonia TECHNIQUE: Frontal view of the chest. COMPARISON: Chest radiograph from 03/08/2019 FINDINGS: LUNGS: The left lung is clear. Patchy densities again noted in the right upper and mid lung. These appear slightly improved. PLEURAL SPACE: No significant pleural effusion visualized. No obvious pneumothorax. HEART: Stable enlargement of the cardiac silhouette. MEDIASTINUM: Unremarkable. BONES/JOINTS: The bones are unchanged. IMPRESSION: Patchy opacities in the right upper and mid lung appear slightly improved. These may represent pneumonia. Recommend follow-up to ensure resolution. Electronically signed by: Renetta Hilton MD 03/09/2019 7:24 AM CDT
[2019-03-09] MEDS ORDERED: SODIUM CHL 0.9% 50ML MIN-BAG+ 50 ML IVPB ONE (08:17)
[2019-03-09] MEDS ORDERED: CEFEPIME 2 GM VIAL ONE (08:19)
[2019-03-09] MEDS: LEVALBUTEROL NEBS 1.25 MG/3 ML VIAL INH SCH ×2 (08:30→08:33)
[2019-03-09] MEDS: GABAPENTIN 300 MG CAP PO SCH (09:14)
[2019-03-09] MEDS: guaiFENesin ER TAB 600 MG TAB PO SCH (09:14)
[2019-03-09] MEDS: SODIUM CHL 0.9% IVPB SCH (09:14)
[2019-03-09] MEDS: SPIRONOLACTONE 25 MG TAB PO SCH (09:14)
[2019-03-09] MEDS: CEFEPIME IVPB SCH (09:14)
[2019-03-09] MEDS: FUROSEMIDE 40 MG TAB PO SCH (09:15)
[2019-03-09] MEDS: METOPROLOL SUCCINATE XL 50 MG TAB PO SCH (09:15)
[2019-03-09] MEDS: cloNIDine HCL 0.1 MG TAB PO SCH (09:15)
[2019-03-09] MEDS: LISINOPRIL 10 MG TAB PO SCH (09:15)
[2019-03-09] MEDS: APIXABAN 2.5 MG TAB PO SCH (09:15)
[2019-03-09] MEDS: ASPIRIN (CHEWABLE) 81 MG TAB PO SCH (09:15)
[2019-03-09] MEDS: NITROGLYCERIN 0.4 MG/HR PATCH TOP SCH (09:16)
[2019-03-09] MEDS: NYSTATIN POWDER 15GM BTTL TOP SCH (09:16)
[2019-03-09 11:16] VITALS: BP 119/78; TEMP 97.9; O2SAT 97
--- NOTE | 2019-03-09 14:22 | DS ---
SUPERVISING PHYSICIAN: Donny Spears MD ADMISSION DIAGNOSIS: 1. Sepsis secondary to bilateral pneumonia. 2. Congestive heart failure with exacerbation. 3. Recent traumatic fall one month ago. 4. Chronic renal insufficiency. 5. Coronary artery disease. 6. Gastroesophageal reflux disease. 7. History of myocardial infarction. DISCHARGE DIAGNOSIS: 1. Sepsis secondary to bilateral pneumonia. 2. Congestive heart failure with exacerbation. 3. Recent traumatic fall one month ago. 4. Chronic renal insufficiency. 5. Coronary artery disease. 6. Gastroesophageal reflux disease. 7. History of myocardial infarction. HOSPITAL COURSE: This is a 73-year-old female who came into the Emergency Room secondary to cough, fever and body aches which had progressively gotten worse over the prior week. She also had some shortness of breath. The patient has had multiple pneumonia episodes. She also has congestive heart failure. Approximately one month prior to her visit to the Emergency Room, she had a fall and a scalp laceration that was repaired. She went to [facility] after that for physical therapy. In the Emergency Room, she was evaluated and found to have findings consistent with bilateral pneumonia. She was admitted for that reason and placed on antibiotic therapy. She was placed on cefepime as well as azithromycin. Throughout the admission, her shortness of breath improved. She frequently refused any kind of physical therapy. However, the day prior to discharge, she did participate in the afternoon. Her white count stabilized and this morning, her chest x-ray actually showed some improvement in the infiltrate on the right. Due to her being afebrile and clinical status improving, she will be discharged back to [facility] today in stable condition. I have written for Omnicef 300 mg b.i.d. for 7 days. Additionally, activity will be as tolerated and diet as per the diet she had prior to admission. She will followup with her primary care physician in one to two weeks. ADDENDUM: After the patient was discharged, the sputum culture actually came back with MRSA. Sensitivity shows the MRSA would be sensitive to clindamycin and Bactrim. I have instructed the Omnicef to be changed to clindamycin 300 mg every 6 hours and we will do that for 14 days. #[id number] MTDD
== END 2019-03-09 10:50 | DRG 871 ==
LOC: SUPCPDRO 15:06 → ER 15:06 → MS 17:07
PROVIDERS: ADMIT Nurse Practitioner Acute Care; ATTEND Nurse Practitioner
PROC: 30233N1 Transfusion of Nonautologous Red Blood Cells into Peripheral Vein, Percutaneous Approach (ICD-10-PCS; principal; 2019-03-05)
DX: A41.9 Sepsis, unspecified organism (principal); J18.9 Pneumonia, unspecified organism; I13.0 Hypertensive heart and chronic kidney disease with heart failure and stage 1 through stage 4 chronic kidney disease, or unspecified chronic kidney disease; E87.1 Hypo-osmolality and hyponatremia; Z68.41 Body mass index [BMI] 40.0-44.9, adult; I50.9 Heart failure, unspecified; N18.9 Chronic kidney disease, unspecified; I25.10 Atherosclerotic heart disease of native coronary artery without angina pectoris; K21.9 Gastro-esophageal reflux disease without esophagitis; D64.9 Anemia, unspecified; I25.2 Old myocardial infarction; B95.62 Methicillin resistant Staphylococcus aureus infection as the cause of diseases classified elsewhere; E78.5 Hyperlipidemia, unspecified; E66.9 Obesity, unspecified; Z79.02 Long term (current) use of antithrombotics/antiplatelets; Z79.82 Long term (current) use of aspirin; Z79.899 Other long term (current) drug therapy; Z91.81 History of falling; Y95 Nosocomial condition

== ENCOUNTER → 2019-03-23 | Outpatient (CLI) | payer MEDICARE, MEDICAID ==
--- NOTE | 2019-03-23 13:06 | RAD ---
PROCEDURE: XR Pelvis, 1 Views CLINICAL INDICATION: The patient is 73 years old and is Female; PN IN RIGHT HIP JOINT MAIN TECHNIQUE: Frontal view of the pelvis. COMPARISON: 02/01/2019 FINDINGS: BONES/JOINTS: There is NO fracture or dislocation the pelvis. The sacral neural arches are intact. The sacroiliac joints are unremarkable. Both femoral heads are well-seated in their respective acetabula. There are degenerative change sin the lower lumbar spine. Bone mineral density is within normal limits The pubic symphysis is intact. SOFT TISSUES: Unremarkable.No radiopaque foreign body. No significant soft tissue swelling noted. OTHER FINDINGS: The pelvic brim is smooth. IMPRESSION: No significant interval change when compared to the prior study from 6 weeks earlier. No fracture or dislocation identified in the pelvis on single frontal view. Electronically signed by: Juan Yang MD 03/23/2019 1:05 PM CDT
--- NOTE | 2019-03-23 13:39 | RAD ---
PROCEDURE: XR Right Hip With Pelvis When Performed, 2 or 3 Views CLINICAL INDICATION: The patient is 73 years old and is Female; PN IN RIGHT HIP JOINT MAIN TECHNIQUE: Two or three views of the right hip, with pelvis when performed. COMPARISON: No relevant prior studies available. FINDINGS: BONES/JOINTS: Unremarkable.No acute fracture noted. No dislocation. Joint spaces maintained. SOFT TISSUES: No radiopaque foreign body. There is a focal contusion adjacent to the RIGHT hip in the soft tissues. IMPRESSION: No fracture or dislocation identified in the RIGHT hip with positive soft tissue contusion adjacent to the RIGHT hip. Can consider further imaging with CT or MR as needed. Electronically signed by: Juan Yang MD 03/23/2019 1:37 PM CDT
== END ==
LOC: RAD 11:56
PROVIDERS: ATTEND Nurse Practitioner Family
DX: S70.01XA Contusion of right hip, initial encounter (principal)

== ENCOUNTER → 2019-05-19 | Outpatient (CLI) | payer MEDICARE, MEDICAID ==
--- NOTE | 2019-05-19 20:31 | US ---
EXAM DESCRIPTION: Venous,Lower Extremity RT (accession [id number]), Venous,Lower Extremity LT (accession [id number]): Ultrasound. CLINICAL HISTORY: EDEMA COMPARISON: None Available. TECHNIQUE: Two -dimensional and doppler sonographic evaluation of the deep venous system of the bilateral lower extremities. FINDINGS: Doppler evaluation shows normal color flow and normal phasicity and augmentation of the bilateral common femoral veins, junctions with the bilateral proximal saphenous veins, femoral veins, popliteal veins, peroneal veins, and posterior tibial veins. These veins showed normal occlusion with transducer pressure. Two-dimensional survey showed no echogenic clot within these veins. IMPRESSION: Duplex ultrasound evaluation of the bilateral lower extremity deep venous systems showing no evidence of thrombosis. Electronically signed by: Adriano St MD 05/19/2019 8:29 PM CDT
--- NOTE | 2019-05-19 20:31 | US ---
EXAM DESCRIPTION: Venous,Lower Extremity RT (accession [id number]), Venous,Lower Extremity LT (accession [id number]): Ultrasound. CLINICAL HISTORY: EDEMA COMPARISON: None Available. TECHNIQUE: Two -dimensional and doppler sonographic evaluation of the deep venous system of the bilateral lower extremities. FINDINGS: Doppler evaluation shows normal color flow and normal phasicity and augmentation of the bilateral common femoral veins, junctions with the bilateral proximal saphenous veins, femoral veins, popliteal veins, peroneal veins, and posterior tibial veins. These veins showed normal occlusion with transducer pressure. Two-dimensional survey showed no echogenic clot within these veins. IMPRESSION: Duplex ultrasound evaluation of the bilateral lower extremity deep venous systems showing no evidence of thrombosis. Electronically signed by: Adriano St MD 05/19/2019 8:29 PM CDT
== END ==
LOC: ECHO 14:00
PROVIDERS: ATTEND Internal Medicine Cardiovascular Disease
DX: I87.2 Venous insufficiency (chronic) (peripheral) (principal); I50.32 Chronic diastolic (congestive) heart failure

== ENCOUNTER 2019-06-01 16:04 | Inpatient (IN) | payer MEDICARE, MEDICAID ==
[2019-06-01] MEDS ORDERED: CLINDAMYCIN IV 900MG 900 MG in PREMIX BAG 1 BAG IVPB ONE (16:40)
--- NOTE | 2019-06-01 16:45 | ED.PDOC ---
History of Present Illness - General Chief Complaint: Skin/Abrasion/Tear Stated Complaint: draining wound to right buttock Time Seen by Provider: 06/01/19 16:27 - History of Present Illness Initial Comments: 73 yo F PMH HTN CAD multiple vascular stents presents to ED sent from PMD Dr. Catalino Dillon's office for tense hematoma on right buttocks that is draining. Daughter at bedside, pt. is on eloquis and had recent fall prior to 11 of February. Is at rehabilitation center and lesion was noted this am. pt sent to ED from PMD office. Dr. Dillon would like Dr. Faye of Surgery to evaluate patient for possible drainage. Dr. Granger is strategic planning specialist and pt has had electrolyte imbalances in the past. Denies fever chills nausea vomiting diarrhea chest pain sob diaphoresis. Symptoms disturbing rest no change in diet bowel or bladder. De nies drinking and smoking admits FH HTN DM. No other c/o today. Allergies/Adverse Reactions: Allergies NO KNOWN ALLERGY Allergy (Verified 09/05/16 13:36) Home Medications: Ambulatory Orders Apixaban [Eliquis] 2.5 mg PO BID 09/05/16 Lisinopril 20 mg PO DAILY 09/05/16 Metoprolol Succinate [Metoprolol Succinate ER] 50 mg PO DAILY 09/05/16 Atorvastatin Calcium 40 mg PO BEDTIME 04/21/18 Furosemide Tab [Lasix Tab] 40 mg PO DAILY 04/21/18 Spironolactone 50 mg PO BID 04/21/18 hydrALAZINE HCl [HydrALAzine HCl] 25 mg PO TID 04/21/18 Nitroglycerin Patch 0.4 mg/Hr [Nitro-Dur PATCH 0.4 mg/hour] 0.4 mg TOP QD 02/01/19 Acetaminophen [Tylenol] 1,000 mg PO BEDTIME 03/04/19 Aspirin [Aspirin Low Strength] 81 mg PO DAILY 03/04/19 Clonidine HCl 0.1 mg PO Q12HR 03/04/19 Cyanocobalamin [Vitamin B 12] 500 mcg PO DAILY 03/04/19 Gabapentin 300 mg PO TID 03/04/19 Cefdinir 300 mg PO BID 7 Days #14 capsule 03/09/19 guaiFENesin ER TAB [Mucinex Tab] 600 mg PO BID 14 Days #28 tab 03/09/19 Review of Systems - Review of Systems Constitutional: States: see HPI EENTM: States: see HPI Respiratory: States: see HPI Cardiology: States: see HPI Gastrointestinal/Abdominal: States: see HPI Genitourinary: States: see HPI Musculoskeletal: States: see HPI Skin: States: other - large tense hematoma to right buttocks Neurological: States: see HPI Endocrine: States: see HPI Hematologic/Lymphatic: States: see HPI Past Medical History (General) - Patient Medical History Hx Seizures: No Hx Stroke: No Hx Asthma: No Hx of COPD: No Hx Cardiac Disorders: Yes - recent NH,CAD Hx Congestive Heart Failure: Yes Hx Pacemaker: No Hx Hypertension: Yes Hx Diabetes: No Hx Gastroesophageal Reflux: Yes Hx Cancer: Yes - Uterine-remission Hx MRSA: No Surgical History: Hysterectomy, other - Vaccination History Hx Tetanus, Diphtheria Vaccination: No Hx Influenza Vaccination: Yes Hx Pneumococcal Vaccination: Yes - Social History Hx Tobacco Use: No Hx Alcohol Use: No Hx Substance Use: No Hx Substance Use Treatment: No Hx Depression: No Hx Physical Abuse: No Hx Emotional Abuse: No - Activities of Daily Living Long-Term/Assisted Living (if applicable):: [facility] - Female History Patient : No Family Medical History - Family History Mother Family History: Unknown Living Status: Hx Family Asthma: Yes - father Hx Family Congestive Heart Failure: Yes - father Hx Family Hypertension: Yes - father Hx Cardiac Disease: Yes - father Hx Family Cancer: Yes - lungs-mom Physical Exam - Physical Exam General Appearance: Other - uncomfortable Eye Exam: bilateral normal Ears, Nose, Throat: normal ENT inspection Neck: non-tender, full range of motion Respiratory: normal breath sounds Cardiovascular/Chest: regular rate, rhythm Gastrointestinal/Abdominal: non tender, soft Rectal Exam: deferred Back Exam: normal inspection Extremity: normal range of motion, non-tender Neurologic: oriented x 3 Skin Exam: other - tense erythematous blanching tender lesion spanning majority of right buttock with serosanguinous drainage Progress - Progress Progress: 06/01/19 16:53 A/P-Cellulitis of Right Bottocks-iv bolus cbc cmp trop esr crp ekg cxr blood cultures clindamycin consult surgery Dr. Faye ADMIT 06/01/19 21:42 Spoke to Dereje Hubbard who will consult surgery and accepts admission - Results/Orders Results/Orders: EKG-irregularly irregular rhythm RBBB slow ventricular response atrial fibrillation abnormal EKG Laboratory Tests 06/01/19 06/01/19 06/01/19 16:50 16:50 16:50 WBC 6.8 RBC 2.84 L Hgb 8.9 L Hct 27.3 L MCV 96.0 MCH 31.4 H MCHC 32.7 L RDW 15.5 H Plt Count 237 MPV 7.6 Absolute Neuts (auto) 4.90 Absolute Lymphs (auto) 0.90 L Absolute Monos (auto) 0.70 Absolute Eos (auto) 0.20 Absolute Basos (auto) 0.10 Neutrophils % 71.6 Lymphocytes % 13.5 L Monocytes % 10.5 H Eosinophils % 3.2 Basophils % 1.2 ESR PT 13.2 H INR 1.32 H PTT (SP) 26.7 Sodium 129 L Potassium 3.7 Chloride 94 L Carbon Dioxide 26 Anion Gap 12.7 BUN 32 H Creatinine 2.56 H BUN/Creatinine Ratio 12.5 Random Glucose 112 H Serum Osmolality 266.6 L Calcium 11.5 H Total Bilirubin 0.6 AST 12 ALT < 8 L Alkaline Phosphatase 72 Troponin I C-Reactive Protein Serum Total Protein 11.3 H Albumin 2.6 L Globulin 8.7 H Albumin/Globulin Ratio 0.3 L 06/01/19 06/01/19 06/01/19 16:50 16:50 16:50 WBC RBC Hgb Hct MCV MCH MCHC RDW Plt Count MPV Absolute Neuts (auto) Absolute Lymphs (auto) Absolute Monos (auto) Absolute Eos (auto) Absolute Basos (auto) Neutrophils % Lymphocytes % Monocytes % Eosinophils % Basophils % ESR 125 H PT INR PTT (SP) Sodium Potassium Chloride Carbon Dioxide Anion Gap BUN Creatinine BUN/Creatinine Ratio Random Glucose Serum Osmolality Calcium Total Bilirubin AST ALT Alkaline Phosphatase Troponin I 0.03 C-Reactive Protein 3.4 H Serum Total Protein Albumin Globulin Albumin/Globulin Ratio Study: CT of the Head. Indication: New onset vertigo/vomiting Technique: Axial CT images of the head were acquired without intravenous contrast. Comparison: None. Findings: No CT evidence of acute ischemia, acute hemorrhage, mass, mass effect, midline shift, or extra-axial fluid collection. Ventricles are normal in configuration without hydrocephalus. Patchy hypoattenuation of the perivent ricular and subcortical white matter noted. This is nonspecific but most consistent with chronic microvascular ischemic change. Global parenchymal volume loss and intracranial atherosclerosis noted as well. Paranasal sinuses are adequately aerated. Mastoid air cells are adequately aerated. Osseous structures and soft tissues are unremarkable. Impression: 1. No CT evidence of acute intracranial abnormality. 2. Senescent changes. Electronically signed by: Alexander Carrillo MD 11/01/2016 1:26 PM CDT Departure - Departure Clinical Impression: Cellulitis of right buttock, Hyponatremia Anemia Qualifiers: Anemia type: unspecified type Qualified Code(s): D64.9 - Anemia, unspecified Renal failure Qualifiers: Renal failure chronicity: unspecified chronicity Qualified Code(s): N19 - Unspecified kidney failure Disposition: Admit Patient Condition: Fair Departure Forms: ED Discharge - Pt. Copy, Patient Portal Self Enrollment Instructions: DI for Abrasion Referrals: Halina Rosado NP [Primary Care Provider] - 1-2 Weeks Home Medications: Ambulatory Orders Apixaban [Eliquis] 2.5 mg PO BID 09/05/16 Lisinopril 20 mg PO DAILY 09/05/16 Metoprolol Succinate [Metoprolol Succinate ER] 50 mg PO DAILY 09/05/16 Atorvastatin Calcium 40 mg PO BEDTIME 04/21/18 Furosemide Tab [Lasix Tab] 40 mg PO DAILY 04/21/18 Spironolactone 50 mg PO BID 04/21/18 hydrALAZINE HCl [HydrALAzine HCl] 25 mg PO TID 04/21/18 Nitroglycerin Patch 0.4 mg/Hr [Nitro-Dur PATCH 0.4 mg/hour] 0.4 mg TOP QD 02/01/19 Acetaminophen [Tylenol] 1,000 mg PO BEDTIME 03/04/19 Aspirin [Aspirin Low Strength] 81 mg PO DAILY 03/04/19 Clonidine HCl 0.1 mg PO Q12HR 03/04/19 Cyanocobalamin [Vitamin B 12] 500 mcg PO DAILY 03/04/19 Gabapentin 300 mg PO TID 03/04/19 Cefdinir 300 mg PO BID 7 Days #14 capsule 03/09/19 guaiFENesin ER TAB [Mucinex Tab] 600 mg PO BID 14 Days #28 tab 03/09/19 Decision To Admit - Decistion To Admit Decision to Admit Reason: Admit from ER Decision to Admit Date: 06/01/19 Decision to Admit Time: 21:43
[2019-06-01] MEDS ORDERED: CLINDAMYCIN IV 900MG 50 ML IVPB ONE (17:09)
--- NOTE | 2019-06-01 17:21 | RAD ---
EXAM DESCRIPTION: Chest,1 View CLINICAL HISTORY: cellulitis r/o pneumonia COMPARISON: 09 March 2019 TECHNIQUE: AP portable chest FINDINGS: Cardiomegaly is evident. Pulmonary vascular congestion is seen. The findings are suggestive of congestive heart failure. No focal infiltrate is detected. IMPRESSION: Findings suggestive of congestive heart failure observed. No focal infiltrate is detected. Electronically signed by: Beau Peguero MD 06/01/2019 5:17 PM CDT
--- NOTE | 2019-06-01 22:18 | HP ---
SUPERVISING PHYSICIAN: Arun Beth MD CHIEF COMPLAINT: Right buttocks swelling. HISTORY OF PRESENT ILLNESS: This is a 73-year-old female who came to the Emergency Room due to a draining wound to the right buttock. Apparently, she fell back in January and developed some sort of abrasion at that time. She did have a little bit of swelling over the past couple of days. The swelling has gotten much worse as well as the erythema and started to drain some serosanguineous fluid. She was seen by Dr. Dillon at his office and then was subsequently seen at the Emergency Room. Dr. Dillon's wish was for Dr. Hassan to evaluate the patient to see if it needed to be drained. The patient was seen in the Emergency Room and given a dose of clindamycin and subsequently referred for admission. A CT scan or an ultrasound have not been done to see if there is a fluid collection. We did review the labs and there is no elevation of white count, hemoglobin 8.9. ESR 125. INR 1.32, but she is on Eliquis. Sodium 129, BUN elevated at 32 and creatinine at 2.56. CRP 3.4. At the time of examination, the patient is alert and oriented without distress. Vital signs are acceptable at this time. PAST MEDICAL HISTORY: 1. Chronic renal insufficiency. 2. Coronary artery disease. 3. Acute myocardial infarction. 4. Hyperlipidemia. 5. Hypertension. 6. Gastroesophageal reflux disease. 7. Hospitalization in February for bilateral pneumonia. 8. Congestive heart failure. PAST SURGICAL HISTORY: 1. Multiple stent placements. MEDICATIONS: Please see the medication reconciliation record once it is verified in the computer. ALLERGIES: NO KNOWN DRUG ALLERGIES. FAMILY HISTORY: Reviewed, but noncontributory to the current illness. SOCIAL HISTORY: The patient is retired. She lives at [facility] for physical therapy. She has 3 children. No alcohol, no drugs, no smoking. REVIEW OF SYSTEMS: CONSTITUTIONAL: No fever or chills. No recent weight loss or weight gain. HEENT: No headaches, vision changes, ear pain, nasal congestion or throat pain. RESPIRATORY: No cough, hemoptysis or pleuritic chest pain. CARDIOVASCULAR: No chest pain, palpitations, but she does get some edema. GASTROINTESTINAL: No nausea, vomiting, diarrhea, constipation or abdominal pain. GENITOURINARY: No dysuria, frequency or flank pain. SKIN: See history of present illness. ENDOCRINE: No polydipsia, polyuria or polyphagia. No heat or cold intolerance. NEUROLOGIC: No syncope, paresthesias or seizures. PHYSICAL EXAMINATION: VITAL SIGNS: Blood pressure 119/79. Heart rate 69. Respiratory rate 22. Temperature 79.9. Oxygen saturation 93%. GENERAL: Ms. Rivera is a 73-year-old female in no active distress currently. NEUROLOGIC: The patient is alert, somewhat confused, but that is at her baseline. LUNGS: Diminished in the bases, otherwise clear to auscultation bilaterally. CARDIOVASCULAR: Regular rate and rhythm. Normal S1, S2. ABDOMEN: Obese, soft. Positive bowel sounds. GENITOURINARY: Deferred. EXTREMITIES: Lower extremities with trace ankle edema. Pulses 2+. Capillary refill is less than 2 seconds. SKIN: Examined with the nurse at bedside. The right buttock does have quite a bit of erythema. There is an open area which is draining clear/pinkish fluid. It is warm to the touch and firm to the touch. ASSESSMENT: 1. Right buttocks cellulitis with question of fluid collection/hematoma. 2. Anemia. 3. Acute on chronic kidney disease. 4. History of coronary artery disease and congestive heart failure with no evidence of acute exacerbation. 5. Gastroesophageal reflux disease. 6. Hypertension. PLAN: At this time, the patient will be admitted to the hospital for treatment of the cellulitis. She got a dose of clindamycin. I am adding vancomycin as well. She does have a history of MRSA in her sputum in February that was treated with clindamycin. Additionally, I am going to start her on some IV fluids at a conservative rate given her history of congestive heart failure, however, I have reviewed her previous admissions and creatinines and she has had normal values, so this is likely an acute on chronic issue. The anemia is likely secondary to her chronic renal insufficiency as well. We cannot rule out that this is a hematoma. However, she does not require transfusion at this time. We will trend the labs and transfuse as necessary. I am holding the Eliquis. I am going to get a CT scan of the pelvis to better evaluate the cellulitis and see if there is a fluid collection which might require drainage. I will contact the surgeon in the morning to evaluate this and see what his thoughts are. I will resume her home medications once they are verified in the computer as well. #[id number] [facility]
[2019-06-01] MEDS ORDERED: CHLORHEXIDINE GLUCONATE 4 % 15 ML UD TOP ONE (23:04)
[2019-06-01] MEDS ORDERED: BACITRACIN 0.9 GM UD PCKT ONE (23:04)
[2019-06-01] MEDS ORDERED: SODIUM CHLORIDE 0.9% 250ML 250 ML ONE (23:28)
[2019-06-01] MEDS ORDERED: VANCOMYCIN HCL INJ 500 MG VIAL ONE (23:28)
[2019-06-01] MEDS ORDERED: VANCOMYCIN HCL INJ 1,000 MG VIAL IVPB ONE (23:28)
[2019-06-01] MEDS ORDERED: VANCOMYCIN HCL INJ 1,000 MG, VANCOMYCIN HCL INJ 500 MG in SODIUM CHLORIDE 0.9% 250ML 25... IVPB ONE (23:30)
[2019-06-01] MEDS: IV SET AND CAP CHANGE INJ INJ SCH (23:45)
[2019-06-02] MEDS ORDERED: CLINDAMYCIN IV 600MG 50 ML IVPB ONE ×5 (00:12→19:47)
[2019-06-02] MEDS: SODIUM CHLORIDE 0.9% 1000ML 1,000 ML IVS PRN ×2 (01:17→17:25)
[2019-06-02] MEDS: CLINDAMYCIN IV 600MG 600 MG in PREMIX BAG 1 BAG IVPB SCH ×5 (01:17→23:57)
[2019-06-02] MEDS ORDERED: LISINOPRIL 10 MG TAB PO SCH (09:00)
[2019-06-02] MEDS ORDERED: METOPROLOL SUCCINATE XL 50 MG TAB PO SCH (09:00)
[2019-06-02] MEDS ORDERED: cloNIDine HCL 0.1 MG TAB PO SCH (09:00)
[2019-06-02] MEDS ORDERED: VANCOMYCIN PER PHARMACY IVPB SCH (10:00)
--- NOTE | 2019-06-02 11:32 | CT ---
EXAM DESCRIPTION: Pelvis: Computed Tomography. CLINICAL HISTORY: Right buttock cellulitis COMPARISON: CT scan abdomen and pelvis 04/21/2018. TECHNIQUE: Spiral-axial scans 2.5 x 2.5 mm intervals through the pelvis: no water soluble barium contrast; no IV contrast. (Decreased renal function.) Coronal and sagittal 2.0 mm reconstructions. Total Exam DLP: 2607.9 mGy-cm. This exam was performed according to our departmental CT dose-optimization program which includes automated exposure control, adjustment of the mA and/or kV according to patient size and/or use of iterative reconstruction technique; to reduce radiation dose to as low as reasonably achievable (ALARA). Technically difficult study due to large patient body habitus. FINDINGS: Pelvic Wall/Back Soft Tissues: Soft tissue mass with minimal rim density in the right buttocks. Dimensions are 15.4 x 13.1 x 11.8 cm. Density measures from +28 to +37. Most likely an abscess. Mass effect on the right gluteus muscles and contacting the posterior skin surface. Surrounded by fat stranding. Pelvic Organs: Bilateral surgical clips. Vaginal cuff negative. Ovaries not seen. No free fluid. Urinary bladder contracted. Mesentery: No stranding. Dense atherosclerotic calcification distal aorta and bilateral proximal iliac arteries. Small Bowel: Included segments with no distention. Terminal Ileum: Unremarkable. Appendix not seen. Cecum: normal caliber. Contains fecal matter. Colon: Included segments containing fecal matter distention proximally. Spine and Bony Pelvis: Arthrosis bilateral hip joints with narrowing and sclerosis. Pubic symphysitis. Bilateral arthrosis SI joints. Spondylosis lumbar spine. Inguinal Canals: Bilateral fatty hernias not containing bowel. IMPRESSION: 1. Large complicated fluid collection, liquifying hematoma, versus abscess right buttock. Contacting the right posterior overlying skin with mass effect on the right gluteal muscles. Consider percutaneous versus open drainage/tissue sampling. 2. No mass or inflammatory changes or free fluid in the pelvis. CRITICAL COMMUNICATION: The critical value was discussed directly by phone by Dr. St, with Mr. Dereje Hubbard RN, PERSONAL COUNSELOR, [facility] Hospitalist, at approximately 1125 hours, on June 02, 2019. Electronically signed by: Adriano St MD 06/02/2019 11:31 AM CDT
[2019-06-02] MEDS: NITROGLYCERIN 0.4 MG/HR PATCH TOP SCH (11:45)
[2019-06-02] MEDS: CYANOCOBALAMIN 1,000 MCG TAB PO SCH (11:49)
[2019-06-02] MEDS: ASPIRIN (CHEWABLE) 81 MG TAB PO SCH (11:50)
[2019-06-02] MEDS: GABAPENTIN 300 MG CAP PO SCH ×3 (11:50→21:06)
--- NOTE | 2019-06-02 14:04 | PN ---
SUPERVISING PHYSICIAN: Arun Beth MD DATE: 06/02/19 SUBJECTIVE: The patient has no significant complaints today. She has a little bit of discomfort where the cellulitis is, but otherwise feels pretty good at this point. OBJECTIVE: VITAL SIGNS: Blood pressure 102/69. Heart rate 60. Respiratory rate 18. Temperature 98.1. Oxygen saturation 95%. GENERAL: Ms. Rivera is a 73-year-old female in no active distress. NEUROLOGIC: Alert. LUNGS: Diminished in the bases, otherwise clear. CARDIOVASCULAR: Regular rate and rhythm. Normal S1, S2. ABDOMEN: Soft. Positive bowel sounds. GENITOURINARY: Deferred. EXTREMITIES: Lower extremities with some edema. Pulses 2+. Capillary refill is less than 2 seconds. Cellulitis is unchanged. LABORATORY: I did do labs today. She has a mild improvement in her creatinine to 2.35 from 2.56. Still with a normal white count. Hemoglobin 8.3. I did order a CT scan of the pelvis to better evaluate this cellulitis and ensure that there was no abscess versus blood. This was done today and did show a large, complicated fluid collection versus a liquefying hematoma or abscess. The radiologist I spoke with recommended possible ultrasound guided drainage, but also we got a surgical consultation with Dr. Hassan. ASSESSMENT: 1. Right buttocks cellulitis with possibility of abscess versus hematoma. 2. Anemia. 3. Acute on chronic kidney disease. 4. History of congestive heart failure with no evidence of acute exacerbation. 5. Gastroesophageal reflux disease. 6. Hypertension. PLAN: We will continue the vancomycin and clindamycin for now. As stated above, I have consulted with Dr. St in radiology as well as Dr. Hassan. We are going to attempt to drain this percutaneously. If that does not work, we may need a surgical intervention. [facility][id number] [facility]
--- NOTE | 2019-06-02 15:48 | US ---
EXAM DESCRIPTION: Cyst Aspiration: ULTRASOUND. CLINICAL HISTORY: 73 years Female abscess right lateral buttock. COMPARISON: CT scan of the pelvis earlier today. TECHNIQUE: Transcutaneous scanning: Diego-scale and Doppler modes. Procedure explained to the patient and patient's medical power of associate attorney with risks and benefits. Verbal understanding by the medical power of associate attorney and consent was signed. Timeout was performed. After preliminary scanning, a site for insertion of drainage catheter was selected on the inferior lateral aspect of the mass on the right buttock. Erythema in the overlying skin as well as hard to palpation and increased temperature of the skin overlying the region of interest. 1% lidocaine intradermally and deep. Skin incision made with # 11 scalpel blade. Under sterile ultrasound guidance, 8 [place] Flexima APD 25 cm drainage catheter with J-tip introduced with inner stiffener and sharp trocar, was advanced easily into the collection while stiffener and trocar withdrawn. Approximately 600 mL of dark reddish-brown fluid was easily removed from the collection. No abnormal small bowel or significant amount of semisolid contents. 10 mL collected for laboratory evaluation. Drainage catheter sutured to the skin with suture and device and dressing was applied. A drainage bag applied to the drainage catheter. Patient tolerated the procedure well with no immediate complications. Orders were given. FINDINGS: Scan of the region of interest prior to drainage procedure showed solid and fluid hypoechoic and hyperechoic echoes inferior lateral right buttock. Images taken after placement of the drainage catheter show complex material within the superior aspect of the lesion with the drainage catheter in the posterior dependent location. IMPRESSION: Successful, sterile ultrasound-guided sterile placement of drainage catheter into complex right lateral buttock fluid collection, possibly an early abscess. 600 mL was removed with drainage catheter remaining in place with collection bag. Laboratory results are pending. Electronically signed by: Adriano St MD 06/02/2019 3:46 PM CDT
[2019-06-02] MEDS: ATORVASTATIN 20 MG TAB PO SCH (21:06)
[2019-06-03] MEDS ORDERED: CLINDAMYCIN IV 600MG 50 ML IVPB ONE ×4 (05:59→19:37)
[2019-06-03] MEDS: CLINDAMYCIN IV 600MG 600 MG in PREMIX BAG 1 BAG IVPB SCH ×4 (06:03→22:01)
[2019-06-03] MEDS: SODIUM CHLORIDE 0.9% 1000ML 1,000 ML IVS PRN ×2 (06:03→10:41)
[2019-06-03] MEDS ORDERED: LIDOCAINE 1% 10 ML VIAL INJ ONE (07:00)
[2019-06-03] MEDS ORDERED: PROPOFOL 200 MG/20 ML VIAL IV ONE (07:00)
[2019-06-03] MEDS ORDERED: BUPIVACAINE 0.5% W/EPI 30 ML VIAL INJ ONE (09:39)
[2019-06-03] MEDS: NITROGLYCERIN 0.4 MG/HR PATCH TOP SCH (09:47)
[2019-06-03] MEDS: GABAPENTIN 300 MG CAP PO SCH ×3 (09:47→20:20)
[2019-06-03] MEDS: CYANOCOBALAMIN 1,000 MCG TAB PO SCH (09:47)
[2019-06-03] MEDS: ASPIRIN (CHEWABLE) 81 MG TAB PO SCH (09:47)
[2019-06-03] MEDS ORDERED: KETAMINE HCL 100 MG/ML VIAL ONE (09:50)
[2019-06-03] MEDS ORDERED: MIDAZOLAM INJ 2 MG/2 ML VIAL ONE (09:50)
[2019-06-03] MEDS ORDERED: fentaNYL CITRATE INJ 50 MCG/ML AMP ONE (09:50)
--- NOTE | 2019-06-03 11:04 | CONS ---
DATE OF CONSULTATION: 06/02/19 REASON FOR CONSULTATION: Right gluteal hematoma. HISTORY OF PRESENT ILLNESS: About 2 days ago, the patient from the senior care had recalled that while transferring, she may have banged her right hip and buttocks on the bedside commode or chair. She had some bruising and a little bit of drainage. She had been Eliquis prior to a fall on February 11, but apparently that has been stopped now, but is still effective. She had seen Dr. Dillon and asked to go to the Emergency Room. In the Emergency Room, CT scan had shown a large fluid collection, so a percutaneous drain was placed by Radiology. This got out a few hundred cc, but there appears to be significant amount left and is not draining, likely clogged from clot and debris in the hematoma. PAST MEDICAL HISTORY: 1. History of myocardial infarction. 2. Coronary disease. 3. Congestive heart failure. 4. History of hypertension. 5. Reflux. 6. History of uterine cancer. PAST SURGICAL HISTORY: 1. Hysterectomy. CURRENT MEDICATIONS: Multiple, please see the list, but again included aspirin and Eliquis. ALLERGIES: NO KNOWN ALLERGIES. FAMILY HISTORY: Hypertension, coronary disease in her father. SOCIAL HISTORY: She denied any illicit habits. REVIEW OF SYSTEMS: Currently, she is without complaint. She has no fevers, no chills, no headache, no visual changes, no sore throat, no cough, no wheeze. No chest pain or palpitations. She had gotten better and in the senior care had developed a pneumonia, but that has been improving. She has had no GI or complaints. PHYSICAL EXAMINATION: VITAL SIGNS: Afebrile. Non-tachycardic. Blood pressure normal. GENERAL: She is conscious, alert and well-oriented. She is in no distress. She is eating her dinner at this time. HEENT: Normocephalic, atraumatic. Pupils equal and reactive. Sclerae anicteric. Oral mucosa is moist. NECK: Supple. CHEST: Clear. ABDOMEN: Soft, obese, nontender. The right hip shows fullness. A drain has been placed. It is not putting out anything now. There is still some fluctuance. The drain was bloody, non-purulent and a little bit of skin excoriation, just a couple of cm inferior on the gluteus. RECOMMENDATION: Given the way it is now, I recommend a closed suction drain, larger. I could irrigate and suck out all the clot and remaining tissue which would help it heal faster. She is sitting quite a bit and it is going to bother her, so I think this would benefit her. This was discussed with the patient and her daughter and they agree. She will be watched overnight. If it becomes large and tense again and there is ongoing bleeding, then I would likely delay evacuation of the hematoma. Additionally, her labs show hemoglobin 8.9, 8.3. CT scan as report. The plan is for surgical evacuation of hematoma. #[id number] [facility]
--- NOTE | 2019-06-03 11:22 | OP ---
DATE OF PROCEDURE: 06/03/19 PREOPERATIVE DIAGNOSIS: 1. Right hip/buttocks hematoma. POSTOPERATIVE DIAGNOSIS: 1. Hematoma times 2. PROCEDURE: 1. Incision with evacuation of hematoma, right hip. 2. Incision with evacuation of hematoma and drain placement, right gluteus. SURGEON: Reynold Hassan MD. ANESTHESIA: General and local. FINDINGS: Where the drain had been placed, we entered that cavity first. It was rather limited. We got out clot and blood. The main cavity I think which was underneath the excoriated skin included a much larger cavity approximately 12 cm. We got a lot of fibrinous debris and clot as well as old, liquefied blood. CAROLE drain was placed, upper was packed. COMPLICATIONS: None. ESTIMATED BLOOD LOSS: Minimal. CONDITION: Stable. PLAN: Admit. INDICATION: The patient had been on Eliquis and had apparently hit her hip. She developed a large hematoma, very, very tense. A drain was placed, which helped, but had some remaining fluctuance, fluid, etc., so I recommended complete evacuation of the clot and debris that likely resides. PROCEDURE: She was brought to the Operating Suite in lateral position. General anesthesia was induced. It was not clear exactly where the main cavity was at this point, so the drain was removed and we used a tonsil to probe that. It went into a nice cavity. I cut the incision open, got my finger in there and brought out quite a bit of clot and debris. I irrigated it. There was minor oozing. There was no active bleeding. That was in the right hip. Underneath the excoriated skin area, there was still obvious fluid underneath, so I made an incision. I got out a lot of fluid that was under some tension, just enough to put the suction in and with repeated suction and irrigation, we evacuated the clot and fibrinous debris and the old blood until it was coming out clear. A 15 round drain was placed and secured at the skin, closing up the hole to allow for good suction. It was trimmed and placed to bulb suction and working adequately. The upper one was a smaller cavity and was packed with a Kerlix. Local anesthesia had been used. The drain was secured with 2-0 Nylon. She tolerated the procedure and was taken to Recovery to be admitted. #[id number] [facility]
[2019-06-03] MEDS ORDERED: VANCOMYCIN HCL INJ 1,000 MG VIAL IVPB ONE (12:17)
[2019-06-03] MEDS ORDERED: VANCOMYCIN HCL INJ 500 MG VIAL ONE (12:17)
[2019-06-03] MEDS ORDERED: SODIUM CHLORIDE 0.9% 250ML 250 ML ONE (12:17)
[2019-06-03] MEDS: VANCOMYCIN HCL INJ 1,000 MG, VANCOMYCIN HCL INJ 500 MG in SODIUM CHLORIDE 0.9% 250ML 25... IVPB SCH (12:35)
--- NOTE | 2019-06-03 13:17 | PN ---
SUPERVISING PHYSICIAN: Arun Beth MD DATE: 06/03/19 SUBJECTIVE: The patient is lying in bed just resting. She has just returned from having her I&D on her right hip by Dr. Hassan. She has no complaints of pain, nausea, vomiting, chest pain or shortness of breath. She is hungry. OBJECTIVE: VITAL SIGNS: Temperature 96.2. Heart rate 66. Blood pressure 137/88. Respiratory rate 21. O2 saturation 98% on room air. RESPIRATORY: Essentially clear to auscultation bilaterally. CARDIAC: Regular rate and rhythm. GASTROINTESTINAL: Abdomen is soft, nondistended, nontender. SKIN: She has 2 dressings on her right lateral hip. One has a CAROLE drain that is draining sanguinous fluid. Dressings are dry and intact. EXTREMITIES: Bilateral pedal pulses are palpable at +2. NEUROLOGIC: Awake, alert and oriented times three. LABORATORY: There are no labs or films to report. ASSESSMENT: 1. Right buttocks cellulitis status post I&D per Dr. Hassan, general surgeon. 2. Anemia. 3. Acute on chronic kidney disease. 4. History of congestive heart failure with no evidence of acute exacerbation. 5. Gastroesophageal reflux disease. 6. Hypertension. PLAN: We will continue present supportive care. Operative issues will be per Dr. Hassan, general surgeon. I have advanced her diet as tolerated. I discussed with Dr. Hassan an additional orders. I will repeat her labs for in the morning. We will continue to monitor the patient closely and follow as needed. [facility][id number] [facility]
[2019-06-03] MEDS ORDERED: ONDANSETRON INJ 4 MG/2 ML VIAL IV PRN (18:19)
[2019-06-03] MEDS: ATORVASTATIN 20 MG TAB PO SCH (20:20)
[2019-06-03] MEDS: SODIUM CHLORIDE 0.9% (FLUSH) 10 ML SYG IV PRN (22:01)
[2019-06-03] MEDS ORDERED: PROMETHAZINE HCL INJ 25 MG in SODIUM CHLORIDE 0.9% 50ML 50 ML IVPB PRN (23:52)
[2019-06-04] MEDS ORDERED: PROMETHAZINE HCL INJ 25 MG/ML VIAL ONE (00:07)
[2019-06-04] MEDS ORDERED: SODIUM CHLORIDE 0.9% 50ML 50 ML ONE (00:07)
[2019-06-04] MEDS: CLINDAMYCIN IV 600MG 600 MG in PREMIX BAG 1 BAG IVPB SCH ×4 (04:08→22:00)
[2019-06-04] MEDS: APIXABAN 5 MG TAB PO SCH ×3 (08:30→20:37)
[2019-06-04] MEDS: ASPIRIN (CHEWABLE) 81 MG TAB PO SCH (08:30)
[2019-06-04] MEDS: GABAPENTIN 300 MG CAP PO SCH ×3 (08:30→20:38)
[2019-06-04] MEDS: NITROGLYCERIN 0.4 MG/HR PATCH TOP SCH (08:31)
[2019-06-04] MEDS: CYANOCOBALAMIN 1,000 MCG TAB PO SCH (08:34)
[2019-06-04] MEDS ORDERED: CLINDAMYCIN IV 600MG 50 ML IVPB ONE ×3 (08:36→19:21)
[2019-06-04] MEDS ORDERED: MAGNESIUM SULFATE PREMIX 2GM 2 GM in PREMIX BAG 1 BAG IVPB ONE (09:49)
[2019-06-04] MEDS ORDERED: MAGNESIUM SULFATE PREMIX 2GM 50 ML IVPB ONE (10:45)
--- NOTE | 2019-06-04 11:16 | PN ---
SUPERVISING PHYSICIAN: Arun Beth MD DATE: 06/04/19 SUBJECTIVE: The patient is sitting up in her chair. Her daughter is at the bedside. She is somewhat lethargic, but she does answer simple questions appropriately. She denies any pain, shortness of breath, chest pain, nausea or vomiting. It was reported that she had some nausea overnight, but that is improved. I discussed her plan of care with her daughter and the patient. We will continue to monitor overnight, especially since her H&H is low. Dr. Hassan has not seen the patient yet and I will also speak to him once he examines the patient. OBJECTIVE: VITAL SIGNS: Temperature 98.5. Heart rate 69. Blood pressure 105/65. Respiratory rate 20. O2 saturation 93% on room air. RESPIRATORY: Diminished at the bases, but otherwise clear to auscultation. CARDIAC: Regular rate, irregular rhythm. GASTROINTESTINAL: Abdomen is soft, nondistended, nontender. Bowel sounds are positive. SKIN: She has 2 dressings to the right lateral hip with a CAROLE drain that is draining sanguinous fluid. Dressings are dry and intact. EXTREMITIES: Bilateral pedal pulses are palpable at +2. NEUROLOGIC: She is lethargic, but she awakens easily. LABORATORY: WBCs 5,400, hemoglobin has dropped to 8.1 and hematocrit to 25.3. Sodium low at 132 with BUN 21, creatinine improved slightly to 2.16. Magnesium 1.4. Her liver enzymes are basically within normal limits. Her serum protein is high at 9.6. Albumin is 2.2. Her preliminary wound culture is pending. Her preliminary blood cultures show no growth after 48 hours. All other labs and films have been reviewed via the EMR. ASSESSMENT: 1. Right buttocks cellulitis status post I&D per Dr. Hassan, general surgeon, postoperative day #1. 2. Anemia. 3. Acute on chronic kidney disease. 4. History of congestive heart failure with no evidence of acute exacerbation. 5. Gastroesophageal reflux disease. 6. Hypertension. PLAN: We will continue present supportive care. I will speak with Dr. Hassan about his plan for the patient. At this point, her Eliquis has been held in case she has to go back for further debridement. We will restart that as soon as I find out the plan from Dr. Hassan. I have also given her some magnesium supplementation. I will watch her H&H very closely overnight. We will repeat her labs in the morning. We will continue to monitor the patient closely and follow as needed. #[id number] [facility]
[2019-06-04] MEDS ORDERED: VANCOMYCIN HCL INJ 500 MG VIAL ONE (19:21)
[2019-06-04] MEDS ORDERED: SODIUM CHLORIDE 0.9% 250ML 250 ML ONE (19:22)
[2019-06-04] MEDS ORDERED: VANCOMYCIN HCL INJ 1,000 MG VIAL IVPB ONE (19:22)
[2019-06-04] MEDS: ATORVASTATIN 20 MG TAB PO SCH (20:38)
[2019-06-04] MEDS: VANCOMYCIN HCL INJ 1,000 MG, VANCOMYCIN HCL INJ 500 MG in SODIUM CHLORIDE 0.9% 250ML 25... IVPB SCH (23:33)
[2019-06-04] MEDS: IV SET AND CAP CHANGE INJ INJ SCH (23:34)
[2019-06-05] MEDS ORDERED: CLINDAMYCIN IV 600MG 50 ML IVPB ONE ×5 (00:53→18:59)
[2019-06-05] MEDS: CLINDAMYCIN IV 600MG 600 MG in PREMIX BAG 1 BAG IVPB SCH ×4 (03:53→23:08)
[2019-06-05] MEDS: CYANOCOBALAMIN 1,000 MCG TAB PO SCH (08:42)
[2019-06-05] MEDS: NITROGLYCERIN 0.4 MG/HR PATCH TOP SCH (08:42)
[2019-06-05] MEDS: ASPIRIN (CHEWABLE) 81 MG TAB PO SCH (08:43)
[2019-06-05] MEDS: APIXABAN 5 MG TAB PO SCH (08:43)
[2019-06-05] MEDS: GABAPENTIN 300 MG CAP PO SCH ×3 (08:43→20:11)
[2019-06-05] MEDS: ACETAMINOPHEN W/COD #3 TAB 1 EA TAB PO PRN (13:51)
[2019-06-05] MEDS ORDERED: NYSTATIN POWDER 15GM BTTL TOP ONE (17:10)
[2019-06-05] MEDS ORDERED: SODIUM CHLORIDE 0.9% 500ML 500 ML ONE (19:16)
[2019-06-05] MEDS ORDERED: FUROSEMIDE INJ 20 MG/2 ML VIAL IV ONE (19:16)
[2019-06-05] MEDS ORDERED: ACETAMINOPHEN 325 MG TAB PO ONE (19:16)
[2019-06-05] MEDS ORDERED: diphenhydrAMINE HCL 50 MG/ML VIAL IV ONE (19:16)
[2019-06-05] MEDS ORDERED: SODIUM CHLORIDE 0.9% 500ML 500 ML IVS SCH (19:30)
[2019-06-05] MEDS: ATORVASTATIN 20 MG TAB PO SCH (20:11)
[2019-06-05] MEDS: SODIUM CHLORIDE 0.9% (FLUSH) 10 ML SYG IV PRN (20:11)
--- NOTE | 2019-06-05 20:16 | PN ---
DATE: 06/05/19 SUPERVISING PHYSICIAN: Arun Beth M.D. SUBJECTIVE: The patient is sitting up eating her lunch. She has no complaints. No shortness of breath, nausea, vomiting, diarrhea or chest pain. She has no complaints of her hip hurting at this time. OBJECTIVE: VITAL SIGNS: Temperature 98.4, heart rate 92, blood pressure 130/91, respiratory rate 20, O2 sat 90% on room air. RESPIRATORY: Essentially clear to auscultation bilaterally. Somewhat diminished at the bases. CARDIAC: Regular rate, irregular rhythm. GASTROINTESTINAL: Abdomen is soft, nondistended, non-tender. Bowel sounds are positive. SKIN: The dressings to her right lateral hip are dry and intact. NEUROLOGIC: She is awake and alert. LABORATORY: WBCs are 7.1 with a stable hemoglobin of 8.1 and hematocrit 24.8. Sodium is slightly low at 132, BUN 19, creatinine has improved to 1.97, magnesium has also improved to 1.8. Wound cultures are pending. Preliminary blood cultures show no growth after 3 days. All other labs and films have been reviewed via the EMR. ASSESSMENT: 1. Right buttocks cellulitis status post I&D per Dr. Hassan, general surgeon, postoperative day #2. 2. Anemia. 3. Acute on chronic kidney disease that has improved. 4. History of congestive heart failure with no evidence of acute exacerbation. 5. Gastroesophageal reflux disease. 6. Hypertension. PLAN: We will continue present supportive care. She has been released from Dr. Hassan from a surgical perspective. She is actually ready to be released but the paperwork for [facility] has not been completed and most likely will not be completed until Friday. Will hold on any labs and recheck her CBC on Friday morning prior to discharge and hopefully we can discharge her on Friday back to [facility]. #[id number] [facility]
[2019-06-06] MEDS: CLINDAMYCIN IV 600MG 600 MG in PREMIX BAG 1 BAG IVPB SCH ×4 (04:07→21:26)
[2019-06-06] MEDS ORDERED: SODIUM CHLORIDE 0.9% 250ML 250 ML ONE (07:49)
[2019-06-06] MEDS ORDERED: VANCOMYCIN HCL INJ 500 MG VIAL ONE (07:49)
[2019-06-06] MEDS ORDERED: CLINDAMYCIN IV 600MG 50 ML IVPB ONE ×4 (07:49→21:30)
[2019-06-06] MEDS ORDERED: VANCOMYCIN HCL INJ 1,000 MG VIAL IVPB ONE (07:50)
[2019-06-06] MEDS: ASPIRIN (CHEWABLE) 81 MG TAB PO SCH (08:02)
[2019-06-06] MEDS: CYANOCOBALAMIN 1,000 MCG TAB PO SCH (08:02)
[2019-06-06] MEDS: GABAPENTIN 300 MG CAP PO SCH ×3 (08:02→20:18)
[2019-06-06] MEDS: NITROGLYCERIN 0.4 MG/HR PATCH TOP SCH (08:03)
[2019-06-06] MEDS: VANCOMYCIN HCL INJ 1,000 MG, VANCOMYCIN HCL INJ 500 MG in SODIUM CHLORIDE 0.9% 250ML 25... IVPB SCH (12:14)
--- NOTE | 2019-06-06 14:39 | PN ---
DATE: 06/06/19 SUPERVISING PHYSICIAN: Arun Beth M.D. SUBJECTIVE: The patient is sleeping. She awakens easily. Said she feels some better since she received her blood. Denies chest pain, shortness of breath, nausea or vomiting. OBJECTIVE: VITAL SIGNS: Temperature 98.2, heart rate 77, blood pressure 129/83, respiratory rate 16, O2 sat 97% on room air. RESPIRATORY: Diminished at the bases but otherwise clear to auscultation. CARDIAC: Regular rate, irregular rhythm. GASTROINTESTINAL: Abdomen is soft, nondistended, non-tender. Bowel sounds are positive. SKIN: Dressings to her right lateral hip are dry and intact. She does have a very small amount of sanguinous fluid in her J-P drain. NEUROLOGIC: She is awake and alert. LABORATORY: WBC this morning was 5.7, hemoglobin yesterday evening was 7.7 with hematocrit 23.2. This morning, it was 8.1 and 25. Wound cultures show no growth after 2 days. Preliminary blood cultures show no growth after 4 days. All other labs and films have been reviewed via the EMR. ASSESSMENT: 1. Right buttocks cellulitis status post I&D per Dr. Hassan, general surgeon, postoperative day #3. 2. Anemia most likely due to chronic illness. Received 1 unit of packed red blood cells yesterday. 3. Acute on chronic kidney disease that has improved. 4. History of congestive heart failure with no evidence of acute exacerbation. 5. Gastroesophageal reflux disease. 6. Hypertension. PLAN: We will continue present supportive care. She received 1 unit of packed red blood cells yesterday and hopefully tomorrow she can be discharged to [facility]. At this point, we are waiting on approval from her insurance to return to [facility]. I will recheck her labs in the morning and plan for discharge sometime tomorrow pending her insurance approval. Otherwise will continue to monitor closely and follow as needed. [facility][id number] [facility]
[2019-06-06] MEDS: ATORVASTATIN 20 MG TAB PO SCH (20:18)
[2019-06-06] MEDS: ACETAMINOPHEN W/COD #3 TAB 1 EA TAB PO PRN (20:35)
[2019-06-07] MEDS: CLINDAMYCIN IV 600MG 600 MG in PREMIX BAG 1 BAG IVPB SCH ×4 (03:33→21:23)
[2019-06-07] MEDS ORDERED: CLINDAMYCIN IV 600MG 50 ML IVPB ONE ×5 (07:15→21:30)
[2019-06-07] MEDS ORDERED: VANCOMYCIN HCL INJ 500 MG VIAL ONE ×2 (07:16→19:11)
[2019-06-07] MEDS ORDERED: SODIUM CHLORIDE 0.9% 250ML 0 ML ONE (07:17)
[2019-06-07] MEDS ORDERED: VANCOMYCIN HCL INJ 1,000 MG VIAL IVPB ONE ×2 (07:17→19:11)
[2019-06-07] MEDS: CYANOCOBALAMIN 1,000 MCG TAB PO SCH (08:19)
[2019-06-07] MEDS: ASPIRIN (CHEWABLE) 81 MG TAB PO SCH (08:20)
[2019-06-07] MEDS: NITROGLYCERIN 0.4 MG/HR PATCH TOP SCH (08:20)
[2019-06-07] MEDS: GABAPENTIN 300 MG CAP PO SCH ×3 (08:20→21:21)
[2019-06-07] MEDS ORDERED: SPIRONOLACTONE 50 MG PO SCH (10:45)
[2019-06-07] MEDS: CITALOPRAM HBR 20 MG TAB PO SCH (10:50)
[2019-06-07] MEDS: SPIRONOLACTONE 25 MG TAB PO SCH (10:50)
[2019-06-07] MEDS: FUROSEMIDE 40 MG TAB PO SCH (10:50)
[2019-06-07] MEDS ORDERED: SPIRONOLACTONE 25 MG TAB PO SCH (11:00)
[2019-06-07] MEDS ORDERED: MAGNESIUM SULFATE PREMIX 2GM 2 GM in PREMIX BAG 1 BAG IVPB ONE (11:20)
[2019-06-07] MEDS ORDERED: MAGNESIUM SULFATE PREMIX 2GM 50 ML IVPB ONE (11:58)
--- NOTE | 2019-06-07 14:09 | PN ---
SUPERVISING PHYSICIAN: Claudia Steven MD DATE: 06/07/19 SUBJECTIVE: The patient is resting comfortably. She feels a little bit better than yesterday. She has had no further complaints. She notes her pain has been controlled. OBJECTIVE: VITAL SIGNS: Temperature 97.8. Pulse 90. Blood pressure 137/82. Respirations 18. Oxygen saturation 94% on room air. CHEST: Lungs clear to auscultation bilaterally. HEART: Regular rate and rhythm. ABDOMEN: Soft, nontender. Positive bowel sounds. SKIN: Dressing remains in place to the right lateral hip. It is dry and intact. CAROLE drain shows continued sanguineous fluid. NEUROLOGIC: Alert and oriented times three. LABORATORY: White count stable at 6,600. Hemoglobin up to 8.5, hematocrit 25.6, platelet count 230,000. Differential is without a left shift. Chemistry showing a mildly low sodium at 129, stable potassium at 3.4, BUN 12, creatinine down to 1.74, magnesium. 15. MICROBIOLOGY: Wound culture showed no growth after 3 days. Blood cultures remain negative after 5 days. ASSESSMENT: 1. Right buttocks cellulitis status post I&D per Dr. Hassan, general surgeon, postoperative day #4, with final wound culture showing no growth. 2. Anemia due to chronic illness, stable after 1 unit of packed red cells. 3. Acute on chronic kidney disease, improved. 4. History of congestive heart failure with no evidence of acute exacerbation. 5. Gastroesophageal reflux disease. 6. Hypertension. 7. Electrolyte imbalance with hyponatremia, likely chronic, and hypomagnesemia requiring parenteral replacement. PLAN: We will continue current plan of care at this point. [facility] once [facility] insurance has been validated. We will refer to Dr. Hassan for wound management. I have restarted her medications that include her Spironolactone at 25 mg daily with Lasix at 40 mg. I will await her EKG before we start her back on rate control medications. She does remain on antibiotic with clindamycin and vancomycin. I will give her 2 grams of IV magnesium today. We will recheck labs in the morning and hopefully be able to discharge by tomorrow. Until then, we will continue to monitor and treat as needed. [facility][id number] [facility]
[2019-06-07] MEDS ORDERED: SODIUM CHLORIDE 0.9% 250ML 250 ML ONE (19:11)
[2019-06-07] MEDS: ATORVASTATIN 20 MG TAB PO SCH (21:21)
[2019-06-07] MEDS: VANCOMYCIN HCL INJ 1,000 MG, VANCOMYCIN HCL INJ 500 MG in SODIUM CHLORIDE 0.9% 250ML 25... IVPB SCH (23:16)
[2019-06-07] MEDS: IV SET AND CAP CHANGE INJ INJ SCH (23:17)
[2019-06-08] MEDS: CLINDAMYCIN IV 600MG 600 MG in PREMIX BAG 1 BAG IVPB SCH ×2 (03:51→10:07)
[2019-06-08 08:10] VITALS: TEMP 97.8; O2SAT 93
[2019-06-08] MEDS: ASPIRIN (CHEWABLE) 81 MG TAB PO SCH (08:11)
[2019-06-08] MEDS: FUROSEMIDE 40 MG TAB PO SCH (08:11)
[2019-06-08] MEDS: SPIRONOLACTONE 25 MG TAB PO SCH (08:11)
[2019-06-08] MEDS: GABAPENTIN 300 MG CAP PO SCH (08:11)
[2019-06-08] MEDS: NITROGLYCERIN 0.4 MG/HR PATCH TOP SCH (08:11)
[2019-06-08] MEDS: CITALOPRAM HBR 20 MG TAB PO SCH (08:12)
[2019-06-08] MEDS: CYANOCOBALAMIN 1,000 MCG TAB PO SCH (08:12)
[2019-06-08] MEDS ORDERED: MAGNESIUM SULFATE PREMIX 2GM 2 GM in PREMIX BAG 1 BAG IVPB ONE (08:53)
[2019-06-08] MEDS ORDERED: MAGNESIUM SULFATE PREMIX 2GM 50 ML IVPB ONE (08:55)
[2019-06-08 09:09] VITALS: BP 135/85
[2019-06-08] MEDS ORDERED: CLINDAMYCIN IV 600MG 50 ML IVPB ONE (10:04)
--- NOTE | 2019-06-09 16:22 | DS ---
SUPERVISING PHYSICIAN: Wesly Steven M.D. ADMISSION DIAGNOSIS: 1. Right buttocks cellulitis with question of fluid collection/hematoma. 2. Anemia. 3. Acute on chronic kidney disease. 4. History of coronary artery disease and congestive heart failure with no evidence of acute exacerbation. 5. Gastroesophageal reflux disease. 6. Hypertension. DISCHARGE DIAGNOSIS: 1. Right buttocks cellulitis status post I&D per Dr. Hassan, general surgeon, postoperative day #5, with final wound culture showing no growth. 2. Anemia due to chronic illness, stable after 1 unit of packed red cells. 3. Acute on chronic kidney disease, improved. 4. History of congestive heart failure with no evidence of acute exacerbation. 5. Gastroesophageal reflux disease. 6. Hypertension. 7. Electrolyte imbalance with hyponatremia, likely chronic, and hypomagnesemia requiring parenteral replacement. REASON FOR HOSPITALIZATION: This is a 73-year-old female who came to the Emergency Room due to a draining wound to the right buttock. Apparently, she fell back in January and developed some sort of abrasion at that time. She did have a little bit of swelling over the past couple of days. The swelling has gotten much worse as well as the erythema and started to drain some serosanguineous fluid. She was seen by Dr. Dillon at his office and then was subsequently seen at the Emergency Room. Dr. Dillon's wish was for Dr. Hassan to evaluate the patient to see if it needed to be drained. The patient was seen in the Emergency Room and given a dose of clindamycin and subsequently referred for admission. A CT scan or an ultrasound have not been done to see if there is a fluid collection. We did review the labs and there is no elevation of white count, hemoglobin 8.9. ESR 125. INR 1.32, but she is on Eliquis. Sodium 129, BUN elevated at 32 and creatinine at 2.56. CRP 3.4. At the time of examination, the patient is alert and oriented without distress. Vital signs are acceptable at this time. LABORATORY STUDIES: White count was showing to be stable, at discharge was 6,600. Hemoglobin and hematocrit did show a significant decline requiring transfusion of 2 units packed red blood cells and it went from 8.1 and 25.3 to 7.7 and 23.2 respectively. After units of transfusion was showing to be stable and at discharge was 8.9 and 27.3. Platelet count was within normal limits at 230,000. Differential showed to be without a left shift. Coagulation studies showed a slightly elevated PT at 13.2, PTT normal at 26.7. Chemistries on the showing sodium 132, potassium 3.5, BUN 10, creatinine 1.64 which is dramatically improved from admission. Magnesium 1.7, calcium 10.6. Urinalysis showed just a trace of intact blood. He had several vancomycin troughs, the last one being on 06/06, she had 18.0. MICROBIOLOGY: Wound culture of the buttocks was without any growth. Blood cultures remain negative after 5 days on discharge. RADIOLOGY: Findings suggestive of congestive heart failure observed but no focal infiltrate was detected. She had several other procedures, including a pelvis CT that showed a large complicated fluid collection, liquifying hematoma versus abscess of the right buttocks. Contacting the right posterior overlying skin with mass effect on the right gluteal muscles. No mass or inflammatory changes or free fluid in the pelvis. She then had a cystic aspiration by ultrasound which showed a solid and fluid hypoechogenic and hyperechogenic echos inferior lateral right buttocks. There was successful sterile ultrasound guided sterile placement of drainage catheter into the complex right lateral buttocks fluid collection with 600 mL removed initially with drainage catheter and came back with results into the lab with no growth being noted. PROCEDURES: 1. Incision and evacuation of hematoma of the right hip. 2. Drain placement over the right gluteus. MEDICAL CONSULTATION: Dr. Hassan for incision and drainage of the hematoma for a right hip hematoma evacuation and J-P drain placement. HOSPITAL COURSE: Ms. Rivera was admitted for hematoma with concerns for abscess which was drained initially and required incision and drainage. She was kept on antibiotics the entire hospitalization. She was no longer showing any symptoms. She was to return home to continue with outpatient management. PLAN: The plan was to discharge back to [facility]. Activity was increase as tolerated as per Physical Therapy with PT to evaluate and treat. Wound care management was to shower daily and cleanse with soap and water in the show but keep wound clean and dry. She was to resume her usual diet as tolerated. Medications were resume as previous medical administration record. She was told to return to the [facility] should she have any concerning symptoms or call Dr. Hassan's office with any questions. Medications on discharge included: 1. Tylenol #3 one to two every 6 hours as needed for pain, #30. No refills. 2. Magnesium oxide tablets 400 mg b.i.d. 3. Multivitamins with iron 1 tablet daily, #30. 4. Spironolactone 25 mg daily. Ms. Rivera is discharged on 06/07 to followup with her primary care provider in 5 days through [facility]. DISPOSITION: The patient is discharged back to [facility]. Condition on discharge was stable and improved. [facility][id number] [facility]
== END 2019-06-08 12:51 | disposition home or self-care (01) | DRG 605 ==
LOC: ER 16:04 → MS 22:16 → OBSVTOIN 22:16
PROVIDERS: ADMIT Nurse Practitioner; ATTEND Nurse Practitioner Family
PROC: 0JC90ZZ Extirpation of Matter from Buttock Subcutaneous Tissue and Fascia, Open Approach (ICD-10-PCS; 2019-06-03)
PROC: 0JCL0ZZ Extirpation of Matter from Right Upper Leg Subcutaneous Tissue and Fascia, Open Approach (ICD-10-PCS; 2019-06-03)
PROC: 30233N1 Transfusion of Nonautologous Red Blood Cells into Peripheral Vein, Percutaneous Approach (ICD-10-PCS; principal; 2019-06-05)
DX: S30.0XXA Contusion of lower back and pelvis, initial encounter (principal); L03.317 Cellulitis of buttock; E87.1 Hypo-osmolality and hyponatremia; I13.0 Hypertensive heart and chronic kidney disease with heart failure and stage 1 through stage 4 chronic kidney disease, or unspecified chronic kidney disease; Z68.41 Body mass index [BMI] 40.0-44.9, adult; N28.9 Disorder of kidney and ureter, unspecified; N18.9 Chronic kidney disease, unspecified; D63.1 Anemia in chronic kidney disease; I50.9 Heart failure, unspecified; I25.10 Atherosclerotic heart disease of native coronary artery without angina pectoris; K21.9 Gastro-esophageal reflux disease without esophagitis; E83.42 Hypomagnesemia; W19.XXXA Unspecified fall, initial encounter; Y92.9 Unspecified place or not applicable; E78.5 Hyperlipidemia, unspecified; E66.9 Obesity, unspecified; I25.2 Old myocardial infarction; Z86.14 Personal history of Methicillin resistant Staphylococcus aureus infection; Z79.01 Long term (current) use of anticoagulants; Z79.82 Long term (current) use of aspirin; Z79.899 Other long term (current) drug therapy

== ENCOUNTER 2019-07-02 05:40 | Day surgery (SDC) | payer MEDICARE, MEDICAID ==
[2019-07-02] MEDS ORDERED: SODIUM CHL 0.9% 100ML MINI-BAG 100 ML IVPB ONE (06:00)
[2019-07-02] MEDS ORDERED: LACTATED RINGERS 1,000 ML ONE (06:00)
[2019-07-02] MEDS ORDERED: ceFAZolin SODIUM 1 GM VIAL ONE (06:00)
[2019-07-02] MEDS ORDERED: LIDOCAINE 1% 10 ML VIAL INJ ONE (07:00)
[2019-07-02] MEDS ORDERED: PROPOFOL 200 MG/20 ML VIAL IV ONE (07:00)
[2019-07-02 09:49] VITALS: O2SAT 97
[2019-07-02] MEDS ORDERED: KETAMINE HCL 100 MG/ML VIAL ONE (10:40)
[2019-07-02] MEDS ORDERED: fentaNYL CITRATE INJ 50 MCG/ML AMP ONE (10:40)
[2019-07-02] MEDS ORDERED: MIDAZOLAM INJ 2 MG/2 ML VIAL ONE (10:54)
[2019-07-02] MEDS ORDERED: BUPIVACAINE 0.5% W/EPI 30 ML VIAL INJ ONE (10:54)
--- NOTE | 2019-07-02 13:13 | OP ---
DATE OF PROCEDURE: 07/02/19 PREOPERATIVE DIAGNOSIS: 1. Previous hematoma with possible infection. POSTOPERATIVE DIAGNOSIS: 1. Residual hematoma times 2. PROCEDURE: 1. Evacuation of hematoma times 1. 2. Evacuation of hematoma, separate site. 3. Excisional debridement of subcutaneous fatty tissue, 15 by 6 cm. 4. Intraoperative ultrasound for evaluation and management. SURGEON: Reynold Hassan MD. ANESTHESIA: General and local. FINDINGS: The gluteus was large and swollen. The previous drain site had been removed due to no more output. Ultrasound was used and in the superior portion, we found a long track about 3 cm by 12 of fluid hematoma. We tried to aspirate and only got a slight bit of blood, so I suspect residual hematoma. PROCEDURE: A small cut was made. We went down, assessed this and then evacuated with suction. This was packed. The larger area that was of more concern that had been draining more consistently with the previous drain, we could see with the ultrasound it was a conglomeration of fluid and mixed soft tissues, likely old fibrinous hematoma. A cut was made adequate to excise this and indeed there was a lot of gelatinous and fibrinous hematoma material that would not have gotten absorbed solo, nor could have been removed with the drain. We proceeded to debride this and remove it with the [place] as well as irrigation and suction. It was fixed to the surrounding fatty tissue, so it had to be taken off aggressively. This was about 15 by 6 cm, the entire cavity. Once this was all removed, it was irrigated with saline. There was no active bleeding. She has been off her Eliquis for 2 days. The area was then packed with Kerlix. Overall, we evacuated hematoma from 2 separate sites and excisionally debrided the tissue in the one and also used intraoperative ultrasound. She tolerated the procedure. We did do a culture. There is no sign of gross infection at this time. She was taken to Recovery to be discharged. #[id number] cc: Michael Dillon MD [facility]
[2019-07-02 13:35] VITALS: BP 116/76; TEMP 96.5
== END 2019-07-02 13:05 ==
LOC: AMB 05:40
PROVIDERS: ATTEND Surgery
DX: L76.32 Postprocedural hematoma of skin and subcutaneous tissue following other procedure (principal); D64.9 Anemia, unspecified; I25.10 Atherosclerotic heart disease of native coronary artery without angina pectoris; E78.00 Pure hypercholesterolemia, unspecified; K21.9 Gastro-esophageal reflux disease without esophagitis; I10 Essential (primary) hypertension; Z90.711 Acquired absence of uterus with remaining cervical stump; Z88.6 Allergy status to analgesic agent; Z79.82 Long term (current) use of aspirin; Z79.01 Long term (current) use of anticoagulants; Z79.899 Other long term (current) drug therapy
CPT/HCPCS: 00300; 10140; 11042; 87070; 88305; J0690; J2250; J3010; J3490; J7050; J7120

== ENCOUNTER 2019-07-16 11:23 | Inpatient (IN) | payer MEDICARE, MEDICAID ==
--- NOTE | 2019-07-16 12:32 | RAD ---
EXAM DESCRIPTION: Chest,1 View CLINICAL HISTORY: 73 years Female, hypoxia, ams, edema COMPARISON: 06/01/2019. TECHNIQUE: AP radiograph of the chest was obtained. FINDINGS: Trachea is midline.The cardiomediastinal silhouette is enlarged in size. Bilateral pulmonary vascular congestion is noted. Possible pulmonary edema in the bilateral lower lobes.No evidence of pleural effusions. IMPRESSION: Enlarged cardiac silhouette with pulmonary vascular congestion and pulmonary edema representing changes of congestive heart failure. Electronically signed by: Chantale Matos MD 07/16/2019 12:30 PM [facility]
[2019-07-16] MEDS ORDERED: SODIUM CHLORIDE 0.9% 1000ML 500 ML IVS ONE (13:00)
--- NOTE | 2019-07-16 13:52 | CT ---
EXAM DESCRIPTION: Abdoment/Pelvis w/o Contrast CLINICAL HISTORY: 73 years Female, arf, anemia, COMPARISON: CT abdomen and pelvis dated 04/17/2018. TECHNIQUE: Contiguous 3 mm axial images were obtained from the lung bases to the level of the proximal femora without the administration of intravenous or oral contrast. Sagittal and coronal reconstructions were reviewed. FINDINGS: Limited evaluation of the solid organs due to the lack of intravenous contrast. THORAX: The heart is enlarged in size with coronary artery atherosclerosis. Few tree-in-bud airspace opacities are identified in the visualized left lower lobe, concerning for pneumonia. LIVER: The liver demonstrates normal size and density with no intrahepatic biliary ductal dilatation. GALLBLADDER: Multiple gallstones are identified. PANCREAS: Appears normal with no cystic or solid lesions. SPLEEN: Normal ADRENAL GLANDS: Normal with no nodules or masses. KIDNEYS: Few simple cysts are identified in the right kidney. Left kidney appears grossly unremarkable. The visualized ureters appear grossly unremarkable. STOMACH: Mildly distended with no gross abnormality. SMALL BOWEL: The small bowel loops demonstrate variable degrees of distention with no abnormal dilatation or other signs to suggest bowel obstruction. LARGE BOWEL: Mild constipation. The appendix is well-visualized and appears normal No evidence of free intraperitoneal air. Trace free fluid is identified in the perihepatic and perisplenic regions. RETROPERITONEUM: The abdominal aorta is nonaneurysmal with moderate to severe atherosclerosis. The inferior vena cava is normal in size and caliber. No abnormally enlarged retroperitoneal lymph nodes are identified. URINARY BLADDER:The urinary bladder is well-distended with no gross abnormality. The uterus and ovaries are surgically absent. ADDITIONAL FINDINGS: None. BONES: Mild degenerative changes are identified in the visualized bones. The visualized bones appear osteopenic. IMPRESSION: 1. Cholelithiasis. 2. Nonspecific small amount of free fluid is noted in the perihepatic and perisplenic region. 3. Tree-in-bud airspace opacities in the visualized left lower lobe most likely represent pneumonia. This exam was performed according to our departmental dose-optimization program, which includes automated exposure control, adjustment of the mA and/or kV according to patient size and/or use of iterative reconstruction technique. Electronically signed by: Chantale Matos MD 07/16/2019 1:50 PM DIRECTOR OF CONSTRUCTION
[2019-07-16] MEDS ORDERED: IODOFORM 1INCH 1 EA BTTL TOP ONE (14:18)
[2019-07-16] MEDS ORDERED: SODIUM CHLORIDE 0.9% 250ML 250 ML ONE (14:45)
[2019-07-16] MEDS ORDERED: LINEZOLID IV 600 MG in PREMIX BAG 1 BAG IVPB ONE (14:49)
[2019-07-16] MEDS ORDERED: cefTRIAXone SODIUM 1 GM in SODIUM CHL 0.9% 50ML MIN-BAG+ 50 ML IVPB ONE (14:49)
[2019-07-16] MEDS ORDERED: methylPREDNISolone SODIUM SUC 125 MG/2 ML VIAL IV ONE (14:50)
--- NOTE | 2019-07-16 15:53 | ED.PDOC ---
History of Present Illness - General Chief Complaint: General Stated Complaint: Lethargy, weakness Time Seen by Provider: 07/16/19 11:32 Source: patient Exam Limitations: clinical condition - History of Present Illness Initial Comments: the patient is a 73-year-old female presenting to the emergency roomsecondary to altered mental status and some low oxygen levels. The patient does have a history of congestive heart failure and chronic anemia as well as chronic renal insufficiency. She also has a right posterior buttock surgical site that requires packing each day. The patient is more significantly confused today than normal. She is pleasant and cooperative. Blood pressures are low for her in the 80s to 90s over 60s. Oxygen saturations are also low without oxygen around 80-88%. Again this is in the presence of low blood pressure. She is not having any abdominal pain. No syncope. The patient is significantly weaker than normal in general. No focal neurological changes. She is sleepy. physical exam shows that the patient is fairly pale. Her right most medial buttock wound is draining frankly purulent material. The more lateral wound is fairly clean. No history of any mynor bleeding.the patient does have a history of CHF and peripheral edema for which she takes several daily diuretics. Timing/Duration: unsure Severity: severe Improving Factors: nothing Worsening Factors: nothing Allergies/Adverse Reactions: Allergies NO KNOWN ALLERGY Allergy (Verified 09/05/16 13:36) Home Medications: Ambulatory Orders Apixaban [Eliquis] 2.5 mg PO BID 09/05/16 Lisinopril 40 mg PO DAILY 09/05/16 Metoprolol Succinate [Metoprolol Succinate ER] 50 mg PO DAILY 09/05/16 Atorvastatin Calcium 40 mg PO BEDTIME 04/21/18 Furosemide Tab [Lasix Tab] 40 mg PO DAILY 04/21/18 hydrALAZINE HCl [HydrALAzine HCl] 25 mg PO TID 04/21/18 Nitroglycerin Patch 0.4 mg/Hr [Nitro-Dur PATCH 0.4 mg/hour] 0.4 mg TOP QD 02/01/19 Aspirin [Aspirin Low Strength] 81 mg PO DAILY 03/04/19 Clonidine HCl 0.1 mg PO Q12HR PRN 03/04/19 Cyanocobalamin [Vitamin B 12] 500 mcg PO DAILY 03/04/19 Gabapentin 300 mg PO TID 03/04/19 Acetaminophen [Tylenol] 1,000 mg PO BEDTIME 06/02/19 Cetirizine HCl [Zyrtec] 10 mg PO DAILY 06/02/19 Citalopram Hydrobromide 10 mg PO DAILY 06/02/19 Docusate Sodium [Colace] 100 mg PO BID 06/02/19 Fluticasone Prop 0.05% Nasal [Flonase Nasal [place]] 50 mcg DEREK BID 06/02/19 Pantoprazole Tablet [Protonix] 40 mg PO DAILY 06/02/19 Acetamin W/Cod #3 Tab [Tylenol w/CODEINE #3] 1 - 2 ea PO Q6HR PRN #30 tab 06/08/19 Magnesium Oxide [Mag-Ox Tab] 400 mg PO BID #30 tab 06/08/19 Multiple Vitamins W/ Iron [Multi Vitamin with Iron] 1 tab PO DAILY #30 tab 06/08/19 Spironolactone [Aldactone] 25 mg PO DAILY tab 06/08/19 Review of Systems - Review of Systems Constitutional: States: malaise, weakness EENTM: States: no symptoms reported Respiratory: States: no symptoms reported Cardiology: States: edema Gastrointestinal/Abdominal: States: no symptoms reported Genitourinary: States: no symptoms reported Musculoskeletal: States: see HPI Skin: States: see HPI Neurological: States: see HPI Endocrine: States: no symptoms reported All other Systems: No Change from Baseline Past Medical History (General) - Patient Medical History Hx Seizures: No Hx Stroke: No Hx Asthma: No Hx of COPD: No Hx Cardiac Disorders: Yes - Atrial fib; hx of [place]; cardiac stents Hx Congestive Heart Failure: Yes Hx Pacemaker: No Hx Hypertension: Yes Hx Diabetes: No Hx Gastroesophageal Reflux: Yes Hx Cancer: Yes - Uterine-remission Hx MRSA: No Surgical History: other - Vaccination History Hx Tetanus, Diphtheria Vaccination: No Hx Influenza Vaccination: Yes - 04/26/19 Hx Pneumococcal Vaccination: Yes - 02/06/19 - Social History Hx Tobacco Use: No Hx Alcohol Use: No Hx Substance Use: No Hx Substance Use Treatment: No Hx Depression: No Hx Physical Abuse: No Hx Emotional Abuse: No - Activities of Daily Living [facility] applicable[facility] [place] - Female History Patient : No Family Medical History - Family History Mother Family History: Unknown Living Status: Hx Family Asthma: Yes - father Hx Family Congestive Heart Failure: Yes - father Hx Family Hypertension: Yes - father Hx Cardiac Disease: Yes - father Hx Family Cancer: Yes - lungs-mom Father Living Status: Cause of : [place] Hx Cardiac Disease: Yes Physical Exam - Physical Exam General Appearance: Alert - but drowsy. She is confused., Ill Appearing Eye Exam: bilateral normal Ears, Nose, Throat: hearing grossly normal - chronically decreased for her bilaterally., normal pharynx Neck: full range of motion, supple Respiratory: no respiratory distress, no accessory muscle use, other - she does have mild occasional scattered rhonchi. Fair air movement. No real wheezing. Cardiovascular/Chest: normal peripheral pulses, other - regular rate Peripheral Pulses: radial,right: 2+, radial,left: 2+, dorsalis pedis,right: 2+, dorsalis pedis,left: 2+ Gastrointestinal/Abdominal: non tender, soft Rectal Exam: deferred, other - wounds to the right buttock as above. Back Exam: no vertebral tenderness Extremity: normal range of motion, non-tender, pedal edema Neurologic: ceramic sprayer II-XII nml as tested, other - the patient is significantly confused. She is responsive. She does move all extremities but she is weak. Skin Exam: pallor Comments: Vital Signs - 24 hr 07/16/19 07/16/19 07/16/19 11:30 12:36 14:54 Temperature 97.1 F L 97.1 F L Pulse Rate [ 70 58 L Left Radial] Respiratory 22 20 Rate Blood Pressure 115/68 [Left Arm] O2 Sat by Pulse 98 98 96 Oximetry 07/16/19 07/16/19 15:00 15:15 Temperature 96.8 F L 97.2 F L Pulse Rate [ 61 64 Left Radial] Respiratory 20 18 Rate Blood Pressure 86/61 84/64 [Left Arm] O2 Sat by Pulse 100 100 Oximetry Progress - Progress Progress: 07/16/19 15:57 the patient a 73-year-old female presenting in very critical shape secondary to multiple processes. First and probably most emergent is that the patient has severe symptomatic anemia. This is likely long-standing and progressive related to renal function. GI evaluation in the future may yet be warranted. No history of any recent mynor blood loss. The patient is going to receive 2 units of packed red blood cells. Is likely causing the CHF exacerbation. She does have some mild hypoxia and is responding nicely to low flow oxygen. I'm not giving any diuretics at this point. The patient has acute renal failure. His is likely also multifactorial. She did have some chronic renal failure to start with. She did receive a small IV fluid bolus and is receiving blood. I have discussed the patient with Dr. Granger, her bottom man who is in agreement with this measure. The plan is to gently rehydrate, correct the anemia And correct the hypotension to perfuse the kidneys and see how she responds. Additionally the patient does likely have some component of sepsis from an infected right buttock wound. A wound culture has been done. The patient is being placed on IV linezolid and Rocephin. lactic acid is not markedly elevated. Follow-up primarily for correction of the hypotension. Adm it for continued care. Delirium should improve with correction of the above issues. mortality for this patient is very high. Critical care time spent is 55 minutes excluding otherwise billable procedures. [email or web address] [id number] - Results/Orders Results/Orders: chest x-ray is consistent with CHF exacerbation. CT scan of abdomen and pelvis shows no acute pathology though she does have some free air to the right buttock area otherwise. See report for details. EKG shows somewhat low voltage. She does have a significant conduction delay and form of a right bundle branch block. Diffuse nonspecific ST changes otherwise. All the above findings are consistent with her previous EKG. No evidence of any acute ST elevation. This appears to be atrial fibrillation is rate controlled at 64 bpm. Laboratory Tests 07/16/19 07/16/19 07/16/19 11:54 11:54 11:54 WBC 11.7 H RBC 2.29 L Hgb 6.9 L* Hct 21.2 L MCV 92.6 MCH 30.3 MCHC 32.8 L RDW 17.1 H Plt Count 319 MPV 7.8 Absolute Neuts (auto) 10.10 H Absolute Lymphs (auto) 0.80 L Absolute Monos (auto) 0.80 Absolute Eos (auto) 0.00 Absolute Basos (auto) 0.00 Neutrophils % 86.0 H Lymphocytes % 6.6 L Monocytes % 7.1 Eosinophils % 0.1 L Basophils % 0.2 PT 17.0 H INR 1.71 H PTT (SP) 31.1 Sodium 129 L Potassium 5.6 H Chloride 95 L Carbon Dioxide 22 Anion Gap 17.6 BUN 85 H Creatinine 6.18 H* BUN/Creatinine Ratio 13.8 Random Glucose 89 Serum Osmolality 284.2 Lactic Acid Calcium 11.0 H Magnesium 2.8 H Total Bilirubin 0.7 AST 58 H ALT 30 Alkaline Phosphatase 85 Creatine Kinase 78 CK-MB (CK-2) 5.9 H* CK-MB (CK-2) % Not Reportable Troponin I 0.05 B-Natriuretic Peptide 3240.0 H* Serum Total Protein 9.9 H Albumin 2.3 L Globulin 7.6 H Albumin/Globulin Ratio 0.3 L Urine Color Urine Appearance Urine pH Ur Specific [place] Urine Protein Urine Glucose (UA) Urine Ketones Urine Blood Urine Nitrite Urine Bilirubin Urine Urobilinogen Ur Leukocyte Esterase Urine RBC Urine WBC Ur Epithelial Cells Amorphous Sediment Urine Bacteria Patient ABO/Rh Antibody Screen Crossmatch 07/16/19 07/16/19 07/16/19 11:54 12:20 14:11 WBC RBC Hgb Hct MCV MCH MCHC RDW Plt Count MPV Absolute Neuts (auto) Absolute Lymphs (auto) Absolute Monos (auto) Absolute Eos (auto) Absolute Basos (auto) Neutrophils % Lymphocytes % Monocytes % Eosinophils % Basophils % PT INR PTT (SP) Sodium Potassium Chloride Carbon Dioxide Anion Gap BUN Creatinine BUN/Creatinine Ratio Random Glucose Serum Osmolality Lactic Acid 2.0 Calcium Magnesium Total Bilirubin AST ALT Alkaline Phosphatase Creatine Kinase CK-MB (CK-2) CK-MB (CK-2) % Troponin I B-Natriuretic Peptide Serum Total Protein Albumin Globulin Albumin/Globulin Ratio Urine Color Yellow Urine Appearance Clear Urine pH 6.0 Ur Specific [place] 1.015 Urine Protein 30 Urine Glucose (UA) Negative Urine Ketones Negative Urine Blood Negative Urine Nitrite Negative Urine Bilirubin Negative Urine Urobilinogen 0.2 Ur Leukocyte Esterase Negative Urine RBC 0 Urine WBC 0 Ur Epithelial Cells 0 Amorphous Sediment Trace Urine Bacteria 0 Patient ABO/Rh A POSITIVE Antibody Screen Negative Crossmatch See Detail Departure - Departure Clinical Impression: Symptomatic anemia, Delirium Acute exacerbation of CHF (congestive heart failure) Qualifiers: Heart failure type: combined systolic and diastolic Qualified Code(s): I50.43 - Acute on chronic combined systolic (congestive) and diastolic (congestive) heart failure Acute renal failure Qualifiers: Acute renal failure type: unspecified Qualified Code(s): N17.9 - Acute kidney failure, unspecified Sepsis Qualifiers: Sepsis type: sepsis due to unspecified organism Sepsis acute organ dysfunction status: with acute organ dysfunction Severe sepsis acute organ dysfunction type: acute renal failure Acute renal failure type: unspecified Severe sepsis shock status: with septic shock Qualified Code(s): A41.9 - Sepsis, unspecified organism; R65.21 - Severe sepsis with septic shock; N17.9 - Acute kidney failure, unspecified Disposition: Admit Patient Condition: Poor Departure Forms: ED Discharge - Pt. Copy, Patient Portal Self Enrollment Referrals: Michael Dillon MD [Primary Care Provider] - 1-2 Weeks Home Medications: Ambulatory Orders Apixaban [Eliquis] 2.5 mg PO BID 09/05/16 Lisinopril 40 mg PO DAILY 09/05/16 Metoprolol Succinate [Metoprolol Succinate ER] 50 mg PO DAILY 09/05/16 Atorvastatin Calcium 40 mg PO BEDTIME 04/21/18 Furosemide Tab [Lasix Tab] 40 mg PO DAILY 04/21/18 hydrALAZINE HCl [HydrALAzine HCl] 25 mg PO TID 04/21/18 Nitroglycerin Patch 0.4 mg/Hr [Nitro-Dur PATCH 0.4 mg/hour] 0.4 mg TOP QD 02/01/19 Aspirin [Aspirin Low Strength] 81 mg PO DAILY 03/04/19 Clonidine HCl 0.1 mg PO Q12HR PRN 03/04/19 Cyanocobalamin [Vitamin B 12] 500 mcg PO DAILY 03/04/19 Gabapentin 300 mg PO TID 03/04/19 Acetaminophen [Tylenol] 1,000 mg PO BEDTIME 06/02/19 Cetirizine HCl [Zyrtec] 10 mg PO DAILY 06/02/19 Citalopram Hydrobromide 10 mg PO DAILY 06/02/19 Docusate Sodium [Colace] 100 mg PO BID 06/02/19 Fluticasone Prop 0.05% Nasal [Flonase Nasal [place]] 50 mcg DEREK BID 06/02/19 Pantoprazole Tablet [Protonix] 40 mg PO DAILY 06/02/19 Acetamin W/Cod #3 Tab [Tylenol w/CODEINE #3] 1 - 2 ea PO Q6HR PRN #30 tab 06/08/19 Magnesium Oxide [Mag-Ox Tab] 400 mg PO BID #30 tab 06/08/19 Multiple Vitamins W/ Iron [Multi Vitamin with Iron] 1 tab PO DAILY #30 tab 10/29/19 Spironolactone [Aldactone] 25 mg PO DAILY tab 06/08/19 Decision To Admit - Decistion To Admit Decision to Admit Reason: Medical Nature Decision to Admit Date: 07/16/19 Decision to Admit Time: 16:04
--- NOTE | 2019-07-16 16:04 | HP ---
SUPERVISING PHYSICIAN: Reynold Groves MD CHIEF COMPLAINT: Increasing weakness and lethargy. HISTORY OF PRESENT ILLNESS: Ms. Rivera is a 73 year-old female patient who presented to the Emergency Room today feeling some altered mental status and reportedly low oxygen levels. The patient has a known history of congestive heart failure with some chronic anemia as well as chronic renal insufficiency. She has also recently had a right posterior buttock hematoma removed surgically and is currently under wound management for that. Patient is reporting more confused than normal but pleasant and cooperative. Initially, her blood pressure in the Emergency Room did show she was in 80s systolic with oxygen levels showing to be 88%. She was not reporting any abdominal pain, no reported syncopal episodes, just generalized more weakness than normal. Laboratory studies showed she was significantly anemic with hemoglobin 6.9 and hematocrit 21.2. Her chemistries also indicated she was in acute renal failure with creatinine initially of 6.18, potassium 5.6. BMP was elevated at 3240. Dr. Granger, shift lab technician, was consulted by Dr. Philippe Spears and after further discussion of the case it was felt the patient was chronically anemia and was likely having some renal failure due to the anemia. Dr. Granger recommended we admit the patient for transfusion of 2 units of packed red blood cells and fluid management and further evaluation. The patient is now going to be admitted for transfusion of 2 units packed red blood cells and further treatment of acute renal failure. She was started on antibiotics given the history of a wound with a slightly elevated white count and left shift initially on admission. She was started on Zyvox and Rocephin after further consultation and discussion with Dr. Granger. The patient was in stable condition at time of admission. PAST MEDICAL HISTORY: 1. Chronic renal insufficiency. 2. Coronary artery disease. 3. Past acute myocardial infarction. 4. Hyperlipidemia. 5. Hypertension. 6. Gastroesophageal reflux disease. 7. Multiple hospitalizations in the past for bilateral pneumonia and hematoma evacuation. 8. Congestive heart failure with last echocardiogram in May 2019 showing a grade 2 diastolic dysfunction and estimated ejection fraction of 55 to 60%. 9. Chronic atrial fibrillation, on Eliquis. PAST SURGICAL HISTORY: 1. Multiple stent placements. 2. Hematoma evacuation in June of right buttock from same level fall. MEDICATIONS: 1. Hydralazine 25 mg t.i.d. 2. Spironolactone 25 mg daily. 3. Protonix 40 mg daily. 4. Nystatin powder 15 grams t.i.d. 5. Nitro patch 0.4 mg daily. 6. Multivitamin 1 tablet daily. 7. Metoprolol succinate 50 mg daily. 8. Mag oxide 400 mg b.i.d. 9. Lisinopril 40 mg daily. 10. Gabapentin 300 mg t.i.d. 11. Lasix 40 mg daily. 12. Flonase 50 mcg b.i.d., both nostrils. 13. Colace 100 mg b.i.d. 14. Vitamin B12, 500 mcg daily. 15. Clonidine 0.1 mg every 12 hours p.r.n. 16. Citalopram 10 mg daily. 17. Zyrtec 10 mg daily. 18. Pravastatin 40 mg daily. 19. Aspirin 81 mg. 20. Eliquis 2.5 mg b.i.d. 21. Tylenol 1000 mg at bedtime. 22. Tylenol No. 3, one or two every 6 hours as needed p.r.n. ALLERGIES: NO KNOWN DRUG ALLERGIES. REVIEW OF SYSTEMS: CONSTITUTIONAL Positive for general malaise and weakness. HEENT: No reported headaches, vision changes, nasal congestion or sore throat. RESPIRATORY: No reported wheezing, coughing, shortness of breath.. CARDIOVASCULAR: No chest pain, palpitations, syncopal episodes. GASTROINTESTINAL: No nausea, vomiting, diarrhea, constipation or abdominal pain. GENITOURINARY: No reported dysuria, hematuria or polyuria. MUSCULOSKELETAL: As noted in history of present illness. Incision to the buttocks. NEUROLOGIC: As noted in history of present illness, increasing lethargy and weakness but no reported seizures, ataxia. PHYSICAL EXAMINATION: VITAL SIGNS: Temperature 97.1, pulse 70, respirations 22, saturation 100% on pulse ox. Blood pressure 86/61. GENERAL: The patient is resting comfortably and appears to be in no acute distress. She is somewhat confused and drowsy but alert. HEENT: Tympanic membranes are clear bilateral. Oropharynx is pink, moist without any lesions. NECK: Supple, non-tender, full range of motion, no jugular venous distention. CHEST: Lung sounds were diminished with just very mild scattered rhonchi, no wheezing or rales. CARDIOVASCULAR: Regular rate and rhythm without appreciable murmurs, rubs, or gallops. ABDOMEN: Obese, soft, non-tender, positive bowel sounds. EXTREMITIES: She has a trace of pedal edema, No clubbing or cyanosis. BACK: No notable vertebral tenderness. NEUROLOGIC: Cranial nerves II through XII are grossly intact with the patient being so confused. She moves all extremities ad janie but is obviously weak. Skin was pale, warm and dry. RECTAL: Deferred with wounds to the right buttocks as noted in the history of present illness. LABORATORY: White count 11,700, hemoglobin 6.9, hematocrit 21.2, platelet count 319,000. Differential does show a left shift. Coagulation studies showed elevated PT and INR but the patient is on Eliquis. Chemistries showed a moderate hyponatremia at 129 with potassium 5.6. BUN 70, elevated from baseline. Creatinine as well at 6.18 with baseline creatinine appearing to be around 1.9 to 2. Lactic acid was normal at 2.0. AST slightly elevated at 58. All other liver functions were within normal limits. Troponin 0.05, BNP 3240. Urinalysis was within normal limits. RADIOLOGY: Abdomen/pelvis CT without contrast showed cholelithiasis with nonspecific amount of free fluid noted in the perihepatic and perisplenic region. There was tree-in-bud air-space opacities visualized in the left lower lung most likely representing pneumonia. Chest x-ray single view per radiology interpretation showed enlarge cardiac silhouette with pulmonary vascular congestion and pulmonary edema representing changes of congestive failure. ASSESSMENT: 1. Acute renal failure probably prerenal due to severe anemia. 2. Severe anemia, symptomatic, with no noted source of acute bleeding, likely chronic exacerbated by decreasing renal function. 3. Acute on chronic congestive heart failure with grade 2 diastolic failure with preserved ejection fraction of approximately 55 to 60%. Last echocardiogram in May 2019 with some exacerbation due to #1 with elevated BNP on admission. 4. Electrolyte imbalance with hypokalemia and hyponatremia secondary to #1. 5. Concerns for developing bilateral pneumonia with elevated white count on admission. 6. Chronic wound to the right buttocks status post hematoma evacuation. 7. History of chronic atrial fibrillation on Eliquis with patient showing a sinus rhythm on admission. 8. Hypertension but showing to be hypotensive secondary to #1. 9. History of previous acute myocardial infarctions with stent placements and history of chronic coronary artery disease. 10. Gastroesophageal reflux disease. PLAN: After speaking with Dr. Granger, shift lab technician, the patient appears to be fairly stable and Dr. Granger requested the patient be admitted here at [facility] and transfused 2 units slowly and reevaluate in the morning with repeat laboratory studies. We will also give 40 of Lasix between each unit. I will resume the home medications once those have been updated and verified. Will hold off on any other fluids other than the packed red blood cells. Will recheck labs in the morning. I anticipate length of stay to be 2 to 3 days. Until we can transition her to outpatient management, we will continue to monitor and treat as needed #[id number] MTDD
[2019-07-16] MEDS ORDERED: cefTRIAXone SODIUM 1 GM VIAL ONE (16:17)
[2019-07-16] MEDS ORDERED: SODIUM CHL 0.9% 50ML MIN-BAG+ 50 ML IVPB ONE (16:17)
[2019-07-16] MEDS ORDERED: LINEZOLID IV 300 ML IVPB ONE (17:06)
[2019-07-16] MEDS ORDERED: FUROSEMIDE INJ 40 MG/4 ML VIAL ONE (17:31)
[2019-07-16] MEDS ORDERED: FUROSEMIDE INJ 40 MG/4 ML VIAL IV ONE (18:00)
[2019-07-16] MEDS ORDERED: SODIUM CHLORIDE 0.9% (FLUSH) 10 ML SYG IV PRN (18:34)
[2019-07-16] MEDS ORDERED: IV SET AND CAP CHANGE INJ INJ SCH (19:00)
[2019-07-17] MEDS ORDERED: AZITHROMYCIN IV 500 MG VIAL IVPB ONE ×2 (00:07→20:29)
[2019-07-17] MEDS ORDERED: SODIUM CHLORIDE 0.9% 250ML 250 ML ONE ×2 (00:07→20:28)
[2019-07-17] MEDS: AZITHROMYCIN IV 500 MG in SODIUM CHLORIDE 0.9% 250ML 250 ML IVPB SCH ×2 (00:09→23:33)
[2019-07-17] MEDS ORDERED: SODIUM CHLORIDE 0.9% (FLUSH) 10 ML SYG IV SCH (09:00)
[2019-07-17] MEDS ORDERED: SODIUM CHL 0.9% 50ML MIN-BAG+ 50 ML IVPB ONE (09:52)
[2019-07-17] MEDS ORDERED: cefTRIAXone SODIUM 1 GM VIAL ONE (09:53)
[2019-07-17] MEDS ORDERED: LINEZOLID IV 300 ML IVPB ONE ×2 (09:53→20:29)
[2019-07-17] MEDS ORDERED: SODIUM BICARBONATE VIAL 50 MEQ/50 ML VIAL ONE ×2 (09:54→17:53)
[2019-07-17] MEDS ORDERED: DEXTROSE 5% 1000ML 1,000 ML IVS ONE ×2 (09:54→17:53)
[2019-07-17] MEDS: LINEZOLID IV 600 MG in PREMIX BAG 1 BAG IVPB SCH ×2 (09:57→21:20)
[2019-07-17] MEDS: cefTRIAXone SODIUM 1 GM in SODIUM CHL 0.9% 50ML MIN-BAG+ 50 ML IVPB SCH (09:57)
[2019-07-17] MEDS: NYSTATIN POWDER 15GM BTTL TOP SCH ×3 (09:58→21:05)
[2019-07-17] MEDS: SODIUM BICARBONATE VIAL 75 MEQ in DEXTROSE 5% 1000ML 1,000 ML IVS PRN ×2 (10:05→18:22)
[2019-07-17] MEDS: ASPIRIN (CHEWABLE) 81 MG TAB PO SCH (10:19)
[2019-07-17] MEDS: DOCUSATE SODIUM 100 MG CAP PO SCH ×2 (10:19→21:03)
[2019-07-17] MEDS: METOPROLOL SUCCINATE XL 50 MG TAB PO SCH (10:20)
[2019-07-17] MEDS: CETIRIZINE HCL 10 MG TAB PO SCH (10:20)
[2019-07-17] MEDS: APIXABAN 5 MG TAB PO SCH ×2 (10:20→21:03)
[2019-07-17] MEDS: PANTOPRAZOLE SODIUM TAB 40 MG PO SCH (10:20)
[2019-07-17] MEDS: CITALOPRAM HBR 20 MG TAB PO SCH (10:20)
[2019-07-17] MEDS: LISINOPRIL 10 MG TAB PO SCH (10:21)
[2019-07-17] MEDS: FLUTICASONE PROP 0.05% NASAL 16 GM BTTL BNAS SCH ×2 (10:21→21:04)
--- NOTE | 2019-07-17 13:59 | PN ---
DATE: 07/17/19 SUPERVISING PHYSICIAN: Reynold Groves M.D. SUBJECTIVE: The patient still remains confused. She did get 2 units of packed red blood cells last night without any complicating factors. She remains afebrile. She is not demonstrating any shortness of breath or respiratory issues. OBJECTIVE: VITAL SIGNS: Temperature 97.2, pulse 67, blood pressure 118/83, respirations 18, satting 99% on 2 liters nasal cannula. I's and O's are showing a negative balance of 58 with weight of 120.7 kg. GENERAL: The patient appears to be resting comfortably in no acute distress. She is alert but still confused. CHEST: Lung sounds just remain diminished towards the bases but no rhonchi, wheezing or rales are noted. HEART: Regular rate and rhythm. ABDOMEN: Obese but soft, non-tender. Positive bowel sounds. EXTREMITIES: Show to be without any edema today. NEUROLOGIC: She remains alert, confused but pleasant. She moves all extremities ad janie. SKIN: Warm, pink and dry. ASSESSMENT: 1. Acute renal failure probably prerenal due to severe anemia. 2. Severe anemia, symptomatic, with no noted source of acute bleeding, likely chronic exacerbated by decreasing renal function. 3. Acute on chronic congestive heart failure with grade 2 diastolic failure with preserved ejection fraction of approximately 55 to 60%. Last echocardiogram in May 2019 with some exacerbation due to #1 with elevated BNP on admission. 4. Electrolyte imbalance with hypokalemia and hyponatremia secondary to #1. 5. Concerns for developing bilateral pneumonia with elevated white count on admission. 6. Chronic wound to the right buttocks status post hematoma evacuation. 7. History of chronic atrial fibrillation on Eliquis with patient showing a sinus rhythm on admission. 8. Hypertension but showing to be hypotensive secondary to #1. 9. History of previous acute myocardial infarctions with stent placements and history of chronic coronary artery disease. 10. Gastroesophageal reflux disease. PLAN: After discussing the case with the patient with Dr. Granger, today will plan to try to do some hydration to see if this will help improve her renal function after she got 2 units of packed red blood cells last night. Will put her on D5W with an amp and a half of bicarb at 125 an hour. I restarted her medications. She is back on her Eliquis. All other medications have been addressed in regards to her kidney function. Will follow labs in the morning and again touch base with Dr. Granger. If she is not showing any significant improvement, certainly at that point hopefully will consider possibly transferring for further management to renal services. Until then will continue to monitor and treat as needed. #[id number] MTDD
[2019-07-17] MEDS: ATORVASTATIN 20 MG TAB PO SCH (21:04)
[2019-07-17] MEDS: GABAPENTIN 300 MG CAP PO SCH (21:05)
[2019-07-17] MEDS: ACETAMINOPHEN 500 MG TAB PO SCH (21:05)
[2019-07-18] MEDS ORDERED: SODIUM BICARBONATE VIAL 50 MEQ/50 ML VIAL ONE ×3 (04:16→20:28)
[2019-07-18] MEDS ORDERED: DEXTROSE 5% 1000ML 1,000 ML IVS ONE ×3 (04:16→20:27)
[2019-07-18] MEDS: SODIUM BICARBONATE VIAL 75 MEQ in DEXTROSE 5% 1000ML 1,000 ML IVS PRN ×3 (04:22→22:21)
[2019-07-18] MEDS: PANTOPRAZOLE SODIUM TAB 40 MG PO SCH (06:07)
[2019-07-18] MEDS ORDERED: SODIUM CHL 0.9% 50ML MIN-BAG+ 50 ML IVPB ONE (08:17)
[2019-07-18] MEDS ORDERED: LINEZOLID IV 300 ML IVPB ONE ×2 (08:18→20:28)
[2019-07-18] MEDS ORDERED: cefTRIAXone SODIUM 1 GM VIAL ONE (08:18)
[2019-07-18] MEDS: LINEZOLID IV 600 MG in PREMIX BAG 1 BAG IVPB SCH ×2 (08:25→21:09)
[2019-07-18] MEDS: ASPIRIN (CHEWABLE) 81 MG TAB PO SCH (08:26)
[2019-07-18] MEDS: LISINOPRIL 10 MG TAB PO SCH (08:26)
[2019-07-18] MEDS: APIXABAN 5 MG TAB PO SCH ×2 (08:26→20:40)
[2019-07-18] MEDS: cefTRIAXone SODIUM 1 GM in SODIUM CHL 0.9% 50ML MIN-BAG+ 50 ML IVPB SCH (08:26)
[2019-07-18] MEDS: DOCUSATE SODIUM 100 MG CAP PO SCH ×2 (08:26→20:39)
[2019-07-18] MEDS: METOPROLOL SUCCINATE XL 50 MG TAB PO SCH (08:26)
[2019-07-18] MEDS: CETIRIZINE HCL 10 MG TAB PO SCH (08:26)
[2019-07-18] MEDS: CITALOPRAM HBR 20 MG TAB PO SCH (08:27)
[2019-07-18] MEDS: NYSTATIN POWDER 15GM BTTL TOP SCH ×3 (08:27→20:40)
[2019-07-18] MEDS: FLUTICASONE PROP 0.05% NASAL 16 GM BTTL BNAS SCH ×2 (08:27→20:40)
[2019-07-18] MEDS: ALBUTEROL SULFATE 2.5 MG/3 ML VIAL NEB SCH ×3 (12:13→20:09)
--- NOTE | 2019-07-18 19:49 | PN ---
DATE: 07/18/19 SUPERVISING PHYSICIAN: Reynold Groves M.D. SUBJECTIVE: The patient seems to be a little bit more awake today but she is still confused. I did discuss the patient's labs this morning since we started her on fluids with Dr. Granger and he feels like she is progressing slowly, but enough and stable enough to stay at [place] at this point, and continue with current treatment plan. She remains afebrile on antibiotics with no signs of diarrhea, nausea or vomiting. OBJECTIVE: VITAL SIGNS: Temperature 97.2, pulse 64, blood pressure 101/71, respirations 16, satting 99% on 2 liters nasal cannula. I's and O's are showing a positive balance of 790. Weight is 120.7 kg. She has had 1 bowel movement. GENERAL: The patient appears to be resting comfortably in no acute distress. She is alert but still confused. CHEST: Lung sounds just remain diminished towards the bases but no rhonchi, wheezing or rales are noted. HEART: Regular rate and rhythm. ABDOMEN: Obese but soft, non-tender. Positive bowel sounds. EXTREMITIES: Show to be without any edema today. NEUROLOGIC: She remains alert, confused but pleasant. She moves all extremities ad janie. SKIN: Warm, pink and dry. LABORATORY: Today, hemoglobin is showing to be stable at 8.2, hematocrit 25.1. Chemistries are showing sodium 127, potassium is now normalized at 4.8, BUN is up to 98 but creatinine is down to 5.93, calcium 10.5. ASSESSMENT: 1. Acute renal failure probably prerenal due to severe anemia, slightly improved with 2 units of packed red blood cells and fluids. 2. Severe anemia, symptomatic, with no noted source of acute bleeding, likely chronic exacerbated by decreasing renal function showing some improvement and stable H&H since 2 units packed red blood cells. 3. Acute on chronic congestive heart failure with grade 2 diastolic failure with preserved ejection fraction of approximately 55 to 60%. Last echocardiogram in May 2019 with some exacerbation due to #1 with elevated BNP on admission with no current signs of exacerbation. 4. Electrolyte imbalance with hypokalemia and hyponatremia secondary to #1. Hypokalemia resolved, now at baseline levels with a slightly worsening hyponatremia likely due to #1. 5. Continued concerns for bilateral pneumonia but showing improvement in white count currently on parenteral antibiotics. 6. Chronic wound to the right buttocks status post hematoma evacuation. 7. History of chronic atrial fibrillation on Eliquis with patient showing a sinus rhythm on admission. 8. Hypertension but showing to be hypotensive secondary to #1. 9. History of previous acute myocardial infarctions with stent placements and history of chronic coronary artery disease. 10. Gastroesophageal reflux disease. PLAN: I once again discussed the case with Dr. Granger. Dr. Granger feels like she is improving but not as quickly as was hoped, but she is stable. Will continue with fluids at this point which is D5W with an amp and a half of sodium bicarb that is running at 125. She remains on Eliquis and all other medications as appropriate to care. Will plan to repeat labs in the morning. Continue with wound management and readdress her renal function in the morning, and discuss the case with Dr. Grnager. Until we can transition to outpatient management will continue to monitor and treat as needed. Once she does stabilize, hopefully we can transfer her back to [facility]. [facility][id number] [facility]ITAL[facility]in[facility]
[2019-07-18] MEDS ORDERED: SODIUM CHLORIDE 0.9% 250ML 250 ML ONE (20:28)
[2019-07-18] MEDS ORDERED: AZITHROMYCIN IV 500 MG VIAL IVPB ONE (20:29)
[2019-07-18] MEDS: GABAPENTIN 300 MG CAP PO SCH (20:39)
[2019-07-18] MEDS: ACETAMINOPHEN 500 MG TAB PO SCH (20:39)
[2019-07-18] MEDS: ATORVASTATIN 20 MG TAB PO SCH (20:40)
[2019-07-18] MEDS: AZITHROMYCIN IV 500 MG in SODIUM CHLORIDE 0.9% 250ML 250 ML IVPB SCH (23:02)
[2019-07-19 04:11] VITALS: O2SAT 99
[2019-07-19] MEDS: PANTOPRAZOLE SODIUM TAB 40 MG PO SCH (06:25)
--- NOTE | 2019-07-19 07:12 | RAD ---
EXAM: XR Chest, 1 View CLINICAL HISTORY: ARF, elevated BNP TECHNIQUE: Frontal view of the chest. COMPARISON: 07/16/2019. FINDINGS: Limitations: None. Lungs: Unremarkable. No consolidation. Pleural space: Unremarkable. No pneumothorax. Heart: Stable cardiac enlargement. Mediastinum: Unremarkable. Bones/joints: Unremarkable. Vasculature: There is increasing vascular congestion. IMPRESSION: There is increasing vascular congestion. Electronically signed by: Stephanie Jaquez MD 07/19/2019 7:10 AM SCREWDOWN OPERATOR
[2019-07-19] MEDS ORDERED: DEXTROSE 5% 1000ML 1,000 ML IVS ONE (07:44)
[2019-07-19] MEDS ORDERED: SODIUM CHL 0.9% 50ML MIN-BAG+ 50 ML IVPB ONE (07:46)
[2019-07-19] MEDS ORDERED: LINEZOLID IV 300 ML IVPB ONE (07:46)
[2019-07-19] MEDS ORDERED: SODIUM BICARBONATE VIAL 50 MEQ/50 ML VIAL ONE (07:46)
[2019-07-19] MEDS ORDERED: cefTRIAXone SODIUM 1 GM VIAL ONE (07:47)
[2019-07-19] MEDS: ALBUTEROL SULFATE 2.5 MG/3 ML VIAL NEB SCH ×2 (08:00→11:30)
[2019-07-19] MEDS: LINEZOLID IV 600 MG in PREMIX BAG 1 BAG IVPB SCH (08:07)
[2019-07-19] MEDS: LISINOPRIL 10 MG TAB PO SCH ×2 (08:08→09:27)
[2019-07-19] MEDS: cefTRIAXone SODIUM 1 GM in SODIUM CHL 0.9% 50ML MIN-BAG+ 50 ML IVPB SCH (08:08)
[2019-07-19] MEDS: ASPIRIN (CHEWABLE) 81 MG TAB PO SCH (08:08)
[2019-07-19] MEDS: DOCUSATE SODIUM 100 MG CAP PO SCH (08:08)
[2019-07-19] MEDS: APIXABAN 5 MG TAB PO SCH (08:09)
[2019-07-19] MEDS: CETIRIZINE HCL 10 MG TAB PO SCH (08:09)
[2019-07-19] MEDS: CITALOPRAM HBR 20 MG TAB PO SCH (08:09)
[2019-07-19] MEDS: FLUTICASONE PROP 0.05% NASAL 16 GM BTTL BNAS SCH (08:16)
[2019-07-19] MEDS: NYSTATIN POWDER 15GM BTTL TOP SCH (08:17)
[2019-07-19] MEDS: METOPROLOL SUCCINATE XL 50 MG TAB PO SCH (08:40)
[2019-07-19] MEDS: SODIUM BICARBONATE VIAL 75 MEQ in DEXTROSE 5% 1000ML 1,000 ML IVS PRN (09:28)
[2019-07-19 12:13] VITALS: BP 108/62; TEMP 97.6
--- NOTE | 2019-07-21 08:53 | DS ---
SUPERVISING PHYSICIAN: Donny Spears MD ADMISSION DIAGNOSIS: 1. Acute renal failure probably prerenal due to severe anemia. 2. Severe anemia, symptomatic, with no noted source of acute bleeding, likely chronic exacerbated by decreasing renal function. 3. Acute on chronic congestive heart failure with grade 2 diastolic failure with preserved ejection fraction of approximately 55 to 60%. Last echocardiogram in May 2019 with some exacerbation due to #1 with elevated BNP on admission. 4. Electrolyte imbalance with hypokalemia and hyponatremia secondary to #1. 5. Concerns for developing bilateral pneumonia with elevated white count on admission. 6. Chronic wound to the right buttocks status post hematoma evacuation. 7. History of chronic atrial fibrillation on Eliquis with patient showing a sinus rhythm on admission. 8. Hypertension but showing to be hypotensive secondary to #1. 9. History of previous acute myocardial infarctions with stent placements and history of chronic coronary artery disease. 10. Gastroesophageal reflux disease. DISCHARGE DIAGNOSIS: 1. Acute renal failure, uncertain etiology, but probably due to severe anemia with some prerenal azotemia, showing improvement with fluids and 2 units of packed red blood cells. 2. Symptomatic anemia with no acute source, likely due to chronic disease process from acute kidney injury, showing stable hemoglobin and hematocrit. 3. Acute on chronic congestive heart failure with grade 2 diastolic failure with preserved ejection fraction of approximately 55 to 60%. Last echocardiogram in May 2019 with some exacerbation due to #1 with elevated BNP and showing resolving symptoms prior to discharge. 4. Electrolyte imbalance secondary to #1 to include hypokalemia and hyponatremia, resolving with fluids and blood transfusions. 5. Chronic wound to the right buttocks status post hematoma evacuation. 6. Chronic atrial fibrillation on chronic anticoagulation with Eliquis, stable with a controlled ventricular rate on admission. 7. Hypertension, at baseline levels on discharge. 8. History of previous acute myocardial infarctions with previous stent placements and severe coronary artery disease. 9. Chronic gastroesophageal reflux disease. 10. Pneumonia treated with Zyvox and Rocephin, showing good improvement prior to discharge. REASON FOR HOSPITALIZATION: Ms. Rivera is a 73 year-old female patient who presented to the Emergency Room today feeling some altered mental status and reportedly low oxygen levels. The patient has a known history of congestive heart failure with some chronic anemia as well as chronic renal insufficiency. She has also recently had a right posterior buttock hematoma removed surgically and is currently under wound management for that. Patient is reporting more confused than normal but pleasant and cooperative. Initially, her blood pressure in the Emergency Room did show she was in 80s systolic with oxygen levels showing to be 88%. She was not reporting any abdominal pain, no reported syncopal episodes, just generalized more weakness than normal. Laboratory studies showed she was significantly anemic with hemoglobin 6.9 and hematocrit 21.2. Her chemistries also indicated she was in acute renal failure with creatinine initially of 6.18, potassium 5.6. BMP was elevated at 3240. Dr. Granger, reeling operator, was consulted by Dr. Philippe Spears and after further discussion of the case it was felt the patient was chronically anemia and was likely having some renal failure due to the anemia. Dr. Granger recommended we admit the patient for transfusion of 2 units of packed red blood cells and fluid management and further evaluation. The patient is now going to be admitted for transfusion of 2 units packed red blood cells and further treatment of acute renal failure. She was started on antibiotics given the history of a wound with a slightly elevated white count and left shift initially on admission. She was started on Zyvox and Rocephin after further consultation and discussion with Dr. Granger. The patient was in stable condition at time of admission. LABORATORY: Initial white count was 11,700. At discharge, it was 7,800 without a left shift. Hemoglobin initially was 69, hematocrit 21.2. After transfusion of 2 units of packed red blood cells and prior to discharge, hemoglobin was 8.1 and hematocrit 24.6. Platelet count 228,000. Chemistries showed acute renal failure with creatinine initially of 6.18. Prior to discharge, it was at 5.27. Sodium initially was 129 and on discharge was 123. Anion gap was normal. BUN was elevated at 85 and on discharge was 92. Calcium was within normal limits on discharge with lactic acid 2.0 on admission. Bilirubin within normal limits. Magnesium slightly high at 2.8. Troponin 0.05 with BNP 3240. Urinalysis was within normal limits. MICROBIOLOGY: Influenza A and B by PCR was negative and culture was pending. Gram stain was pending. RADIOLOGY: Initially, she had a chest x-ray in the emergency room with a single view chest and per radiologic interpretation it showed enlarged cardiac silhouette with pulmonary vascular congestion and pulmonary edema representing changes of congestive heart failure. This was followed up with additional chest x-rays, the last one being on the date of discharge, 07/19/19, and per radiologic interpretation showed increase in vascular congestion. She also had abdominopelvic CT and per radiologic interpretation showed cholelithiasis. There was nonspecific small amount of free fluid noted within the perihepatic and perisplenic region. There was note of tree-in-bud airspace opacities visualized in the left lower lobe, mostly representing pneumonia. HOSPITAL COURSE: Ms. Rivera was admitted for acute kidney failure with associated congestive heart failure exacerbation and questionable developing pneumonia. Dr. Granger was consulted in the Emergency Room by Dr. Spears, the Emergency Room physician, and he felt the patient was stable enough to stay in [place] for treatment of her underlying anemia with transfusion of 2 units of packed red blood cells and fluids. She was given 2 units of packed red blood cells slowly overnight after admission with 40 mg of Lasix between each unit. She had no problems tolerating the units or infusion and had good urine output and no distress. She was then started on D5W sodium bicarb infusion after that which ran for the duration of her hospitalization until discharge under the direction and assistance of Dr. Granger. The patient continued to improve mentally. She was able to get up to a chair. She appeared to be back to baseline mental status. She had no complicating factors. She was treated for the pneumonia which again appeared to be resolving prior to discharge. It was felt she had improved well enough that she could be managed as an outpatient. PLAN: Ms. Rivera was discharged on 07/19/[address] Granger on the Friday after discharge. She was to resume her home medications as directed, which included modification of stopping the spironolactone until she could be seen in followup. She was also to decrease her fluid intake. No antibiotics were prescribed on discharge. She was to return to the Emergency Room if she had any concerning or worsening symptoms. Diet on discharge was diabetic diet as tolerated. Activity to increase as tolerated. CONDITION ON DISCHARGE: Stable and improving. DISPOSITION: The patient was discharged to [facility]. #[id number] MTDD
== END 2019-07-19 12:50 | DRG 682 ==
LOC: ER 11:23 → OBSVTOIN 16:02 → MS 16:02
PROVIDERS: ADMIT Nurse Practitioner Family; ATTEND Nurse Practitioner Family
PROC: 30233N1 Transfusion of Nonautologous Red Blood Cells into Peripheral Vein, Percutaneous Approach (ICD-10-PCS; principal; 2019-07-16)
DX: N17.9 Acute kidney failure, unspecified (principal); I50.33 Acute on chronic diastolic (congestive) heart failure; E87.1 Hypo-osmolality and hyponatremia; J18.9 Pneumonia, unspecified organism; I48.20 Chronic atrial fibrillation, unspecified; I13.0 Hypertensive heart and chronic kidney disease with heart failure and stage 1 through stage 4 chronic kidney disease, or unspecified chronic kidney disease; Z68.42 Body mass index [BMI] 45.0-49.9, adult; D63.8 Anemia in other chronic diseases classified elsewhere; E87.6 Hypokalemia; I95.9 Hypotension, unspecified; I25.10 Atherosclerotic heart disease of native coronary artery without angina pectoris; I25.2 Old myocardial infarction; K21.9 Gastro-esophageal reflux disease without esophagitis; N18.9 Chronic kidney disease, unspecified; E78.5 Hyperlipidemia, unspecified; E66.9 Obesity, unspecified; Z95.5 Presence of coronary angioplasty implant and graft; Z79.01 Long term (current) use of anticoagulants; Z79.82 Long term (current) use of aspirin; Z79.899 Other long term (current) drug therapy

== ENCOUNTER 2019-08-13 09:08 | Inpatient (IN) | payer MEDICARE, MEDICAID ==
[2019-08-13] MEDS ORDERED: SODIUM CHLORIDE 0.9% (FLUSH) 10 ML SYG IV PRN ×2 (09:28→12:34)
[2019-08-13] MEDS ORDERED: ALBUTEROL SULFATE 2.5 MG/3 ML VIAL NEB ONE (09:28)
--- NOTE | 2019-08-13 09:38 | ED.PDOC ---
History of Present Illness - General Chief Complaint: Respiratory Problem Stated Complaint: Low O2 sat, altered mental status Time Seen by Provider: 08/13/19 09:28 Source: patient, RN notes reviewed, Vital Signs reviewed, EMS notes reviewed Exam Limitations: other - patient with dementia - History of Present Illness Initial Comments: Patient is a 73-year-old white female who [facility] from the [facility] with complaints of altered mental status and low oxygen saturation. Per EMS, as patient has dementia and is unable to give us a history, patient noted to be hypoxic and altered this morning when nurses were doing rounds. Patient denies any symptoms. Per EMS patient has had fever, hypoxia, dyspnea, tachypnea. Hypoxemia is improved with oxygen, 2 L bring her to 96%. Nothing worse with her symptoms. Timing/Duration: 7-24 hours Severity: moderate Activities at Onset: none Possible Cause: no prior episodes Improving Factors: other - Hypoxemia improved with O2. Worsening Factors: nothing Associated Symptoms: other - Confusion Respiratory Risk Factors: no cause identified Allergies/Adverse Reactions: Allergies NO KNOWN ALLERGY Allergy (Verified 09/05/16 13:36) Home Medications: Ambulatory Orders Apixaban [Eliquis] 2.5 mg PO BID 09/05/16 Metoprolol Succinate [Metoprolol Succinate ER] 50 mg PO DAILY 09/05/16 Atorvastatin Calcium 40 mg PO BEDTIME 04/21/18 Furosemide Tab [Lasix Tab] 40 mg PO DAILY 04/21/18 hydrALAZINE HCl [HydrALAzine HCl] 25 mg PO TID 04/21/18 Nitroglycerin Patch 0.4 mg/Hr [Nitro-Dur PATCH 0.4 mg/hour] 0.4 mg TOP QD 02/01/19 Aspirin [Aspirin Low Strength] 81 mg PO DAILY 03/04/19 Clonidine HCl 0.1 mg PO Q12HR PRN 03/04/19 Cyanocobalamin [Vitamin B 12] 500 mcg PO DAILY 03/04/19 Gabapentin 300 mg PO TID 03/04/19 Acetaminophen [Tylenol] 1,000 mg PO BEDTIME 06/02/19 Cetirizine HCl [Zyrtec] 10 mg PO DAILY 06/02/19 Citalopram Hydrobromide 10 mg PO DAILY 06/02/19 Docusate Sodium [Colace] 100 mg PO BID 06/02/19 Fluticasone Prop 0.05% Nasal [Flonase Nasal Azalea] 50 mcg DEREK BID 06/02/19 Pantoprazole Tablet [Protonix] 40 mg PO DAILY 06/02/19 Acetamin W/Cod #3 Tab [Tylenol w/CODEINE #3] 1 - 2 ea PO Q6HR PRN #30 tab 06/08/19 Magnesium Oxide [Mag-Ox Tab] 400 mg PO BID #30 tab 06/08/19 Multiple Vitamins W/ Iron [Multi Vitamin with Iron] 1 tab PO DAILY #30 tab 06/08/19 Nystatin Powder 15 gm TOP TID 07/16/19 Review of Systems - Review of Systems Review of Systems: 08/13/19 09:38 A full review of systems is difficult to obtain secondary to patient's altered mental status and dementia. Constitutional: States: fever, weakness EENTM: States: no symptoms reported Respiratory: States: orthopnea, short of breath Cardiology: Denies: chest pain, palpitations Gastrointestinal/Abdominal: Denies: abdominal pain, nausea, vomiting Genitourinary: States: no symptoms reported Musculoskeletal: States: no symptoms reported Skin: States: no symptoms reported Neurological: States: weakness. Denies: numbness, seizure, tingling Unable to Obtain Due To: dementia Past Medical History (General) - Patient Medical History Hx Seizures: No Hx Stroke: No Hx Asthma: No Hx of COPD: No Hx Cardiac Disorders: Yes - Hyperlipidemia; A fib Hx Congestive Heart Failure: Yes Hx Pacemaker: No Hx Hypertension: Yes Hx Diabetes: No Hx Gastroesophageal Reflux: Yes Hx Cancer: Yes - Uterine-remission Hx MRSA: No - Vaccination History Hx Tetanus, Diphtheria Vaccination: No Hx Influenza Vaccination: - Unknown Hx Pneumococcal Vaccination: - Unknown - Social History Hx Tobacco Use: No Hx Alcohol Use: No Hx Substance Use: No Hx Substance Use Treatment: No Hx Depression: No Hx Physical Abuse: No Hx Emotional Abuse: No - Activities of Daily Living [facility] (if applicable[facility] [place] - Female History Patient : No Family Medical History - Family History Mother Family History: Unknown Living Status: Hx Family Asthma: Yes - father Hx Family Congestive Heart Failure: Yes - father Hx Family Hypertension: Yes - father Hx Cardiac Disease: Yes - father Hx Family Cancer: Yes - lungs-mom Father Living Status: Cause of : [place] Hx Cardiac Disease: Yes Physical Exam - Physical Exam General Appearance: Alert, Anxious, Comfortable, Obese, Well Developed, Well Groomed, Well Nourished Eyes, Ears, Nose, Throat Exam: PERRL/EOMI, normal ENT inspection, pharynx normal Neck: non-tender, full range of motion, supple, normal inspection Respiratory: chest non-tender, respiratory distress - Mild, rhonchi - Diffusely throughout Cardiovascular/Chest: no edema, no gallop, no JVD, no murmur, irregularly irregular Peripheral Pulses: radial,right: 2+, radial,left: 2+ Gastrointestinal/Abdominal: normal bowel sounds, non tender, soft, no organomegaly Extremity: normal range of motion, non-tender, normal inspection Neurologic: home care assistant II-XII nml as tested, no motor/sensory deficits, alert, normal mood/affect, other - Patient is only oriented to self. Per the [facility], this is not her baseline. Skin Exam: normal color, warm/dry Lymphatic: no adenopathy Progress - Progress Progress: Differential diagnosis: Pneumonia, influenza, sepsis, CVA, CHF among others. 08/13/19 11:01 Patient with continued intermittent hypoxia. Plan on admission for CHF exacerbation and oxygen therapy. I have discussed this plan of care with the patient and her family and they voiced understanding and agreement. I have discussed this patient with Dereje Sharp, MARCO ANTONIO, and patient is accepted for admission. 08/13/19 11:06 Teo Brothers M.D. #[id number] - Results/Orders Results/Orders: EKG performed on 13 August 2019 at 0925 hrs.: Atrial fibrillation with PVCs at 84 bpm, right bundle branch block, lateral infarct, age undetermined, T wave changes inferiorly concerning for ischemia, abnormal EKG. No comparison EKG. EXAM DESCRIPTION: Chest,1 View CLINICAL HISTORY: 73 years Female, hypoxemia and AMS COMPARISON: Radiograph of the chest dated 07/19/2019.. TECHNIQUE: AP radiograph of the chest was obtained. FINDINGS: Trachea is midline.The cardiomediastinal silhouette is enlarged in size. The pulmonary vasculature is within normal limits. Bilateral pleural effusions with associated airspace opacities of the bilateral lower lobes, worse on the left side. IMPRESSION: Enlarged cardiac silhouette. Bilateral pleural effusions with associated airspace opacities of the bilateral lower lobes, worse on the left side. Electronically signed by: Davi Sims MD 08/13/2019 9:59 08/13/19 09:28 Sodium Chloride 0.9% (Flush) [Saline Flush Syringe] 10 ml IV PRN PRN SPUTUM CULTURE Stat Pulse Oximetry Assessment DAILY 08/13/19 09:30 EKG STAT 08/13/19 09:44 BLOOD CULTURE Stat 08/13/19 10:52 Catheter:Sanders QSHIFT 08/13/19 10:53 URINALYSIS Stat 08/14/19 09:00 Pulse Ox Daily Laboratory Results - last 24 hr 08/13/19 08/13/19 08/13/19 09:44 09:44 09:44 WBC 7.0 RBC 2.83 L Hgb 8.6 L Hct 25.8 L MCV 91.5 MCH 30.6 MCHC 33.4 RDW 19.2 H Plt Count 315 MPV 7.3 L Absolute Neuts (auto) 5.80 Absolute Lymphs (auto) 0.60 L Absolute Monos (auto) 0.60 Absolute Eos (auto) 0.00 Absolute Basos (auto) 0.10 Neutrophils % 82.3 H Lymphocytes % 8.7 L Monocytes % 8.2 Eosinophils % 0.1 L Basophils % 0.7 Sodium 129 L Potassium 3.1 L Chloride 94 L Carbon Dioxide 26 Anion Gap 12.1 BUN 34 H Creatinine 3.56 H BUN/Creatinine Ratio 9.6 L Random Glucose 89 Serum Osmolality 266.0 L Lactic Acid 1.2 Calcium 12.7 H* Total Bilirubin 1.0 AST 27 ALT 16 Alkaline Phosphatase 92 B-Natriuretic Peptide 1990.0 H* Serum Total Protein 10.8 H Albumin 2.2 L Globulin 8.6 H Albumin/Globulin Ratio 0.3 L Departure - Departure Clinical Impression: Hypoxemia Congestive heart failure Qualifiers: Heart failure type: unspecified Heart failure chronicity: acute on chronic Qualified Code(s): I50.9 - Heart failure, unspecified Fluid overload Qualifiers: Hypervolemia type: other Qualified Code(s): E87.79 - Other fluid overload Time of Disposition: 11:04 Disposition: Admit Patient Condition: Fair Departure Forms: ED Discharge - Pt. Copy, Patient Portal Self Enrollment Referrals: Michael Dillon MD [Primary Care Provider] - 1-2 Weeks Home Medications: Ambulatory Orders Apixaban [Eliquis] 2.5 mg PO BID 09/05/16 Metoprolol Succinate [Metoprolol Succinate ER] 50 mg PO DAILY 09/05/16 Atorvastatin Calcium 40 mg PO BEDTIME 04/21/18 Furosemide Tab [Lasix Tab] 40 mg PO DAILY 04/21/18 hydrALAZINE HCl [HydrALAzine HCl] 25 mg PO TID 04/21/18 Nitroglycerin Patch 0.4 mg/Hr [Nitro-Dur PATCH 0.4 mg/hour] 0.4 mg TOP QD 02/01/19 Aspirin [Aspirin Low Strength] 81 mg PO DAILY 03/04/19 Clonidine HCl 0.1 mg PO Q12HR PRN 03/04/19 Cyanocobalamin [Vitamin B 12] 500 mcg PO DAILY 03/04/19 Gabapentin 300 mg PO TID 03/04/19 Acetaminophen [Tylenol] 1,000 mg PO BEDTIME 06/02/19 Cetirizine HCl [Zyrtec] 10 mg PO DAILY 06/02/19 Citalopram Hydrobromide 10 mg PO DAILY 06/02/19 Docusate Sodium [Colace] 100 mg PO BID 06/02/19 Fluticasone Prop 0.05% Nasal [Flonase Nasal Azalea] 50 mcg DEREK BID 06/02/19 Pantoprazole Tablet [Protonix] 40 mg PO DAILY 06/02/19 Acetamin W/Cod #3 Tab [Tylenol w/CODEINE #3] 1 - 2 ea PO Q6HR PRN #30 tab 06/08/19 Magnesium Oxide [Mag-Ox Tab] 400 mg PO BID #30 tab 06/08/19 Multiple Vitamins W/ Iron [Multi Vitamin with Iron] 1 tab PO DAILY #30 tab Nystatin Powder 15 gm TOP TID 07/16/19 Decision To Admit - Decistion To Admit Decision to Admit Reason: Admit from ER Decision to Admit Date: 08/13/19 Decision to Admit Time: 11:05
--- NOTE | 2019-08-13 10:00 | RAD ---
EXAM DESCRIPTION: Chest,1 View CLINICAL HISTORY: 73 years Female, hypoxemia and AMS COMPARISON: Radiograph of the chest dated 07/19/2019.. TECHNIQUE: AP radiograph of the chest was obtained. FINDINGS: Trachea is midline.The cardiomediastinal silhouette is enlarged in size. The pulmonary vasculature is within normal limits. Bilateral pleural effusions with associated airspace opacities of the bilateral lower lobes, worse on the left side. IMPRESSION: Enlarged cardiac silhouette. Bilateral pleural effusions with associated airspace opacities of the bilateral lower lobes, worse on the left side. Electronically signed by: Davi Sims MD 08/13/2019 9:59 AM COMPARATIVE SOCIOLOGY PROFESSOR
[2019-08-13] MEDS ORDERED: FUROSEMIDE INJ 40 MG/4 ML VIAL IV ONE (10:53)
--- NOTE | 2019-08-13 11:50 | HP ---
SUPERVISING PHYSICIAN: Reynold Groves M.D. CHIEF COMPLAINT: Low O2 saturations with altered mental status. HISTORY OF PRESENT ILLNESS: Ms. Rivera is a 73 year-old female patient that resides at [facility]. She was brought to the Emergency [facility] today after there were complaints of altered mental status and low oxygen saturations. The patient has severe dementia and is unable to provide any significant medical history, therefore most medical records were obtained from the Emergency Room note and past medical history and admissions. It was reported by EMS that the patient was hypoxic on arrival but improved up to 96% on 2 liters. In the Emergency Room, she was showing to be afebrile with a heart rate of 100 and blood pressure 123/83. Laboratory studies showed hemoglobin 8.6, hematocrit 25.8 with a normal white count of 7,000. Differential did show a left shift. Chemistries showed a low sodium of 129, potassium 3.3, BUN 3.56 with calcium 12.7 corrected to 14 with albumin 2.2. Lactic acid normal at 1.2, BNP was 1990. Urinalysis after Sanders catheter was placed showed trace intact blood with moderate bilirubin, small amount of leukocyte esterase with microscopic showing 3 to 5 RBCs, 20 to 30 WBCs, no epithelials and 2+ bacteria. Blood cultures were obtained and urine culture. She was started on antibiotics. She is now going to be admitted for concerns for exacerbation congestive heart failure exacerbation, hypercalcemia , unable to rule out pneumonia on the left side due to a large pleural effusion that was seen on the initial chest x-ray. PAST MEDICAL HISTORY: 1. Chronic renal insufficiency. 2. Coronary artery disease. 3. Past acute myocardial infarction. 4. Hyperlipidemia. 5. Hypertension. 6. Gastroesophageal reflux disease. 7. Multiple hospitalizations for bilateral pneumonia and hematoma evacuation. 8. Congestive heart failure with last echocardiogram in May 2019 showing grade 2 diastolic dysfunction with an ejection fraction of 55 to 60%. 9. Chronic atrial fibrillation on Eliquis. PAST SURGICAL HISTORY: 1. Multiple stent placements. 2. Hematoma evacuation in June of right buttock from same level fall. HOME MEDICATIONS: 1. Hydralazine 25 mg t.i.d. 2. Spironolactone 25 mg daily. 3. Protonix 40 mg daily. 4. Nystatin powder as needed t.i.d. 5. Nitroglycerin patch 0.4 mg topically daily. 6. Multivitamin 1 tablet daily. 7. Metoprolol succinate 50 mg daily. 8. Magnesium oxide 400 mg b.i.d. 9. Lisinopril 40 mg daily. 10. Gabapentin 300 mg t.i.d. 11. Lasix 40 mg daily. 12. Flonase 50 mcg 1 spray b.i.d. 13. Colace 100 mg daily. 14. Vitamin B12, 500 mcg daily. 15. Clonidine 0.1 mg every 12 hours p.r.n. 16. Citalopram 10 mg daily. 17. Zyrtec 10 mg daily. 18. Atorvastatin calcium 40 mg at bedtime. 19. Aspirin 81 mg. 20. Tylenol 1,000 mg at bedtime. 21. Tylenol #3 one to two every 6 hours for pain p.r.n. ALLERGIES: NO KNOWN DRUG ALLERGIES. FAMILY HISTORY: Noncontributory. SOCIAL HISTORY: The patient resides at [facility]. She is single. She has no history of smoking. Does not use tobacco or illicit drugs. REVIEW OF SYSTEMS: CONSTITUTIONAL: Positive for general malaise and weakness. HEENT: No reported headaches, vision changes, nasal congestion or sore throat. RESPIRATORY: As noted in History of Present Illness, shortness of breath. No reported coughing or wheezing. CARDIOVASCULAR: Denies any chest pains, palpitations or syncopal episodes. GASTROINTESTINAL: No reported nausea, vomiting, diarrhea, constipation or abdominal pain. GENITOURINARY: Denies any dysuria, hematuria, polyuria. MUSCULOSKELETAL: As noted in history of present illness. Incision to the right buttocks for abscess drainage. NEUROLOGIC: As noted in History of Present Illness, increasing lethargy with mental status change, but no reported seizures or ataxia. PHYSICAL EXAMINATION: VITAL SIGNS: Temperature 97.4, pulse 100, blood pressure 123/83, respirations 24, tachypneic with 90% O2 saturations on 2 liter nasal cannula. GENERAL: The patient appears unwell. She does not look to be in any acute distress. HEENT: Tympanic membranes clear bilaterally. Oropharynx is pink with notably dry mucosal membranes. NECK: Supple, nontender with full range of motion. No jugular venous distention noted. CHEST: Lung sounds were diminished more so on the left with notable rhonchi heard throughout. HEART: Irregularly irregular with no appreciable murmurs, gallops, or rubs. ABDOMEN: Obese but soft, nontender. EXTREMITIES: There is no cyanosis, clubbing or edema. NEUROLOGIC: Cranial nerves II-XII are grossly intact. Facial features are symmetrical. No notable nystagmus. The patient appears to be at her baseline mental status on admission to the floor. She is oriented to herself. SKIN: Warm, pink and dry. LABORATORY:: CBC shows white count 7,000, hemoglobin 8.6, hematocrit 25.8, platelet count 315,000. Differential shows a left shift. Chemistries showed sodium 129, potassium 3.1, BUN 34, creatinine 3.56,calcium 12.7 corrected to 14 with albumin 2.2, Lactic acid 1.2. Liver functions were within normal limits. BNP was elevated at 1989. Urinalysis showed trace intact blood, small amount of bilirubin, small amount of leukocyte esterase with microscopic showing 3 to 5 RBCs, 20 to 30 WBCs, 2+ bacteria. RADIOLOGY: CT of the chest is pending. Chest x-ray single view showed enlarged cardiac silhouette with bilateral pleural effusions with associated airspace opacities in the bilateral lower lobes, worse on the left side. ASSESSMENT: 1. Acute on chronic renal failure probably due to some prerenal azotemia due to severe anemia and dehydration. 2. Hypercalcemia with a calcium 12.7 corrected to 14 with albumin 2.2, etiology unknown may be secondary to dehydration, without history of hypercalcemia 3. Chronic anemia due to chronic illness likely hemoconcentrated due to the patient exacerbated by #1. 4. Electrolyte imbalance to include hypokalemia and hyponatremia. 5. Bilateral pneumonia with a normal white count with a recent hospitalization for treatment for bilateral pneumonia with the patient residing in a care facility. 6. 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 7. Chronic congestive heart failure with grade 2 diastolic failure with preserved ejection fraction of approximately 55 to 60% on last echocardiogram in May 2019, again with elevated BNP without exacerbation. 10. Chronic atrial fibrillation on Eliquis, currently showing a controlled rhythm on admission. 11. Hypertension. 12. Previous myocardial infarction with stent placement and history of chronic coronary artery disease. 13. Gastroesophageal reflux disease. PLAN: The patient is going to be admitted to the Medical/Surgical floor for initiation of antibiotic treatment for bilateral pneumonia and hypercalcemia. She is dehydrated on clinical exam. Will go ahead and give her a fluids to help correct the hypercalcemia. Will do CT of the chest to better asses for possible large left pleural effusion versus pneumonia. Will have her on antibiotic coverage to include Cefepime, Levaquin and vancomycin given previous hospitalization and current resident of a alf. Will resume her home medications once those have been updated and verified. I did discuss the case with Dr. Granger and he is in agreement with the current plan of care and notes if she does not improve over the weekend satisfactorily, he will gladly take her in transfer. Will recheck her labs in the morning. Anticipate she will probably need a transfusion given her anemia and her hemoconcentration at this point. I would expect her length of stay to be 2 to 3 days. Until we can transition her to outpatient management will continue to monitor and treat as needed. #[id number] MTDD
[2019-08-13] MEDS ORDERED: ONDANSETRON INJ 4 MG/2 ML VIAL IV PRN (12:34)
[2019-08-13] MEDS ORDERED: ALBUTEROL SULFATE 2.5 MG/3 ML VIAL NEB PRN (12:34)
[2019-08-13] MEDS ORDERED: ACETAMINOPHEN 325 MG TAB PO PRN (12:34)
[2019-08-13] MEDS ORDERED: CEFEPIME 2 GM VIAL ONE ×2 (12:55→21:18)
[2019-08-13] MEDS ORDERED: SODIUM CHLORIDE 0.9% 50ML 50 ML ONE (12:55)
[2019-08-13] MEDS: CEFEPIME 1 GM in SODIUM CHLORIDE 0.9% 50ML 50 ML IVPB SCH (12:58)
[2019-08-13] MEDS ORDERED: IV SET AND CAP CHANGE INJ INJ SCH (13:00)
[2019-08-13] MEDS ORDERED: VANCOMYCIN PER PHARMACY INJ SCH (13:00)
[2019-08-13] MEDS ORDERED: levoFLOXacin 750MG IV 750 MG in PREMIX BAG 1 BAG IVPB ONE (13:00)
[2019-08-13] MEDS ORDERED: VANCOMYCIN HCL INJ 1,000 MG VIAL IVPB ONE (14:55)
[2019-08-13] MEDS ORDERED: SODIUM CHLORIDE 0.9% 250ML 250 ML ONE (14:55)
[2019-08-13] MEDS ORDERED: VANCOMYCIN HCL INJ 500 MG VIAL ONE (14:55)
[2019-08-13] MEDS: VANCOMYCIN HCL INJ 1,000 MG, VANCOMYCIN HCL INJ 500 MG in SODIUM CHLORIDE 0.9% 250ML 25... IVPB SCH (14:59)
[2019-08-13] MEDS: IPRATROPIUM/ALBUTEROL 3 ML VIAL INH SCH ×2 (16:35→20:43)
--- NOTE | 2019-08-13 16:40 | CT ---
Study: CT Chest. Indication: left plerual effusion. hypoxia r/o pneumonia Technique: CT imaging of the chest obtained without intravenous administration of contrast. This exam was performed according to our departmental dose-optimization program, which includes automated exposure control, adjustment of the mA and/or kV according to patient size and/or use of iterative reconstruction technique. Comparison: None. Findings: Moderate to severely motion degraded examination due to marked respiratory motion. Pronounced atherosclerosis great vessels, aorta, coronary arteries. Marked cardiomegaly. Evaluation for lymphadenopathy is limited given noncontrast examination and the motion degradation. Calcified gallstones. Degenerative changes of the spine noted. Age-indeterminate L1 superior endplate fracture. Mild consolidation in the base of the left lower lobe. No pleural effusion or pneumothorax. Impression: Moderate to severely motion degraded examination. Repeat examination recommended when the patient can tolerate. IV contrast would prove useful as well. Left lower lobe consolidation versus atelectasis. Follow-up to resolution recommended. Marked cardiomegaly. Marked atherosclerosis. Cholelithiasis. Age-indeterminate L1 superior endplate fracture. Correlation point tenderness recommended. Electronically signed by: Alexander Carrillo MD 08/13/2019 4:38 PM MOWER SHARPENER
[2019-08-13] MEDS: KCL 20 MEQ/NS 1,000 ML IVS PRN (17:00)
[2019-08-13] MEDS ORDERED: SODIUM CHL 0.9% 50ML MIN-BAG+ 50 ML IVPB ONE (21:19)
[2019-08-13] MEDS ORDERED: SODIUM CHLORIDE 0.9% 500ML 500 ML ONE (21:20)
[2019-08-13] MEDS: GABAPENTIN 300 MG CAP PO SCH ×2 (21:47→23:05)
[2019-08-13] MEDS: MAGNESIUM OXIDE 400 MG TAB PO SCH ×2 (21:49→23:04)
[2019-08-13] MEDS ORDERED: SODIUM CHLORIDE 0.9% 500ML 500 ML IVS ONE (22:15)
[2019-08-14] MEDS: CEFEPIME 1 GM in SODIUM CHLORIDE 0.9% 50ML 50 ML IVPB SCH ×3 (00:31→13:51)
[2019-08-14] MEDS: PANTOPRAZOLE SODIUM IV 40 MG VIAL IV SCH (05:45)
[2019-08-14] MEDS: IPRATROPIUM/ALBUTEROL 3 ML VIAL INH SCH ×4 (07:50→20:39)
--- NOTE | 2019-08-14 08:40 | RAD ---
EXAM: XR Chest, 1 View CLINICAL HISTORY: Pneumonia TECHNIQUE: Frontal view of the chest. COMPARISON: 08/13/2019. FINDINGS: Limitations: None. Lungs: Lung bases clear. Pleural space: Question small left pleural effusion. No pneumothorax. Heart: Stable cardiac enlargement. Mediastinum: Unremarkable. Bones/joints: Unremarkable. Vasculature: Stable vascular congestion. IMPRESSION: 1. Stable vascular congestion. 2. No consolidation identified. Electronically signed by: Stephanie Jaquez MD 08/14/2019 8:39 AM ARC AIR OPERATOR
[2019-08-14] MEDS ORDERED: NITROGLYCERIN 0.4 MG/HR PATCH TOP SCH (09:00)
[2019-08-14] MEDS ORDERED: ENOXAPARIN SODIUM 30 MG/0.3 ML SYG SUBCU SCH (09:00)
[2019-08-14] MEDS ORDERED: CITALOPRAM HBR 20 MG TAB PO SCH (09:00)
[2019-08-14] MEDS ORDERED: METOPROLOL SUCCINATE XL 50 MG TAB PO SCH (09:00)
[2019-08-14] MEDS: KCL 20 MEQ/NS 1,000 ML IVS PRN ×2 (09:08→22:09)
[2019-08-14] MEDS: NYSTATIN POWDER 15GM BTTL TOP SCH ×4 (09:43→21:31)
[2019-08-14] MEDS: GABAPENTIN 300 MG CAP PO SCH ×3 (09:44→21:31)
[2019-08-14] MEDS: MAGNESIUM OXIDE 400 MG TAB PO SCH ×2 (09:44→21:31)
[2019-08-14] MEDS ORDERED: SODIUM CHLORIDE 0.9% 1000ML 1,000 ML IVS ONE (10:48)
[2019-08-14] MEDS ORDERED: CEFEPIME 2 GM VIAL ONE ×2 (12:14→21:02)
[2019-08-14] MEDS ORDERED: SODIUM CHLORIDE 0.9% 50ML 50 ML ONE ×2 (12:14→21:03)
[2019-08-14] MEDS ORDERED: SODIUM CHLORIDE 0.9% 250ML 0 ML ONE (14:47)
[2019-08-14] MEDS ORDERED: VANCOMYCIN HCL INJ 1,000 MG VIAL IVPB ONE ×2 (14:47→21:03)
[2019-08-14] MEDS ORDERED: VANCOMYCIN HCL INJ 500 MG VIAL ONE ×2 (14:47→21:03)
--- NOTE | 2019-08-14 16:54 | PN ---
DATE: 08/14/2019 SUPERVISING PHYSICIAN: Reynold Groves MD SUBJECTIVE: The patient is quite lethargic this morning. She will open her eyes but does not follow much more than basic questions. 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 The patient is also noted to be having several episodes of diarrhea, I have ordered C-diffs. OBJECTIVE: VITAL SIGNS: Temperature 98.4, pulse 89, blood pressure 140/87, oxygen saturation anywhere from 90 to 97% on 2 liter nasal cannula. I&Os: Negative balance of 50 with weight of 103.1 kg. She has had a couple of bowel movements. GENERAL: The patient is lethargic and somnolent but will open her eyes to verbal requests. She does not appear to be in any distress. CHEST: Lung sounds remain diminished with just continued faint rhonchi heard on the left with the left being more diminished compared to the right but no wheezing or rales. HEART: Rate remains irregular but showing a controlled ventricular rate on the monitor. ABDOMEN: Obese, soft, non-tender, positive bowel sounds. EXTREMITIES: No clubbing or edema. NEUROLOGIC: She is again somnolent and lethargic but will move all extremities ad janie with no obvious focal deficits. Her facial features do appear to be symmetrical. There is no notable nystagmus. SKIN: Warm, pink and dry. As noted, on the right buttock there are 2 small incisions with drainage noted from the lower one with cultures pending. LABORATORY: CBC shows a white count of 7,800, hemoglobin is down a little bit to 8, hematocrit down to 24.2. Other counts within normal limits. Differential shows a left shift. Chemistries show an improved sodium of 132, potassium up a little bit to 3.2. BUN 38, creatinine showing to be essentially unchanged at 3.51. Calcium down sightly from 12.7 to 12.3. Urinalysis yesterday did show pyuria and 3+ bacteria. MICROBIOLOGY: Stool cultures are pending. Wound culture of the right buttock incision is pending. Urine culture pending. Blood cultures negative at 24 hours and a C-difficile toxin A and B pending. RADIOLOGY: Repeat chest x-ray single view shows table vascular congestion with no consolidations identified. There was a CT of the chest done yesterday which did show a left lower lobe consolidation versus atelectasis. ASSESSMENT: 1. Acute on chronic renal failure probably due to some prerenal azotemia due to severe anemia and dehydration. Showing creatine to be returning to base line levels 2. Hypercalcemia with a calcium 12. corrected to 13 with albumin 2.2, etiology unknown failing to correct with fluids, without history of hypercalcemia 3. Sepsis secondary to multiple infectious sources including left-sided pneumonia, urinary tract infection and chronic wound to the right buttock with cultures pending. 4. Chronic anemia due to chronic illness stable. 5. Electrolyte imbalance to include hyponatremia. Hypokalemia on admit has resolved 6. Left side pneumonia verus compressive atelectasis with plural effusion with a normal white count with a recent hospitalization for treatment for bilateral pneumonia with the patient residing in a care facility. 7. 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 8. Urinary tract infection cultures pending. 9. Chronic congestive heart failure with grade 2 diastolic failure with preserved ejection fraction of approximately 55 to 60% on last echocardiogram in May 2019, again with elevated BNP without exacerbation. 10. Chronic atrial fibrillation on Eliquis, witha controlled ventricular rate 11. Hypertension.Stable 12. Previous myocardial infarction with stent placement and history of chronic coronary artery disease. 13. Gastroesophageal reflux disease. PLAN: I talked to Dr. Granger this morning. We this morning she is is still dehydrated both on labs and clinical assessment and Dr. Granger is in agreement that we need to give her some fluid challenges to see if we can help resolve some of the hypercalcemia which could be contributing to her somnolence. I will go ahead and give her a normal saline liter bolus. Will follow this up with another liter at 125 and will recheck a BMP later this afternoon. We will need to be cautious on fluid resuscitation given her fragility and her history of congestive heart failure. She continues on antibiotic coverage with vancomycin, Cefepime and Levaquin due to the fact that she has had multiple hospitalizations, antibiotics and resides on a long-term care facility. Cultures are pending on urine, wound culture and blood cultures. Will await final results to further target antibiotic therapy. Will continue to hold her Lasix and her spironolactone today. I reviewed her medications. She is not on any medication that could be resulting in the hypercalcemia. She is on DVT prophylaxis with Eliquis. After the CT, it looks like at this point the pleural effusion is more atelectasis with possible pneumonia and given the fact that she seems to reside in a long-term care facility and lays on her left side due to the wound on her right buttock, I feel like this is more atelectasis than fluid superimposed with pneumonia. Will continue to monitor her closely and as needed and consult with Dr. Hassan as needed. Will monitor her hemoglobin and hematocrit and I anticipate that once she is more euvolemic, she would probably more anemic than she currently presents as she is probably hemoconcentrated. Once we have results of the BMP this afternoon, I will touch base with Dr. Granger to help with further management. If the patient continues to be refractory to current treatment, we did discuss possibly that she should be transferred for continued management and high level care. Until we can further assess clinically with lab this afternoon, we will continue to monitor and treat as needed. Unless we transfer, I would anticipate at least another 2 to 3 days of hospitalization. #[id number] [facility]
[2019-08-14] MEDS ORDERED: REMOVE OLD PATCH TOP SCH (21:00)
[2019-08-14] MEDS ORDERED: SODIUM CHLORIDE 0.9% 250ML 250 ML ONE (21:03)
[2019-08-15] MEDS: CEFEPIME 1 GM in SODIUM CHLORIDE 0.9% 50ML 50 ML IVPB SCH (02:12)
[2019-08-15] MEDS: VANCOMYCIN HCL INJ 1,000 MG, VANCOMYCIN HCL INJ 500 MG in SODIUM CHLORIDE 0.9% 250ML 25... IVPB SCH (02:44)
[2019-08-15] MEDS: PANTOPRAZOLE SODIUM IV 40 MG VIAL IV SCH (05:46)
[2019-08-15] MEDS: IPRATROPIUM/ALBUTEROL 3 ML VIAL INH SCH (07:52)
[2019-08-15] MEDS ORDERED: METOPROLOL TARTRATE INJ 5 MG/5 ML VIAL IV ONE (10:10)
[2019-08-15 11:11] VITALS: BP 150/84; TEMP 98.7; O2SAT 97
[2019-08-15] MEDS ORDERED: levoFLOXacin 500MG IV 500 MG in PREMIX BAG 1 BAG IVPB SCH (13:00)
--- NOTE | 2019-08-16 09:26 | DS ---
SUPERVISING PHYSICIAN: Reynold Groves MD Transferred to [facility] for treatment of hypercalcemia. ADMISSION DIAGNOSIS; 1. Acute on chronic renal failure probably due to some prerenal azotemia due to severe anemia and dehydration. 2. Hypercalcemia with a calcium 12.7 corrected to 14 with albumin 2.2, etiology unknown may be secondary to dehydration, without history of hypercalcemia. 3. Chronic anemia due to chronic illness likely hemoconcentrated due to the patient exacerbated by #1. 4. Electrolyte imbalance to include hypokalemia and hyponatremia. 5. Bilateral pneumonia with a normal white count with a recent hospitalization for treatment for bilateral pneumonia with the patient residing in a care facility. 6. 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 7. Chronic congestive heart failure with grade 2 diastolic failure with preserved ejection fraction of approximately 55 to 60% on last echocardiogram in May 2019, again with elevated BNP without exacerbation. 10. Chronic atrial fibrillation on Eliquis, currently showing a controlled rhythm on admission. 11. Hypertension. 12. Previous myocardial infarction with stent placement and history of chronic coronary artery disease. 13. Gastroesophageal reflux disease. DISCHARGE DIAGNOSIS: 1. Acute on chronic renal failure probably due to some prerenal azotemia due to severe anemia and dehydration. Showing creatine to be returning to baseline levels. 2. Hypercalcemia with a calcium 12, corrected to 13 with albumin 2.2, etiology unknown failing to correct with fluids, without history of hypercalcemia. 3. Sepsis secondary to multiple infectious sources including left-sided pneumonia, urinary tract infection and chronic wound to the right buttock with cultures pending. 4. Chronic anemia due to chronic illness stable. 5. Electrolyte imbalance to include hyponatremia. Hypokalemia on admit has resolved. 6. Left side pneumonia verus compressive atelectasis with plural effusion with a normal white count with a recent hospitalization for treatment for bilateral pneumonia with the patient residing in a care facility. 7. 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 8. Urinary tract infection cultures pending. 9. Chronic congestive heart failure with grade 2 diastolic failure with preserved ejection fraction of approximately 55 to 60% on last echocardiogram in May 2019, again with elevated BNP without exacerbation. 10. Chronic atrial fibrillation on Eliquis, with a controlled ventricular rate 11. Hypertension.Stable 12. Previous myocardial infarction with stent placement and history of chronic coronary artery disease. 13. Gastroesophageal reflux disease. REASON FOR HOSPITALIZATION: Ms. Rivera is a 73 year-old female patient that resides at assisted skilled nursing. She was brought to the Emergency Roomy today after there were complaints of altered mental status and low oxygen saturations. The patient has severe dementia and is unable to provide any significant medical history, therefore most medical records were obtained from the Emergency Room note and past medical history and admissions. It was reported by EMS that the patient was hypoxic on arrival but improved up to 96% on 2 liters. In the Emergency Room, she was showing to be afebrile with a heart rate of 100 and blood pressure 123/83. Laboratory studies showed hemoglobin 8.6, hematocrit 25.8 with a normal white count of 7,000. Differential did show a left shift. Chemistries showed a low sodium of 129, potassium 3.3, BUN 3.56 with calcium 12.7 corrected to 14 with albumin 2.2. Lactic acid normal at 1.2, BNP was 1990. Urinalysis after Sanders catheter was placed showed trace intact blood with moderate bilirubin, small amount of leukocyte esterase with microscopic showing 3 to 5 RBCs, 20 to 30 WBCs, no epithelials and 2+ bacteria. Blood cultures were obtained and urine culture. She was started on antibiotics. She is now going to be admitted for concerns for exacerbation congestive heart failure exacerbation, hypercalcemia , unable to rule out pneumonia on the left side due to a large pleural effusion that was seen on the initial chest x-ray. LABORATORY: White count was within normal limits at 7,400. Prior to discharge and transfer, hemoglobin and hematocrit were stable with last hemoglobin 8.4 and hematocrit 25.7. She did have a left shift. She showed a persistent hyponatremia, but was improving and up to 134 prior to discharge. Potassium normalized at 3.9. BUN remained elevated and was at 40 on discharge. Creatinine had gone from 3.56 to 3.0. Lactic acid was normal on admission and calcium was initially elevated at 12.7 which corrected for an albumin at 2.2 to 14. After treatment with fluids for 48 hours, she did show a slight improvement to 12, but essentially remained stable at 13 to 14 after corrected for hypoalbuminemia. Her calcium on transfer was 12.5 corrected to 14 with an albumin of 1.9. Urinalysis showed a significant pyuria and bacteruria with a small amount of leukocyte esterase, bilirubin and trace amount of blood on dipstick with microscopic revealing 20 to 30 WBCs, 3 to 5 RBCs, 0 epithelials and 2+ bacteria of a cathed specimen. She had one stool occult blood that was negative. MICROBIOLOGY: Stool culture was pending. Wound culture was pending. Urine culture was pending. Blood cultures were negative at 48 hours. She had one C. difficile toxin A and B that was negative. RADIOLOGY: Chest x-ray initially on admission per radiologic interpretation showed enlarged cardiac silhouette with bilateral pleural effusions with associated airspace opacities of bilateral lower lobes, worse on the left side. This was followed with a chest CT and per radiologic interpretation showed left lower lobe consolidation versus atelectasis. Please see that report for details. Final chest x-ray was performed on 08/14/19 and per radiologic interpretation showed stable vascular congestion with no consolidations identified at that time. HOSPITAL COURSE: Ms. Rivera was admitted initially for what was thought to be a congestive heart failure exacerbation with her elevated BNP that was over 1900. Review of her lab findings showed she had elevated creatinine and BUN. Review of records also showed that she previously had a BNP that was well over 5,000 on last hospitalization within the last 3 weeks. She was showing no respiratory distress on admission initially, but she was quite somnolent and there was concern given that she had a calcium of 12.5, approximately 13 to 14 with correction for hypoalbuminemia, that her symptoms may be attributed to the hypercalcemia. It was also noted that she had a urinary tract infection and there was concern that she had left sided pneumonia. Her atrial fibrillation was chronic and was controlled during hospitalization. Consultation via phone was done with Dr. Granger who knows the patient well and with his recommendation and help, we attempted to correct her calcium as the patient has no previous history of hypercalcemia. We did started with IV fluids slowly given the patient had a significant amount of congestive heart failure. The patient showed some slight improvement. The day before transfer, she did have some mental status improvement, however, the next day after 48 hours of IV fluids, she showed refractory to treatment with once again her calcium at 12.5. This corrected to approximately 14 with a 1.9 albumin. Given the failure of treatment for hypercalcemia and underlying urinary tract infection, pneumonia and other comorbidities including acute renal failure, after discussion with Dr. Granger, he recommended the patient be transferred to [facility] in efforts that they could do further workup to further investigate the etiology of the hypercalcemia. There was minimal testing available in an acute situation for hypercalcemia here as well as we do not have calcitonin to assist with treatment. Given that she failed to respond to fluids, the patient was transferred to [facility]. PLAN: Ms. Rivera was transferred via ground ambulance to [facility] with acceptance from the hospitalist reception centre manager. Vital signs on transfer showed temperature 98.7, pulse 83, blood pressure 150/84, respirations 20, saturation 97% on 2 liters nasal cannula. PHYSICAL ASSESSMENT: GENERAL: The patient is lethargic and somnolent but will open her eyes to verbal requests. She does not appear to be in any distress. CHEST: Lung sounds remain diminished with just continued faint rhonchi heard on the left with the left being more diminished compared to the right but no wheezing or rales. HEART: Rate remains irregular but showing a controlled ventricular rate on the monitor. ABDOMEN: Obese, soft, nontender, positive bowel sounds. EXTREMITIES: No clubbing or edema. NEUROLOGIC: She is again somnolent and lethargic but will move all extremities ad janie with no obvious focal deficits. Her facial features do appear to be symmetrical. There is no notable nystagmus. SKIN: Warm, pink and dry. As noted, on the right buttock there are 2 small incisions with drainage noted from the lower one with cultures pending. Documentation including labs, progress notes, history and physical were provided along with imaging studies at time of transfer. CONDITION ON TRANSFER: The patient was guarded, but stable. DISPOSITION: The patient was transferred to [facility] via ground ambulance. #[id number] [id number]
== END 2019-08-15 10:20 | disposition short-term general hospital (02) | DRG 871 ==
LOC: ER 09:08 → OBSVTOIN 11:49 → MS 11:49
PROVIDERS: ADMIT Nurse Practitioner Family; ATTEND Nurse Practitioner Family
DX: A41.9 Sepsis, unspecified organism (principal); J18.9 Pneumonia, unspecified organism; N39.0 Urinary tract infection, site not specified; E87.1 Hypo-osmolality and hyponatremia; N17.9 Acute kidney failure, unspecified; I50.32 Chronic diastolic (congestive) heart failure; I48.20 Chronic atrial fibrillation, unspecified; I13.0 Hypertensive heart and chronic kidney disease with heart failure and stage 1 through stage 4 chronic kidney disease, or unspecified chronic kidney disease; E86.0 Dehydration; N18.9 Chronic kidney disease, unspecified; E83.52 Hypercalcemia; D64.9 Anemia, unspecified; E87.6 Hypokalemia; T81.89XD Other complications of procedures, not elsewhere classified, subsequent encounter; Z79.01 Long term (current) use of anticoagulants; I25.2 Old myocardial infarction; I25.10 Atherosclerotic heart disease of native coronary artery without angina pectoris; Z95.5 Presence of coronary angioplasty implant and graft; K21.9 Gastro-esophageal reflux disease without esophagitis; F03.90 Unspecified dementia, unspecified severity, without behavioral disturbance, psychotic disturbance, mood disturbance, and anxiety; E88.09 Other disorders of plasma-protein metabolism, not elsewhere classified; Z79.82 Long term (current) use of aspirin; Z79.899 Other long term (current) drug therapy